=== PATIENT | female | born 1945 | race Caucasian/White ===

== ENCOUNTER → 2020-11-04 08:55 | Outpatient (BNVA) | payer MEDICARE, SELFPAY | PROVIDERS: PCP Internal Medicine; Visit Provider Hospitalist | DX: J98.4 Other disorders of lung (principal); J45.20 Mild intermittent asthma, uncomplicated; I38 Endocarditis, valve unspecified; R91.8 Other nonspecific abnormal finding of lung field | CPT/HCPCS: 99212 ==

== ENCOUNTER → 2021-05-11 12:53 | Outpatient (BNVA) | payer MEDICARE, SELFPAY | PROVIDERS: PCP Internal Medicine; Visit Provider Hospitalist | DX: J44.9 Chronic obstructive pulmonary disease, unspecified (principal) ==

== ENCOUNTER 2021-05-11 13:42 | Outpatient (REF) | payer MEDICARE, SELFPAY ==
[2021-05-11 14:01] LABS: MANUAL DIFF FLAG NO
[2021-05-11 14:06] LABS: Basophils Absolute Auto 0.1 X10*3/uL (0.0-0.2); Basophils Percent Auto 0.9 % (0-2); Eosinophils Absolute Auto 0.3 X10*3/uL (0.0-0.4); Eosinophils Percent Auto 4.2 % (0-4); Hematocrit 35.7 % (37.0-47.0); Imm Gran Abs Auto 0.05 X10*3/uL (0.00-0.03); Imm Gran Pct Auto 0.7 % (0.0-0.4); Lymphocytes Absolute Auto 1.5 X10*3/uL (1.2-4.9); Mean Corpuscular HGB Conc 30.8 g/dl (31.0-35.0); Mean Corpuscular Hemoglobin 26.1 pg (27.0-33.0); Mean Corpuscular Volume 84.6 fL (80.0-98.0); Monocytes Absolute Auto 0.3 X10*3/uL (0.1-1.2); Monocytes Percent Auto 4.3 % (2-11); Neutrophils Absolute Auto 5.3 x10*3/uL (2.0-8.3); Neutrophils Percent Auto 69.9 % (45-73); Platelet Count 241 X10*3/uL (160-400); Red Blood Count 4.22 X10*6/uL (4.20-5.50); Red Cell Distribution Width 14.4 % (11.0-16.0); White Blood Count 7.6 X10*3/uL (4.8-10.8)
[2021-05-11 14:15] LABS: D Dimer High Sensitivity 189 NG/ML
[2021-05-11 14:19] LABS: Anion Gap 11 (12-20); Blood Urea Nitrogen 14 mg/dL (9-16); Calcium 9.5 mg/dL (8.4-10.2); Carbon Dioxide 30 mmol/L (22-29); Chloride 103 mmol/L (96-108); Estimated Glomerular Filt Rate 56; Glucose Random 254 mg/dL (60-115); Potassium 3.7 mmol/L (3.3-5.1); Sodium 140 mmol/L (135-145)
--- NOTE | 2021-05-11 17:38 | PFT_ITS ---
Forced vital capacity and FEV1 are both moderately reduced. FEV1 over FVC ratio is normal. ELA01-59 is also moderately reduced. MVV normal. No response to bronchodilator therapy. Total lung capacity and residual volume are slightly decreased. Diffusion capacity is markedly decreased. CONCLUSION: Mild to moderate degree of restrictive pulmonary disorder. No significant obstructive airways disorder and no response to bronchodilator therapy. Markedly decreased in diffusion capacity may be due to multi factors such as pulmonary Emphysema, Pulmonary vascular disease.and Non Pulmonary factors . Sixto Velasquez MD MSB/MODL / [id number] MTDD
[2021-05-12 15:02] LABS: Scleroderma 70 Antibody <1.0 NEG AI (<1.0 NEG)
[2021-05-12 21:57] LABS: Anti Nuclear Antibody Pattern Nuclear, Homogeneous; Anti Nuclear Antibody Screen POSITIVE (NEGATIVE); Anti Nuclear Antibody Titer 1:40 titer
== END 2021-05-11 13:43 | disposition home or self-care (01) ==
LOC: HO.RESP 13:42
PROVIDERS: PCP Internal Medicine; Visit Provider Hospitalist
DX: I38 Endocarditis, valve unspecified (principal); I27.20 Pulmonary hypertension, unspecified
CPT/HCPCS: 36415; 80048; 85025; 85379; 86038; 86039; 86235; 94060; 94727; 94729; 99212

== ENCOUNTER → 2021-06-18 13:35 | Outpatient (BNVA) | payer MEDICARE, SELFPAY | PROVIDERS: PCP Internal Medicine; Visit Provider Hospitalist | DX: J98.4 Other disorders of lung (principal); J45.20 Mild intermittent asthma, uncomplicated; J40 Bronchitis, not specified as acute or chronic; R91.8 Other nonspecific abnormal finding of lung field; I27.20 Pulmonary hypertension, unspecified; I38 Endocarditis, valve unspecified | CPT/HCPCS: 99212 ==

== ENCOUNTER → 2022-03-08 15:04 | Outpatient (BNVA) | payer MEDICARE, SELFPAY | PROVIDERS: PCP Internal Medicine; Visit Provider Hospitalist | DX: J44.9 Chronic obstructive pulmonary disease, unspecified (principal); J98.4 Other disorders of lung; I27.20 Pulmonary hypertension, unspecified; R91.8 Other nonspecific abnormal finding of lung field; I38 Endocarditis, valve unspecified; J40 Bronchitis, not specified as acute or chronic | CPT/HCPCS: 94618; 99212 ==

== ENCOUNTER → 2022-05-31 13:10 | Outpatient (BNVA) | payer MEDICARE, SELFPAY | PROVIDERS: PCP Internal Medicine; Visit Provider Hospitalist | DX: J44.9 Chronic obstructive pulmonary disease, unspecified (principal); J98.4 Other disorders of lung; R91.8 Other nonspecific abnormal finding of lung field; I27.20 Pulmonary hypertension, unspecified; I38 Endocarditis, valve unspecified; Z99.81 Dependence on supplemental oxygen | CPT/HCPCS: 99212 ==

== ENCOUNTER 2024-07-15 12:56 | Outpatient (AMB) | payer MEDICARE, SELFPAY ==
--- NOTE | 2024-07-15 13:06 | MHC.OFFVIS ---
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 She has been having more shortness of breath lately. She was found to have a nodular finding on her mammogram. Under being a large tumor. She did have surgery November 16 1017 at [facility]. She underwent lumpectomy. Postoperatively she has significant shortness of breath. Chest x-ray demonstrated perihilar congestion and opacities in the diffuse right lung and also right left lung have weight. She was placed on oxygen. After 1 day the patient was discharged. Continued having significant shortness of breath she could not tolerate the symptoms and therefore she went back to the ED at [facility]. There she had a CT scan of the chest demonstrating no evidence of any pulmonary emboli. However, she has small pleural effusions and she has some areas of ground-glass opacities primarily in the mid to upper lung zones. Her brain not her Pap significantly elevated over 1000. She was aggressively diuresed. She was able to be off oxygen CT scan also demonstrated pulmonary nodules. She has had multiple scans in the past primarily abdominal CT scans that have demonstrated stable nodular densities. However, then look at the whole lung field. The patient now is home. Her respiratory status is still an issue. Moderate dyspnea on exertion. She had been on inhalers in the past. However she was having adverse effects with the rec leg cramp. She subsequently is stop the inhalers altogether. She is wondering if she should be on maintenance inhaler. She typically sees the best effect when she is sick. She has not had pulmonary function studies. The patient has been using her CPAP. The CPAP therapy continues to be affecting beneficial. However, she is no longer working appropriately. She does get her supplies through [employer]. It appears the machine has malfunction. And likely needs to be replaced. At this point I will give her placement prescription. She needs to continue using his CPAP due to her increased cardiovascular risk. She does have evidence of pulmonary hypertension. She of also had an echocardiogram demonstrating moderate to severe mitral stenosis. No history rheumatic fever. 07/18/2019 the patient is here for pulmonary follow-up visit. Overall she is feeling better. Monitoring closely her volume status. We did review again her findings from [facility] where she had the elevated brain atretic peptide suggesting heart failure but also had areas of nodular densities and ground-glass opacities on her CT scan. Therefore, repeat CT scan of the chest should be done in November which should be a year from her last 1. We did review her pulmonary function studies demonst rating no evidence of any obstruction although she does have a restrictive ventilatory defect consistent with restrictive lung disease. Partly due to her body habitus. 11/04/2020 the patient is here for pulmonary follow-up visit. Overall the patient has been doing okay from a respiratory status. She continues to have shortness of breath with activity. [id number] severity. Unfortunately, she was told that her mitral valve is getting worse. She was scheduled to see Cardiology for cardiac catheterization. She is thinking about going elsewhere such as [place] to be further evaluated. In the meantime we did review again her pulmonary function studies demonstrating no evidence of any obstruction although she does have a restrictive component. The patient does not have to use regular inhalers although she should have a rescue inhaler available as needed. She was supposed to have a CT scan of the chest. But, with everything going on with her heart she is open to put aside for now. I explained to her that this is important but we can postpone for 6 months. in the meantime she is using her CPAP. The CPAP therapy has been affecting beneficial. However, her CPAP is no longer working his broke she did call her [employer] company and they recommended that she get a new prescription for new CPAP at this time. Will submit 1 to her [employer] company at this time. The patient needs to continue using her CPAP specially with her cardiovascular risk factors in with worsening valvular disease. 05/11/2021 the patient is here for a pulmonary follow-up visit. The patient continues to have some dyspnea on exertion. In addition to that has been feeling more congested lately. Moderate severity. She is coughing up some mucus for the last several days. Denies any fevers or chills. She did follow up in [place]. She did have a cardiac catheterization although I do not have the results. They are concerned about the elevated pulmonary pressures noted on her echocardiogram although explained to her that we more important to look at the pressure readings from the cardiac catheterization. 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 Although, she also has a history of sleep apnea being treated with PAP therapy and also has a history of a pulmonary emboli in the past and no longer any anticoagulation. Therefore I talked to her about doing additional testing to make sure that we assess for the other etiologies of pulmonary hypertension although most likely her etiologies mainly cardiac. The patient will undergo pulmonary function studies today and hopefully we can get a 6 minute walk test if her DLCO was decreased. I also reviewed her cardiac CT scan that she had in [place] at which demonstrated a small subcentemeter pulmonary nodules. 06/18/2021 the patient is here for pulmonary follow-up visit. She continues to have dyspnea on exertion, moderate severity. The patient understands that she does have abnormal PFTs with a severe diffusion impairment. This is likely multifactorial related to her underlying pulmonary hypertension from her underlying vascular disease and also obstructive sleep apnea. The patient needs to use her CPAP regularly. We talked about the importance of doing so. In the meantime she did undergo a V/Q scan which demonstrated decreased perfusion in the central vessels. This could be explained by a dilated pulmonary arterial trunk. [place] CT [place] [facility] [place] Will request copies of the CT to personally visualized the pulmonary trunk. If no clear explanation for her abnormal perfusion scan the patient needs to repeat the CT scan of the chest. She also has pulmonary nodules. She understands the CT scan of the chest that she had in [place] does not incorporate the whole lung since is mainly a cardiac CT scan. The patient is waiting to hear back from [place]. She understands that she does need to undergo a surgical correction especially for that mitral stenosis. Subsequently after that she will probably have to undergoes further intervention for the aortic valve. 03/08/2022 the patient is here for pulmonary follow-up visit. Since we last spoke the patient underwent her open heart surgery for her the repair. She did have a porcine valve placed at the mitral valve, a ring around the tricuspid valve in her aortic valve was opened up. The surgery occurred back in August. Although she does not feel any better from a breathing standpoint. She actually sometimes feels that she is worse. She is very short of breath winded with activity. Moderate severity. She has been participating cardiac rehab. She does have a repeat echo pending soon to readdress her cardiac function and also the pulmonary hypertension. Patient is also struggling with her CPAP. She has a mild a CPAP is broken beyond repair. We did request a replacement machine her [employer] company. We did submit all the paper for the new Pap therapy. The patient does benefit from her CPAP she does use it more than 4 hours a night. Therefore will reach out to her DME company in order to facilitate the process in order to get her a new APAP. during the visit the patient did go for 6 minutes walk test. She did desaturate down to 80% she was dramatic with that occurred. She was then placed on 2 L pulse she did do about better and a also maintained Around 93%. Therefore, will go ahead and also start her on oxygen with activity. Requesting conserving device at 2 L pulse. 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 07/15/2024 the patient is here for a pulmonary follow-up visit. The patient overall is doing about the same. She still complains of dyspnea on exertion, but better. Mild in severity. No longer using oxygen supplementation. Her APAP is not working any longer. It is broken beyond repeair. She needs to get a replacment APAP LYLE. She has cardiovascular risk factors and she has daytime drowsiness with an EPWORTH 11/24. [facility] Medical History (Updated 05/11/21 @ 19:53 by Duane Ahumada MD) Valvular heart disease Pulmonary hypertension Pulmonary nodules Valvular heart disease Asthma Chronic restrictive lung disease COPD (chronic obstructive pulmonary disease) Social History Patient Tobacco Use Status: Never used Tobacco Review of Systems Const Reports daytime sleepiness, Reports difficulty sleeping, Reports fatigue and Denies night sweats ENT Denies change in voice, Denies lip swelling, Denies mouth pain, Reports nasal congestion, Reports nasal discharge and Denies tongue swelling Card Denies chest pain, Reports dyspnea and Reports dyspnea on exertion Resp Reports cough, Reports dyspnea and Reports dyspnea on exertion GI Denies abdominal pain Musc Denies no additional complaints Neuro Denies Neuro-related abnormal movements Psych Denies no additional complaints Endo Reports fatigue Stoney/Lymph Denies easy bleeding and Denies lymphadenopathy Aller/Immun Denies lip swelling and Denies tongue swelling Physical Exam Vital Signs: Last Vital Signs Pulse 71 07/15/24 13:07 BP 130/66 07/15/24 13:07 Pulse Ox 97 07/15/24 13:07 Oxygen Delivery Method Room Air 07/15/24 13:07 BMI result Body Mass Index 27.8 Const General: alert Neck Neck: Yes normal visual inspection, Yes full ROM and Yes no lymphadenopathy Chest Chest palpation & inspection: normal inspection of the chest Resp Effort & Inspection: normal respiratory effort Auscultation: diminished lung sounds Cardio Rate: regular rate Rhythm: regular rhythm Heart sounds: S1 normal heart sound present, S2 normal heart sound present and Murmur heart sound present GI Palpation (GI): Soft to palpation and nontender Auscultation: normal bowel sounds Skin General skin exam: rashes and/or lesions noted Assessment & Plan Assessment & Plan (1) COPD (chronic obstructive pulmonary disease): Code(s): J44.9 - Chronic obstructive pulmonary disease, unspecified Category: Medical (2) Chronic restrictive lung disease: Code(s): J98.4 - Other disorders of lung Category: Medical (3) Pulmonary nodules: Code(s): R91.8 - Other nonspecific abnormal finding of lung field Category: Medical (4) Pulmonary hypertension: Code(s): I27.20 - Pulmonary hypertension, unspecified Category: Medical (5) Valvular heart disease: Comment: mitral stenosis and aortic stenosis Code(s): I38 - Endocarditis, valve unspecified Category: Medical (6) Bronchitis: Code(s): J40 - Bronchitis, not specified as acute or chronic Category: Medical Plan APAP therapy. Needs a replacement APAP. Her APAP is broken beyond repair stopped oxygen SID as needed F/U 6 months Coding Level of Care Code Est Pt Level 4 (51486) Complex EM visit Add On G2211 Diagnoses COPD (chronic obstructive pulmonary disease) J44.9 Chronic restrictive lung disease J98.4 Pulmonary nodules R91.8 Pulmonary hypertension I27.20 Valvular heart disease I38 Bronchitis J40 Time Spent (min) 17
[2024-07-15 13:07] VITALS: BP 130/66; PULSE 71; O2SAT 97; BMI 27.8
--- OUTSIDE RECORDS SUMMARY | 2024-07-15 14:30 | XMS_ITS ---
Author Organization [facility] Address [address] [facility] [address] [facility] [place] [place] [address] Care Team Providers Care Interventional Physiatrist Name Role Phone Ynes Terence Primary Care Provider LUZ MARINA Murphy Unavailable [phone] Allergies Allergen (clinical drug ingredient) Drug/Non Drug Allergy documented on EMR Reaction Allergy Type Onset Date Status oxycodone Oxycodone headache Drug Allergy Active tramadol Tramadol headache Drug Allergy Active REASON FOR VISIT 3 month f/u Medications Medication SIG (Take, Route, Frequency, Duration) Notes Start Date End Date Status Diclofenac Sodium 1 % as directed Externally twice daily for pain for 90 days Active Lidocaine-Prilocaine 2.5-2.5 % as directed Externally twice daily for pain for 90 days Active Capsaicin-Menthol 0.025-10 % as directed Externally twice daily as needed for pain for 90 days 08/11/2023 Not-Taking Menthol (Topical Analgesic) 4 % as directed Externally two times daily for 90 days 11/22/2023 Not-Taking Diclofenac Sodium 1 % as directed Externally twice daily PRN pain for 90 days Not-Taking Digoxin 125 MCG 1 tablet Orally Active Aspirin 81 MG 1 tablet Orally Once a day Active Acetaminophen 325 MG 1 tablet as needed Orally every 4 hrs PRN Active Torsemide 20 MG as directed Orally 40MG in AM an d 20MG in the afternoon Active Escitalopram Oxalate 10 MG 1 tablet Orally Once a day Active Ferrous Sulfate 325 (65 Fe) MG 1 tablet Orally Once a day Active Pepcid 40 MG 1 tablet at bedtime Orally Once a day Active Colazal 750 MG 2 capsules Orally Twice a day Active Vitamin D 50 MCG (2000 UT) 1 capsule Orally Once a day Active Stool Softener 100 MG 1 capsule as needed Orally Once a day Active Levothyroxine Sodium 50 MCG 1 tablet in the morning on an empty stomach Orally Once a day Active Eliquis 5 MG 1 tablet Orally Twice a day Active Multi Adult Gummies - as directed Orally Active Potassium Chloride ER 10 MEQ 1 tablet with food Orally Twice a day Active Metoprolol Succinate ER 200 MG 1 tablet Orally Once a day Active Biotin 10 MG 1 tablet Orally Once a day Active Calcium Active Probiotic Active Lidocaine 5 % 1 patch remove after 12 hours Externally Once a day PRN Active Clobetasol Propionate 0.05 % 1 application Externally Twice a day Active Ozempic (1 MG/DOSE) 4 MG/3ML as directed Subcutaneous Active Gabapentin 400 MG 1 capsule Orally Once a day Active Estradiol 10 MCG 1 tablet Vaginal Two times a Week Active Glimepiride 4 MG 1 tablet with breakfast or the first main meal of the day Orally Twice a day Active Vital Signs Temperature 96.5 degrees Fahrenheit 05/24/19 25 Heart Rate 83 /min 05/24/2024 Respiratory Rate 16 /min 05/24/2024 Height 5ft 8in in 05/24/2024 Weight 186.8 lbs 05/24/2024 BMI 28.4 kg/m2 05/24/2024 Encounters Encounter Location Date Provider Diagnosis [facility] [address] [facility] [address] [place] [address] 05/24/2024 LUZ MARINA OROZCO Type 2 diabetes mellitus with diabetic polyneuropathy E11.42 ; Venous insufficiency I87.2 ; Arthritis of joint of toe M19.079 ; Dystrophic nail L60.3 ; Pain in right foot M79.671 and Pain in left foot M79.672 Assessments Encounter Date Diagnosis (ICD Code) Assessment Notes Treatment Notes Treatment Clinical Notes Section Notes 05/24/2024 Type 2 diabetes mellitus with diabetic polyneuropathy (ICD-10 - E11.42) I reviewed neuropathy and why it occurs in diabetics. I educated the patient on proper blood sugar control and the importance of an HgBA1c of less than 7.0%. I reviewed the signs and symptoms of neuropathy with the patient. I explained she does have some neuropathy in her feet. We discussed she is already taking Gabapentin for her fibromyalgia which is also used to treat neuropathy. We discussed supplementing with a topical therapy. Continue using EMLA cream to apply to both feet BID PRN pain. I explained there is no cure for neuropathy, only symptom management. 05/24/2024 Venous insufficiency (ICD-10 - I87.2) We discussed the discoloration around the ankle is her varicosities. Her ultrasound did come back normal. 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 05/24/2024 Arthritis of joint of toe (ICD-10 - M19.079) We discussed her x-ray findings. I explained she does have osteopenia in her feet, likely from the disuse when she was in rehab. We also discussed she does have arthritis in her toes. We discussed she cannot take oral NSAIDs due to her anticoagulation therapy. Her insruance will not cover the diclofenac gel. 05/24/2024 Dystrophic nail (ICD-10 - L60.3) Aseptic trimming of toenails x 10 with stencil cutter, pt tolerated well. Discussed with the patient that routine nail care services are only covered by insurance every 60 days. Pt understands that if they would like to return prior to this time frame, they may have to pay out of pocket. Pt to return for another evaluation in 3 months. 05/24/2024 Pain in right foot (ICD-10 - M79.671) We discussed the nail on the right big toe is lifting due to microtrauma. There is a new toenail growing out behind it. We discussed this typically takes about 12 months. I explained once the new nail is almost fully grown in, the nail on top will usually fall off on its own. 05/24/2024 Pain in left foot (ICD-10 - M79.672) Plan Of Treatment Medication Medication Name Sig Start Date Stop Date Notes Diclofenac Sodium 1 % as directed [employer] ally twice daily for pain for 90 days Lidocaine-Prilocaine 2.5-2.5 % as directed Externally twice daily for pain for 90 days Treatment Notes Assessment Notes Type 2 diabetes mellitus wit h diabetic polyneuropathy I reviewed neuropathy and why it occurs in diabetics. I educated the patient on proper blood sugar control and the importance of an HgBA1c of less than 7.0%. I reviewed the signs and symptoms of neuropathy with the patient. I explained she does have some neuropathy in her feet. We discussed she is already taking Gabapentin for her fibromyalgia which is also used to treat neuropathy. We discussed supplementing with a topical therapy. Continue using EMLA cream to apply to both feet BID PRN pain. I explained there is no cure for neuropathy, only symptom management. Venous insufficiency We discussed the di scoloration around the ankle is her varicosities. Her ultrasound did come back normal. 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 Arthritis of joint of toe We discussed h er x-ray findings. I explained she does have osteopenia in her feet, likely from the disuse when she was in rehab. We also discussed she does have arthritis in her toes. We discussed she cannot take oral NSAIDs due to her anticoagulation therapy. Her insruance will not cover the diclofenac gel. Dystrophic nail Aseptic trimming of toenails x 10 with stencil cutter, pt tolerated well. Discussed with the patient that routine nail care services are only covered by insurance every 60 days. Pt understands that if they would like to return prior to this time frame, they may have to pay out of pocket. Pt to return for another evaluation in 3 months. Pain in right foot We discussed the james l on the right big toe is lifting due to microtrauma. There is a new toenail growing out behind it. We discussed this typically takes about 12 months. I explained once the new nail is almost fully grown in, the nail on top will usually fall off on its own. Next Appt Details Follow Up: 3 Months, Reason: Provider Name:LUZ MARINA OROZCO, 08/28/2024 01:30:00 PM, [address], [address], Progress Notes * My CANODOB:[birth year] (79 yo F)Acc No.[id number]:05/24/2024 Progress Note Patient:?My CANO Provider:?Luz Marina Orozco DPM :1945???Age:79 Y???Sex:Female D ate:05/24/2024 Phone: Address: [address] [id number] Pcp:Terence Quick Subjective: * Chief Complaints: * ???3 month f/u * HPI: ???Constitutional:?This 79 y/o female returns to my office with a complaint of bilateral foot and toe pain, possible neuropathy, a diabetic foot evaluation, and painful long toenails. She states the Emla cream has been helping with the burning pain. Her insurance refused the topical NSAID cream. She states now her arches do get painful and sore. She has a history of inflammatory arthritis, fibromyalgia. She is a diabetic, her last hgba1c was 8.0. Her PCP changed her to Ozempic. Her last visit with her PCP care team was 04/25/2024.?She complains that her toenails are long, thick and difficult to cut. She states they cause pain in her shoes. The right big toenail is sore today. She also complains of increased ankle swelling with discoloration. She states this comes and goes, and does not happen every day. 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 She has no other foot complaints this visit. Allergies and medical history reviewed. * ROS:?GENERAL: Pt denies nausea, fever, vomiting, chills, or shortness of breath. Pt in NAD. ALLERGY: patient denies any new allergy HEME/ONC: patient denies any bleeding or clotting disorders, currently on anticoagulation CARDIOLOGY: pt denies chest pain, palpitations LUNGS: pt denies shortness of breath ABDOMEN: patient denies any bloating, abdominal pain, or swelling MUSCULOSKELETAL: See HPI, patient has hip pain and lower extremity pain, shoulder pain SKIN: see HPI, otherwise no lesions, rash or itching NEURO: No persistent headache, weakness or numbness PSYCH: patient denies any new anxiety or depression The remainder of the review of systems is noncontributory. * Medical History:? * Surgical History:?tubal liga tion left david-urethral excision, right upper labia biopsy, introitus biopsy 05/19/2014left knee arthroscopic surgery 06/12/2017facial lesion removed 10/2018phyllodes tumor removed- left breast 11/16/2018[facility]: repair of mitral, tricuspid and atrial valves 08/18/2021ight hip fracture repair 3personal history of (healed) traumatic fracture, pain in right hip 03/22/2023right hip replacement 03/2023 * Hospitalization/Major Diagno stic Procedure:?[facility]- difficulty breathing 11/18/2018-11/19/2018 vertebrobasilar TIA 09/22/2021-09/24/2021 [facility] 4 nights Afib Wing- fall at home- right hip fx 08/31/2022repair mitral, tricuspid and atrial valves 08/18/2021ight hip replacement 03/2023vaginal delivery (boy) 1971vaginal delivery (boy) 1973vaginal delivery (boy) 1975 * Family History:?Son(s): sherif mcdainel, 43y/o- GI issues, benign colon [id number]- unknown [id number]- benign colon polyps.?Father: , CHF, colon polyps, prostate cancer, heart disease.?Mother: , CHD, [place], hx of vulvar cancer, heart disease, depression, mental illness.?Siblings: brother - pulmonary embolism, diabetes was on insulin, myasthenia gravis, sleep apnea.?3 son(s) - healthy. .? * Social History:?Tobacco: never a smoker Alcohol: no. * Medications:?TakingOzempic ( 1 MG/DOSE) 4 MG/3ML Solution Pen-injector as directed Subcutaneous Glimepiride 4 MG Tablet 1 tablet with breakfast or the first main meal of the day Orally Twice a day Estradiol 10 MCG Tablet 1 tablet Vaginal Two times a Week Gabapentin 400 MG Capsule 1 capsule Orally Once a day Clobetasol Propionate 0.05 % Ointment 1 application Externally Twice a day Lidocaine 5 % Patch 1 patch remove after 12 hours Externally Once a day , Notes to Pharmacist: PRNProbiotic Calcium Biotin 10 MG Tablet 1 tablet Orally Once a day Multi Adult Gummies - Tablet Chewable as directed Orally Eliquis 5 MG Tablet 1 tablet Orally Twice a day Levothyroxine Sodium 50 MCG Tablet 1 tablet in the morning on an empty stomach Orally Once a day Metoprolol Succinate ER 200 MG Tablet Extended Release 24 Hour 1 tablet Orally Once a day Potassium Chloride ER 10 MEQ Tablet Extended Release 1 tablet with food Orally Twice a day Stool Softener 100 MG Capsule 1 capsule as needed Orally Once a day Vitamin D 50 MCG (1999 UT) Capsule 1 capsule Orally Once a day Colazal 750 MG Capsule 2 capsules Orally Twice a day Pepcid 40 MG Tablet 1 tablet at bedtime Orally Once a day Ferrous Sulfate 325 (65 Fe) MG Tablet 1 tablet Orally Once a day Torsemide 20 MG Tablet as directed Orally , Notes to Pharmacist: 40MG in AM and 20MG in the afternoonAcetaminophen 325 MG Tablet 1 tablet as needed Orally every 4 hrs , Notes to Pharmacist: PRNAspirin 81 MG Tablet Delayed Release 1 tablet Orally Once a day Digoxin 125 MCG Tablet 1 tablet Orally Escitalopram Oxalate 10 MG Tablet 1 tablet Orally Once a day Lidocaine-Prilocaine 2.5-2.5 % Cream as directed Externally twice daily for pain Diclofenac Sodium 1 % Gel as directed Externally twice daily for pain Taking Ozempic (1 MG/DOSE) 4 MG/3ML Solution Pen-injector as directed Subcutaneous Taking Glimepiride 4 MG Tablet 1 tablet with breakfast or the first main meal of the day Orally Twice a day Taking Estradiol 10 MCG Tablet 1 tablet Vaginal Two times a Week Taking Gabapentin 400 MG Capsule 1 capsule Orally Once a day Taking Clobetasol Propionate 0.05 % Ointment 1 application Externally Twice a day Taking Lidocaine 5 % Patch 1 patch remove after 12 hours Externally Once a day , Notes to Pharmacist: PRNTaking Probiotic Taking Calcium Taking Biotin 10 MG Tablet 1 tablet Orally Once a day Taking Multi Adult Gummies - Tablet Chewable as directed Orally Taking Eliquis 5 MG Tablet 1 tablet Orally Twice a day Taking Levothyroxine Sodium 50 MCG Tablet 1 tablet in the morning on an empty stomach Orally Once a day Taking Metoprolol Succinate ER 200 MG Tablet Extended Release 24 Hour 1 tablet Orally Once a day Taking Potassium Chloride ER 10 MEQ Tablet Extended Release 1 tablet with food Orally Twice a day Taking Stool Softener 100 MG Capsule 1 capsule as needed Orally Once a day Taking Vitamin D 50 MCG (2000 UT) Capsule 1 capsule Orally Once a day Taking Colazal 750 MG Capsule 2 capsules Orally Twice a day Taking Pepcid 40 MG Tablet 1 tablet at bedtime Orally Once a day Taking Ferrous Sulfate 325 (65 Fe) MG Tablet 1 tablet Orally Once a day Taking Torsemide 20 MG Tablet as directed Orally , Notes to Pharmacist: 40MG in AM and 20MG in the afternoonTaking Acetaminophen 325 MG Tablet 1 tablet as needed Orally every 4 hrs , Notes to Pharmacist: PRNTaking Aspirin 81 MG Tablet Delayed Release 1 tablet Orally Once a day Taking Digoxin 125 MCG Tablet 1 tablet Orally Taking Escitalopram Oxalate 10 MG Tablet 1 tablet Orally Once a day Taking Lidocaine-Prilocaine 2.5-2.5 % Cream as directed Externally twice daily for pain Taking Diclofenac Sodium 1 % Gel as directed Externally twice daily for pain Not-TakingDiclofenac Sodium 1 % Gel as directed Externally twice daily PRN pain Menthol (Topical Analgesic) 4 % Cream as directed Externally two times daily Capsaicin-Menthol 0.025-10 % Gel as directed Externally twice daily as needed for pain Medication List reviewed and reconciled with the patientNot-Taking Diclofenac Sodium 1 % Gel as directed Externally twice daily PRN pain Not-Taking Menthol (Topical Analgesic) 4 % Cream as directed Externally two times daily Not-Taking Capsaicin-Menthol 0.025-10 % Gel as directed Externally twice daily as needed for pain Medication List reviewed and reconciled with the patient * Allergies:?Oxycodone: headac heTramadol: headacheno[Allergies Verified] Objective: * Vitals:?Wt: 186.8 lbs, Ht: 5 ft 8in, BMI: 28.4 Index, HR: 83 /min, Temp: 96.5 F, RR: 16 /min, Ht-cm: 172.72, Wt-k.73 kg. * Examination: ???General Examination: ???GENERAL: Patient appears well nourished, with NAD. VASCULAR: Dorsalis pedis pulses are 2/4 bilaterally and Posterior tibial pulses are 1/4 bilaterally. Capillary filling time within normal limits the digits. No pallor on elevation or rubor on dependency. No hair growth. Extensive varicosities around the ankles with edema, no pain. Denies rest pain or claudication pain. Each foot temperature is within normal limits. NEUROLOGICAL: Sharp/dull sensation intact bilaterally, protective sensation intact 10/10 with 5.07 [place] bilaterally, vibratory sensation with tuning fork absent to the tibial tuberosity bilaterally, position sense intact bilaterally to the tibial tuberosity. ORTHOPEDIC: Good muscle strength 4+/5 of all flexors and extensors. Dorsi flexion of ankle ,0 degrees, plantar flexion WNL. No muscle atrophy. Flexible hammering of toes 2,3,4 of the right foot. Tenderness on palpation of the central plantar arch bilaterally. Tenderness on palaption submetatarsal 2,3,4 bilaterally with atrophied plantar fat pad. DERMATOLOGICAL: No masses, openings, or skin lesions noted. Onycholysis of the right hallux toenail with new nail growing proximally with mild tenderness on palpatiom. Thin, dry, atrophic skin. 4mm thickened elongated yellowed discolored toenails of all ten toes with subungual debris and tenderness on palpation. BIOMECHANICS: STJ ROM limited, MTJ ROM limited, 1st MPJ ROM limited. On weight bearing, flexible pes planus. SHOES: sneakers. Assessment: * Assessment: 1.?Type 2 diabetes mellitus with diabetic polyneuropathy - E11.42 (Primary)???2.?Venous insufficiency - I87.2???3.?Arthritis of joint of toe - M19.079???4.?Dystrophic nail - L60.3???5.?Pain in right foot - M79.671 ??6.?Pain in left foot - M79.672??? Plan: * Treatment: 2.?Venous insufficiency? Notes: We discussed the discoloration around the ankle is her varicosities. Her ultrasound did come back normal. 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 ?? 3.?Arthritis of joint of toe ? Start Diclofenac Sodium Gel, 1 %, as directed, Externally, twice daily for pain, 90 days, 60, Refills 2.?? Notes: We discussed her x-ray findings. I explained she does have osteopenia in her feet, likely from the disuse when she was in rehab. We also discussed she does have arthritis in her toes. We discussed she cannot take oral NSAIDs due to her anticoagulation therapy. Her insruance will not cover the diclofenac gel. ?? 4.?Dystrophic nail? Notes: Aseptic trimming of toenails x 10 with stencil cutter, pt tolerated well. Discussed with the patient that routine nail care services are only covered by insurance every 60 days. Pt understands that if they would like to return prior to this time frame, they may have to pay out of pocket. Pt to return for another evaluation in 3 months.?? 5.?Pain in right foot? Notes: We discussed the nail on the right big toe is lifting due to microtrauma. There is a new toenail growing out behind it. We discussed this typically takes about 12 months. I explained once the new nail is almost fully grown in, the nail on top will usually fall off on its own.?? * Procedure Codes:?G0127 LOU ING DYSTROPHIC NAILS ANY #, Modifiers: q9 * Follow Up:?3 Months * Billing Information: * Visit Code:? 46242 Office Visit, Est Pt., Level 3. Modifiers: 25 * Procedure Codes:? G0127 TRIMMING DYSTROPHIC NAILS ANY #. Modifiers: q9 * Sign off status: Completed true * Provider:Alberto Orozco DPTimothy Date:? 05/24/2024 Generated for Yousif antonio/Kong/Yvette on:?07/15/2024 02:29 PM EDT History and Physical Notes * HPI (History of Present Illness) Category Sub-Category Detail Notes Category Not es Constitutional This 79 y/o f taiwo returns to my office with a complaint of bilateral foot and toe pain, possible neuropathy, a diabetic foot evaluation, and painful long toenails. She states the Emla cream has been helping with the burning pain. Her insurance refused the topical NSAID cream. She states now her arches do get painful and sore. She has a history of inflammatory arthritis, fibromyalgia. She is a diabetic, her last hgba1c was 8.0. Her PCP changed her to Ozempic. Her last visit with her PCP care team was 04/25/2024. She complains that her toenails are long, thick and difficult to cut. She states they cause pain in her shoes. The right big toenail is sore today. She also complains of increased ankle swelling with discoloration. She states this comes and goes, and does not happen every day. 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 She has no other foot complaints this visit. Allergies and medical history reviewed. Examination Category Sub-Category Detail Notes Category Not es General Examination GENERAL: Patient appears well nourished, with NAD. VASCULAR: Dorsalis pedis pulses are 2/4 bilaterally and Posterior tibial pulses are 1/4 bilaterally. Capillary filling time within normal limits the digits. No pallor on elevation or rubor on dependency. No hair growth. Extensive varicosities around the ankles with edema, no pain. Denies rest pain or claudication pain. Each foot temperature is within normal limits. NEUROLOGICAL: Sharp/dull sensation intact bilaterally, protective sensation intact 10/10 with 5.07 [place] bilaterally, vibratory sensation with tuning fork absent to the tibial tuberosity bilaterally, position sense intact bilaterally to the tibial tuberosity. ORTHOPEDIC: Good muscle strength 4+/5 of all flexors and extensors. Dorsi flexion of ankle ,0 degrees, plantar flexion WNL. No muscle atrophy. Flexible hammering of toes 2,3,4 of the right foot. Tenderness on palpation of the central plantar arch bilaterally. Tenderness on palaption submetatarsal 2,3,4 bilaterally with atrophied plantar fat pad. DERMATOLOGICAL: No masses, openings, or skin lesions noted. Onycholysis of the right hallux toenail with new nail growing proximally with mild tenderness on palpatiom. Thin, dry, atrophic skin. 4mm thickened elongated yellowed discolored toenails of all ten toes with subungual debris and tenderness on palpation. BIOMECHANICS: STJ ROM limited, MTJ ROM limited, 1st MPJ ROM limited. On weight bearing, flexible pes planus. SHOES: sneakers
--- OUTSIDE RECORDS SUMMARY | 2024-07-15 14:30 | XMS_ITS ---
Author Organization [facility] Address [address] [facility] [address] [facility], [place] [address] Care Team Providers Care Licensed Massage Therapist Name Role Phone Ynes Terence Primary Care Provider LUZ MARINA Murphy Unavailable [phone] Allergies Allergen (clinical drug ingredient) Drug/Non Drug Allergy documented on EMR Reaction Allergy Type Onset Date Status oxycodone Oxycodone headache Drug Allergy Active tramadol Tramadol headache Drug Allergy Active REASON FOR VISIT 3 month f/u Medications Medication SIG (Take, Route, Frequency, Duration) Notes Start Date End Date Status Gabapentin 400 MG 1 capsule Orally Once a day Active Calcium Active Clobetasol Propionate 0.05 % 1 application Externally Twice a day Active Probiotic Active Lidocaine 5 % 1 patch remove after 12 hours Externally Once a day PRN Active Lidocaine-Prilocaine 2.5-2.5 % as directed Externally twice daily for pain for 90 days Active Glimepiride 4 MG 1 tablet with breakfast or the first main meal of the day Orally Twice a day Active Diclofenac Sodium 1 % as directed Externally twice daily for pain for 90 days Active Estradiol 10 MCG 1 tablet Vaginal Two times a Week Active Capsaicin-Menthol 0.025-10 % as directed Externally twice daily as needed for pain for 90 days 08/11/2023 Not-Taking Escitalopram Oxalate 10 MG 1 tablet Orally Once a day Active Digoxin 125 MCG 1 tablet Orally Active Aspirin 81 MG 1 tablet Orally Once a day Active Menthol (Topical Analgesic) 4 % as directed Externally two times daily for 90 days 11/22/2023 Not-Taking Diclofenac Sodium 1 % as directed Externally twice daily PRN pain for 90 days Not-Taking Torsemide 20 MG as directed Orally 40MG in AM an d 20MG in the afternoon Active Ferrous Sulfate 325 (65 Fe) MG 1 tablet Orally Once a day Active Acetaminophen 325 MG 1 tablet as needed Orally every 4 hrs PRN Active Pepcid 40 MG 1 tablet at bedtime Orally Once a day Active Colazal 750 MG 2 capsules Orally Twice a day Active Metoprolol Succinate ER 200 MG 1 tablet Orally Once a day Active Levothyroxine Sodium 50 MCG 1 tablet in the morning on an empty stomach Orally Once a day Active Potassium Chloride ER 10 MEQ 1 tablet with food Orally Twice a day Active Vitamin D 50 MCG (1999 UT) 1 capsule Orally Once a day Active Stool Softener 100 MG 1 capsule as needed Orally Once a day Active Biotin 10 MG 1 tablet Orally Once a day Active Eliquis 5 MG 1 tablet Orally Twice a day Active Multi Adult Gummies - as directed Orally Active Vital Signs Temperature 96.6 degrees Fahrenheit 02/21/20 Heart Rate 81 /min 02/21/2024 Respiratory Rate 12 /min 02/21/2024 Height 5ft 8in in 02/21/2024 Weight 185.2 lbs 02/21/2024 BMI 28.16 kg/m2 02/21/2024 Encounters Encounter Location Date Provider Diagnosis [facility] [address] [facility] [address] [place] [address] 02/21/2024 LUZ MARINA OROZCO Type 2 diabetes mellitus with diabetic polyneuropathy E11.42 ; Venous insufficiency I87.2 ; Arthritis of joint of toe M19.079 ; Dystrophic nail L60.3 ; Pain in right foot M79.671 and Pain in left foot M79.672 Assessments Encounter Date Diagnosis (ICD Code) Assessment Notes Treatment Notes Treatment Clinical Notes Section Notes 02/21/2024 Type 2 diabetes mellitus with diabetic polyneuropathy [...] no cure for neuropathy, only symptom management. 02/21/2024 Venous insufficiency (ICD-10 - I87.2) We discussed the discoloration around the ankle is her varicosities. Her ultrasound did come back normal. 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 02/21/2024 Arthritis of joint of toe (ICD-10 - M19.079) We discussed her x-ray findings. I explained she does have osteopenia in her feet, likely from the disuse when she was in rehab. We also discussed she does have arthritis in her toes. We discussed she cannot take oral NSAIDs due to her anticoagulation therapy. Her insruance will not cover the diclofenac gel. 02/21/2024 Dystrophic nail (ICD-10 - L60.3) Aseptic trimming of toenails x 10 with band nailer, pt tolerated well. Discussed with the patient that routine nail care services are only covered by insurance every 60 days. Pt understands that if they would like to return prior to this time frame, they may have to pay out of pocket. Pt to return for another evaluation in 3 months. 02/21/2024 Pain in right foot (ICD-10 - M79.671) We discussed the nail on the right big toe is lifting due to microtrauma. There is a new toenail growing out behind it. We discussed this typically takes about 12 months. I explained once the new nail is almost fully grown in, the nail on top will usually fall off on its own. 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 Discussed with the patient [...] MARINA OROZCO, 08/28/2024 01:30:00 PM, [address] [address], [place], [address], Progress Notes * My CANODOB:[birth year] (79 yo F)Acc No.[id number]:02/21/2024 Progress Note Patient:?My CANO Provider:?Luz Marina Orozco DPM :1945???Age:79 Y???Sex:Female D ate:02/21/2024 Phone: Address: [address] [id number] Pcp:Terence Quick Subjective: * Chief Complaints: * ???3 month f/u * HPI: ???Constitutional:? This 79 y/o female returns to my office [...] a diabetic, her last hgba1c was 8.0. She last saw her PCP care team for diabetes management one month ago. She complains that her toenails are long, [...] and atrial valves 08/18/2021ight hip fracture repair 08/25/2022ersonal history of (healed) traumatic fracture, pain in right hip 03/22/2023right hip replacement 03/2023 * Hospitalization/Major Diagno stic Procedure:?[facility]- difficulty breathing 11/18/2018-11/19/2018 vertebrobasilar TIA 09/22/2021-09/24/2021 [facility] 4 nights Afib [facility]- fall at home- right hip fx 08/31/2022repair mitral, tricuspid and atrial valves 08/18/2021ight hip replacement 03/2023vaginal delivery (boy) 1971vaginal delivery (boy) 1973vaginal delivery (boy) 1975 * Family History:?Son(s): sehrif mcdaniel, 43y/o- GI issues, benign colon ljdmxi13m/o- unknown lnnlbs73n/o- benign colon polyps.?Father: , CHF, colon polyps, prostate cancer, heart disease.?Mother: , CHD, [place], hx of vulvar cancer, heart disease, depression, mental illness.?Siblings: brother - pulmonary embolism, diabetes was on insulin, myasthenia gravis, sleep apnea.?3 son(s) - healthy. .? * Social History:?Tobacco: never a smoker Alcohol: no. * Medications:?TakingGlimepiri de 4 MG Tablet 1 tablet with breakfast [...] Once a day Vitamin D 50 MCG (2000 UT) Capsule [...] directed Externally twice daily for pain Taking Glimepiride 4 MG Tablet 1 tablet [...] headac heTramadol: headacheno[Allergies Verified] Objective: * Vitals:?Wt: 185.2 lbs, Ht: 5 ft 8in, BMI: 28.16 Index, HR: 81 /min, Temp: 96.6 F, RR: 12 /min, Ht-cm: 172.72, Wt-k.01 kg. * Examination: ???General Examination: ???GENERAL: Patient appears well nourished, with NAD. ?VASCULAR: Dorsalis pedis pulses are 2/4 bilaterally and Posterior tibial pulses are 1/4 bilaterally. Capillary filling time within normal limits the digits. No pallor on elevation or rubor on dependency. No hair growth. Extensive varicosities around the ankles with edema, no pain. Denies rest pain or claudication pain. Each foot temperature is within normal limits. ?NEUROLOGICAL: Sharp/dull sensation intact bilaterally, protective sensation intact 10/10 with 5.07 Augusta Solo bilaterally, vibratory sensation with tuning fork absent to the tibial tuberosity bilaterally, position sense intact bilaterally to the tibial tuberosity. ?ORTHOPEDIC: Good muscle strength 4+/5 of all flexors and extensors. Dorsi flexion of ankle ,0 degrees, plantar flexion WNL. No muscle atrophy. Flexible hammering of toes 2,3,4 of the right foot. Tenderness on palpation of the central plantar arch bilaterally. Tenderness on palaption submetatarsal 2,3,4 bilaterally with atrophied plantar fat pad. ?DERMATOLOGICAL: No masses, openings, or skin lesions noted. Onycholysis of the right hallux toenail with new nail growing proximally with mild tenderness on palpatiom. Thin, dry, atrophic skin. 4mm thickened elongated yellowed discolored toenails of all ten toes with subungual debris and tenderness on palpation. ?BIOMECHANICS: STJ ROM limited, MTJ ROM limited, 1st MPJ ROM limited. On weight bearing, flexible pes planus. ?SHOES: sneakers. Assessment: * Assessment: 1.?Type 2 diabetes mellitus with diabetic polyneuropathy - E11.42 (Primary)?2.?Venous insufficiency - I87.2?3.?Arthritis of joint of toe - M19.079?4.?Dystrophic nail - L60.3?5.?Pain in right foot - M79.671?6.?Pain in left foot - M79.672? Plan: * Treatment: 2.?Venous insufficiency? Notes: We [...] Aseptic trimming of toenails x 10 with band nailer, pt tolerated well. Discussed with the patient [...] Months * Billing Information: * Visit Code:? 05606 Office Visit, Est Pt., Level 3. Modifiers: 25 * Procedure Codes:? G0127 TRIMMING DYSTROPHIC NAILS ANY #. Modifiers: q9 * Sign off status: Completed true * Provider:?Luz Marina Orozco DPM Date:? 02/21/2024 Generated for Yousif antonio/Kong/Dolroesitting on:?07/15/2024 02:29 PM EDT History and Physical [...] a diabetic, her last hgba1c was 8.0. She last saw her PCP care team for diabetes management one month ago. She complains that her toenails are long, [...] bilaterally, protective sensation intact 10/10 with 5.07 Augusta Solo bilaterally, vibratory sensation with tuning fork [...]
--- OUTSIDE RECORDS SUMMARY | 2024-07-15 14:31 | XMS_ITS ---
Author Organization [facility] Address [address] [address] Care Team Providers Care Interlacer Name Role Phone Terence Quick Primary Care Provider FATOU Murphy Unavailable [phone] REASON FOR VISIT patient's last pcp visit Encounters Encounter Location Date Provider Diagnosis [facility] [address] [facility] [address] [place] [address] 05/16/2024 FATOU DICKSON Plan Of Treatment Next Appt Details Provider Name:FATOU DICKSON, 08/28/2024 01:30:00 PM, [address] [address], [place], [address], Progress Notes * RACHAELJohnpatyDOB:[birth year] (79 yo F)Acc No.[id number]:05/16/2024 Patient:?My CANO :1945???Age:79 Y???Sex:Female Phone: Address: [place] [address] * true * Date:? Generated for Yousif antonio/Kong/eTransmitting on:?07/15/2024 02:30 PM EDT
--- OUTSIDE RECORDS SUMMARY | 2024-07-15 14:31 | XMS_ITS | Patient Health Record ---
Author Organization [facility] Address [address] [facility] [address] [place] [address] Care Team Providers Care Grape Picker Name Role Phone Ynes Terence Primary Care Provider FATOU Murphy Unavailable [phone] Allergies Allergen (clinical drug ingredient) Drug/Non Drug Allergy documented on EMR Reaction Allergy Type Onset Date Status oxycodone Oxycodone headache Drug Allergy Active tramadol Tramadol headache Drug Allergy Active Results Component Value Reference Range Notes Ultrasound : Doppler : Veins Leg Juan Manuel. Reviewed date:08/24/2023 11:12:18 AM Interpretation: Performing Lab: Notes/Report: Reason For Referral No Information Medications Medication SIG (Take, Route, Frequency, Duration) Notes Start Date End Date Status Pepcid 40 MG 1 tablet at bedtime Orally Once a day Active Colazal 750 MG 2 capsules Orally Twice a day Active Vitamin D 50 MCG (1999 UT) 1 capsule Orally Once a day Active Stool Softener 100 MG 1 capsule as needed Orally Once a day Active Potassium Chloride ER 10 MEQ 1 tablet with food Orally Twice a day Active Metoprolol Succinate ER 200 MG 1 tablet Orally Once a day Active Levothyroxine Sodium 50 MCG 1 tablet in the morning on an empty stomach Orally Once a day Active Eliquis 5 MG 1 tablet Orally Twice a day Active Diclofenac Sodium 1 % as directed Externally twice daily for pain for 90 days Active Multi Adult Gummies - as directed Orally Active Lidocaine-Prilocaine 2.5-2.5 % as directed Externally twice daily for pain for 90 days Active Biotin 10 MG 1 tablet Orally Once a day Active Capsaicin-Menthol 0.025-10 % as directed Externally twice daily as needed for pain for 90 days 08/11/2023 Not-Taking Calcium Active Probiotic Active Lidocaine 5 % 1 patch remove after 12 hours Externally Once a day PRN Active Menthol (Topical Analgesic) 4 % as directed Externally two times daily for 90 days 11/22/2023 Not-Taking Clobetasol Propionate 0.05 % 1 application Externally Twice a day Active Diclofenac Sodium 1 % as directed Externally twice daily PRN pain for 90 days Not-Taking Gabapentin 400 MG 1 capsule Orally Once a day Active Estradiol 10 MCG 1 tablet Vaginal Two times a Week Active Glimepiride 4 MG 1 tablet with breakfast or the first main meal of the day Orally Twice a day Active Escitalopram Oxalate 10 MG 1 tablet Orally Once a day Active Ozempic (1 MG/DOSE) 4 MG/3ML as directed Subcutaneous Active Digoxin 125 MCG 1 tablet Orally Active Aspirin 81 MG 1 tablet Orally Once a day Active Acetaminophen 325 MG 1 tablet as needed Orally every 4 hrs PRN Active Torsemide 20 MG as directed Orally 40MG in AM an d 20MG in the afternoon Active Ferrous Sulfate 325 (65 Fe) MG 1 tablet Orally Once a day Active Problems Problem Type SNOMED Code ICD Code Onset Dates Problem Status W/U Status Risk Notes Problem 310592633 Type 2 diabetes mellitus with diabetic polyneuropathy (E11.42) Active confirmed Problem 576002726 alf (curre nt) use of insulin (Z79.4) Active confirmed Problem 655166278 Arthritis of leda nt of toe (M19.079) Active confirmed Problem 07466368 Venous insufficiency (I87.2) Active confirmed Vital Signs Heart Rate 83 /min 05/24/2024 Temperature 96.5 degrees Fahrenheit 05/24/2024 Respiratory Rate 16 /min 05/24/2024 Height 5ft 8in in 05/24/2024 Weight 186.8 lbs 05/24/2024 BMI 28.4 kg/m2 05/24/2024 Encounters Encounter Location Date Provider Diagnosis [facility] [address] [address] 08/08/2023 FATOU DICKSON Type 2 diabetes mellitus with diabetic polyneuropathy E11.42 ; Venous insufficiency I87.2 ; Arthritis of joint of toe M19.079 ; Dystrophic nail L60.3 ; Pain in right foot M79.671 and Pain in left foot M79.672 [facility] [address] [address] 11/15/2023 FATOU DICKSON Type 2 diabetes mellitus with diabetic polyneuropathy E11.42 ; Venous insufficiency I87.2 ; Arthritis of joint of toe M19.079 ; Dystrophic nail L60.3 ; Pain in right foot M79.671 and Pain in left foot M79.672 [facility] [address] [address] 02/21/2024 FATOU DICKSON Type 2 diabetes mellitus with diabetic polyneuropathy E11.42 ; Venous insufficiency I87.2 ; Arthritis of joint of toe M19.079 ; Dystrophic nail L60.3 ; Pain in right foot M79.671 and Pain in left foot M79.672 [facility] [address] [address] 05/24/2024 FATOU DICKSON Type 2 diabetes mellitus with diabetic polyneuropathy E11.42 ; Venous insufficiency I87.2 ; Arthritis of joint of toe M19.079 ; Dystrophic nail L60.3 ; Pain in right foot M79.671 and Pain in left foot M79.672 [facility] [address] [address] 08/10/2023 FATOU DICKSON [facility] [address] 08/23/2023 FATOU DICKSON [facility] [address] [address] 11/21/2023 FATOU DICKSON [facility] [address] [address] 05/16/2024 FATOU DICKSON Assessments Encounter Date Diagnosis (ICD Code) Assessment Notes Treatment Notes Treatment Clinical Notes Section Notes 08/08/2023 Type 2 diabetes mellitus with diabetic polyneuropathy (ICD-10 - E11.42) This is an outpatient visit for evaluation and management of a new patient, which required appropriate review of pertinent medical history, review of any previous imaging, review of all previous records, and examination and complex decision-making. Time was 90 minutes spent in review of all these facets including face to face discussion with the patient regarding my findings and in discussion of a current and future treatment plan. Discussed with patient regarding proper glucose control, exercise, and diet. Explained to patient proper shoe gear, and importance of daily foot checks. I reviewed neuropathy and why it occurs [...] We discussed supplementing with a topical therapy. RX EMLA cream to apply to both feet BID PRN pain. I explained there is no cure for neuropathy, only symptom management. 08/08/2023 Venous insufficiency (ICD-10 - I87.2) We discussed the discoloration around the ankle is her varicosities. She does have vasculitis. We discussed she has never had any sort of circulation testing in her legs. I recommended a venous ultrasound. She is in agreement with this plan. Order placed to [facility] per the patient's request. 11/15/2023 Type 2 diabetes mellitus with diabetic polyneuropathy [...] cure for neuropathy, only symptom management. 02/21/2024 Type 2 diabetes mellitus with diabetic [...] cure for neuropathy, only symptom management. 05/24/2024 Type 2 diabetes mellitus with diabetic [...] due to her varicose veins and vasculitis. 11/15/2023 Venous insufficiency (ICD-10 - I87.2) We discussed the discoloration around the ankle is her varicosities. Her ultrasound did come back normal. 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 02/21/2024 Venous insufficiency (ICD-10 - I87.2) We discussed the discoloration around the ankle is her varicosities. Her ultrasound did come back normal. 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 08/08/2023 Arthritis of joint of toe (ICD-10 - M19.079) We discussed her x-ray findings. I explained she does have osteopenia in her feet, likely from the disuse when she was in rehab. We also discussed she does have arthritis in her toes. We discussed she cannot take oral NSAIDs due to her anticoagulation therapy. RX diclofenac gel to apply to the toes BID PRN pain. She is in agreement with this plan. 08/08/2023 Dystrophic nail (ICD-10 - L60.3) Aseptic trimming of toenails x 10 with roll sheeting cutter, pt tolerated well. Discussed with the patient that routine nail care services are only covered by insurance every 60 days. Pt understands that if they would like to return prior to this time frame, they may have to pay out of pocket. Pt to return for another evaluation in 3 months. 02/21/2024 Arthritis of joint of toe (ICD-10 - M19.079) We discussed her x-ray findings. I explained she does have osteopenia in her feet, likely from the disuse when she was in rehab. We also discussed she does have arthritis in her toes. We discussed she cannot take oral NSAIDs due to her anticoagulation therapy. Her insruance will not cover the diclofenac gel. 11/15/2023 Arthritis of joint of toe (ICD-10 - M19.079) We discussed her x-ray findings. I explained she does have osteopenia in her feet, likely from the disuse when she was in rehab. We also discussed she does have arthritis in her toes. We discussed she cannot take oral NSAIDs due to her anticoagulation therapy. RX diclofenac gel to apply to the toes BID PRN pain. She is in agreement with this plan. 05/24/2024 Arthritis of joint of toe (ICD-10 [...] Aseptic trimming of toenails x 10 with roll sheeting cutter, pt tolerated well. Discussed with the patient that routine nail care services are only covered by insurance every 60 days. Pt understands that if they would like to return prior to this time frame, they may have to pay out of pocket. Pt to return for another evaluation in 3 months. 11/15/2023 Dystrophic nail (ICD-10 - L60.3) Aseptic trimming of toenails x 10 with roll sheeting cutter, pt tolerated well. Discussed with the patient that routine nail care services are only covered by insurance every 60 days. Pt understands that if they would like to return prior to this time frame, they may have to pay out of pocket. Pt to return for another evaluation in 3 months. 02/21/2024 Dystrophic nail (ICD-10 - L60.3) Aseptic trimming of toenails x 10 with roll sheeting cutter, pt tolerated well. Discussed with the patient that routine nail care services are only covered by insurance every 60 days. Pt understands that if they would like to return prior to this time frame, they may have to pay out of pocket. Pt to return for another evaluation in 3 months. 08/08/2023 Pain in right foot (ICD-10 - M79.671) 08/08/2023 Pain in left foot (ICD-10 - M79.672) 11/15/2023 Pain in right foot (ICD-10 - M79.671) 02/21/2024 Pain in right foot (ICD-10 - [...] off on its own. 05/24/2024 Pain in right foot (ICD-10 - [...] Pain in left foot (ICD-10 - M79.672) 02/21/2024 Pain in left foot (ICD-10 - M79.672) 11/15/2023 Pain in left foot (ICD-10 - M79.672) Plan Of Treatment Pending Test Test Name Order Date X ray : Foot, left 3v 08/08/2023 X ray : Foot, right 3v 08/08/2023 Next Appt Details Provider Name:FATOU DICKSON, 08/28/2024 01:30:00 PM, [address] [facility] [address], [place], [address], Insurance Providers Payer Name Payer Address Payer Phone Subscriber Number Group Number Insured Name Patient Relationship to Insured Coverage Start Date Coverage End Date [employer] of [place] [address] [place] [phone] [id number] My [place] i Self - [facility] [address] [place] [phone] [id number] My [place] i Self - patient is the insured Medical (General) History Medical History History ICD Code inflammatory arthritis fibromyalgia vasculitis, leukocytoclastic degenerative disease lumbosacral spine SUE + >1:1600 H 2000 allergies IBS esophageal reflux hypertension type II diabetes osteopenia does BMD with Dr. Robles (GIS PHYSICAL SCIENTIST ) obstructive sleep apnea on CPAP asthma gastroesophageal reflux disease (GERD) Hypothyroidism arthritis aortic sclerosis w/out stenosis, LVH on echo fatty liver lichen sclerosis CURTIS 3 meniscus tear left knee- Dr. Stewart gastritis left breast phyllodes tumor CHF severe mitral stenosis by prior echocard iogram deep vein thrombosis left femur fx right hip replacement + COVID 04/2022 COVID vaccinated X 2 (Moderna) Surgical History Surgery Date(Month/Year) tubal ligation left david-urethral excision, right upper labia biopsy, introitus biopsy 05/19/2014 left knee arthroscopic surgery 8 facial lesion removed 10/2018 phyllodes tumor removed- left breast 04/2019 [facility]: repair of mitral, tricuspid and atr ial valves 08/18/2021 right hip fracture repair 08/25/2022 personal history of (healed) traumatic f racture, pain in right hip 03/22/2023 right hip replacement 03/2023 Hospitalization History Reason Date(Month/Year) vaginal delivery (boy) 1975 vaginal delivery (boy) 1973 vaginal delivery (boy) 1971 right hip replacement 03/2023 repair mitral, tricuspid and atrial valv es 08/18/2021 [facility]- fall at home- right hip fx [facility] 4 nights Afib 06/2022 vertebrobasilar TIA 09/22/2021- [facility]- difficulty breathing 11/18/2018-11/19/2018
--- OUTSIDE RECORDS SUMMARY | 2024-07-15 14:31 | XMS_ITS | Data Portability ---
Author Organization [facility] Address [address] [place] [address] Care Team Providers Care Technical Sme Name Role Phone ARIAN TORRES OTHER SHARON GRAHAM OTHER NOAM CARVAJAL OTHER WARD WYMAN OTHER WARD WYMAN Multi Spindle Operator Unavailable [facility] Comb Machine Operator [phone] [facility] Primary Care Provider Assessment Encounter Date Assessment Date Assessment LastModified by Organization Details LastModified Time 12/29/2021 12/29/2021 PCP is Zoë Vogt (who will be leaving). 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 Told of stage II-III in 2018 10/26: pt. says she was told of some cirrhosis. CARDS: STACIA 12/27: s/p mitral valve (pig), ring in tricuspid and cleaned up aortic. B&W. 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 Told of AFib- intermittent but has persisted and planning on cardioversion. T2DM- On glimepiride only. Intolerant to multiple med: Trulicity (nausea). Prandin- (had trouble taking regularly). Metformin (GI), DPP-IV (h/a on Januvia). SGLT2i () Options given RAMEY would be TZD or incretin. Actos not really viable option (hx CHF) and she reported nausea on Trulicity. Although recent improvement in EF may raise option of actos. 10/26: Only on glimepiride- goal was to put her on insulin but some problem and pt. never started (she reports [employer] contacted us but no cases in EMR). 10/26: a1c at goal on just glimepiride. 12/27: On glimepiride only. A1c at goal but she is post valve repair/replaceme nts. Told of AFib but HR is regular and tachy. Says she gets HR over 120 at home too. RAMEY with fibrosis (per Damaris)- 2018. Meds that might RAMEY would be either incretins or TZD (pioglitazone). Couldn't use pioglitazone since she had hx of CHF but seems like she now has better EF. HEART FAILURE: post-op (11/23) but EF reportedly better 2021. 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 Had check-up and told things were OK. 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 Surgery 11/23 - Complex situation due to severe sensitivities to multiple medications and other sx of flares which have no clear etiology. Often says she can't take medication or gets no effect when has only stayed on meds very briefly or not gotten to sufficient doses. Presumptive fibromyalgia difficult to approach in setting of patient who is unwilling to take most medications (or stops them shortly after trying) because of side effects. FOOT PAIN- all the time. Sheets bother her but not gout. feels floor but feels different to her. On gabapentin- 3 pills BID (PCP). Enhanced Provider time spent performing enhanced activities which may include, but are not limited to: reviewing tests, obtaining and/or reviewing patient history; ordering medications, test or procedures; EMR documentation; communication with patient, family, caregiver(s), VNA; pre-visit prep time communication with specialists, ER staff. Time spent: 47 (minutes) [email or web address] Not available 12/29/2021 19:17:21 08/15/2022 08/15/2022 PCP is Edison Hassan); thinks Ynes is supervising MD. GI: Damaris for RAMEY with fibrosis as well as gastritis/coliti s. Told of stage II-III in 2018 10/26: pt. says she was told of some cirrhosis. CARDS: STACIA 12/27: s/p mitral valve (pig), ring in tricuspid and cleaned up aortic. B&W. 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 Told of AFib- intermittent but has persisted and planning on cardioversion. 08/28: Deterioration in care- on chronic O2 with chronic AFib. T2DM- On glimepiride only. Intolerant to multiple med: Trulicity (nausea). Prandin- (had trouble taking regularly). Metformin (GI), DPP-IV (h/a on Januvia). SGLT2i (). Options given RAMEY would be TZD or incretin. Actos not really viable option (hx CHF) and she reported nausea on Trulicity. Although recent improvement in EF may raise option of actos. 10/26: Only on glimepiride- goal was to put her on insulin but some problem and pt. never started (she reports [employer] contacted us but no cases in EMR). 10/26: a1c at goal on just glimepiride. 12/27: On glimepiride only. A1c at goal but she is post valve repair/replaceme nts. Told of AFib but HR is regular and tachy. Says she gets HR over 120 at home too. 08/28: High a1c. Thinks Trulicity nausea improved but never tried higher dose. RAMEY with fibrosis (per Damaris)- 2018. Meds that might RAMEY would be either incretins or TZD (pioglitazone). Couldn't use pioglitazone given new issue of CHF. HEART FAILURE: post-op (11/23) but EF reportedly better 2021. 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 Had check-up and told things were OK. 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 Surgery 11/23 - Complex situation due to severe sensitivities to multiple medications and other sx of flares which have no clear etiology. Often says she can't take medication or gets no effect when has only stayed on meds very briefly or not gotten to sufficient doses. Presumptive fibromyalgia difficult to approach in setting of patient who is unwilling to take most medications (or stops them shortly after trying) because of side effects. FOOT PAIN- all the time. Sheets bother her but not gout. feels floor but feels different to her. On gabapentin- 3 pills BID (PCP). Enhanced Provider time spent performing enhanced activities which may include, but are not limited to: reviewing tests, obtaining and/or reviewing patient history; ordering medications, test or procedures; EMR documentation; communication with patient, family, caregiver(s), VNA; pre-visit prep time communication with specialists, ER staff. Time spent: 55 (minutes) 08/28: - Increase T4 25 to 50 (very tired, heart failure) - Try back on trulicity- try higher dose in one month if tolerates. - Will write for test strips BID since on GROVER. [email or web address] Not available 08/15/2022 15:03:26 07/04/2023 07/04/2023 PCP is Edison Hassan); thinks Ynes is supervising MD. GI: Damaris for RAMEY with fibrosis as well as gastritis/coliti s. Told of stage II-III in 10/26: pt. says she was told of some cirrhosis. CARDS: STACIA 12/27: s/p mitral valve (pig), ring in tricuspid and cleaned up aortic. B&W. 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 Told of AFib- intermittent but has persisted and planning on cardioversion. 08/28: Deterioration in care- on chronic O2 with chronic AFib. 07/01: Hip fx with pin but complications arose and had to have replacement. Cardiac status seems more stable. Not on O2 at visit. 1) T2DM- On glimepiride only. Intolerant to multiple med: Trulicity (nausea). Prandin- (had trouble taking regularly). Metformin (GI), DPP-IV (h/a on Januvia). SGLT2i (). Preferred options given RAMEY would be TZD or incretin. Actos not viable option (hx CHF) and she reported nausea on Trulicity. But she recognizes had other things going on. 10/26: Only on glimepiride- goal was to put her on insulin but some problem and pt. never started (she reports [employer] contacted us but no cases in EMR). 10/26: a1c at goal on just glimepiride. 12/27: On glimepiride only. A1c at goal but she is post valve repair/replaceme nts. Told of AFib but HR is regular and tachy. Says she gets HR over 120 at home too. 08/28: High a1c. Thinks Trulicity nausea improved but never tried higher dose. - Willing to retry Trulicity (low dose) 07/01. 2) RAMEY with fibrosis (per Damaris)- 2017. Meds that might RAMEY would be either incretins or TZD (pioglitazone). Couldn't use pioglitazone given hx of CHF. 3) HEART FAILURE: post-op (11/23) but EF reportedly better 2021. Can't tolerate SGLT2i. 4) HYPOTHYROID: On small dose replacement (25) 08/28: TSH up- can try increasing dose to 50 07/01: update labs on 50mcg. 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 Had check-up and told things were OK. 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 Surgery 11/23 - Complex situation due to severe sensitivities to multiple medications and other sx of flares which have no clear etiology. Often says she can't take medication or gets no effect when has only stayed on meds very briefly or not gotten to sufficient doses. Presumptive fibromyalgia difficult to approach in setting of patient who is unwilling to take most medications (or stops them shortly after trying) because of side effects. FOOT PAIN- all the time. Sheets bother her but not gout. feels floor but feels different to her. On gabapentin- 3 pills BID (PCP). Enhanced Provider time spent performing enhanced activities which may include, but are not limited to: reviewing tests, obtaining and/or reviewing patient history; ordering medications, test or procedures; EMR documentation; communication with patient, family, caregiver(s), VNA; pre-visit prep time communication with specialists, ER staff. Time spent: 39 (minutes) 07/01 08/28: - Increase T4 25 to 50 (very tired, heart failure) - Try back on trulicity- try higher dose in one month if tolerates. - Will write for test strips BID since on GROVER. 07/01: re-try trulicity (believes she still has some at home). not many other choices. if values remain up, may need insulin. can't tolerate statins but panel is at goal (non-HDL too). [email or web address] Not available 07/04/2023 18:24:43 01/29/2024 01/29/2024 PCP is Edison Hassan); thinks Ynes is supervising MD. GI: Damaris for RAMEY with fibrosis as well as gastritis/coliti s. Told of stage II-III in 10/26: pt. says she was told of some cirrhosis. CARDS: STACIA 12/27: s/p mitral valve (pig), ring in tricuspid and cleaned up aortic. B&W. 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 Told of AFib- intermittent but has persisted and planning on cardioversion. 08/28: Deterioration in care- on chronic O2 with chronic AFib. 07/01: Hip fx with pin but complications arose and had to have replacement. Cardiac status seems more stable. Not on O2 at visit. 1) T2DM- On glimepiride (ozempic added in 2023). Intolerant to multiple med: Trulicity (nausea). Prandin- (had trouble taking regularly). Metformin (GI), DPP-IV (h/a on Januvia). SGLT2i (). Preferred options given RAMEY would be TZD or incretin. Actos not viable option (hx CHF) and she reported nausea on Trulicity. But she recognizes had other things going on. 10/26: Only on glimepiride- goal was to put her on insulin but some problem and pt. never started (she reports [employer] contacted us but no cases in EMR). 10/26: a1c at goal on just glimepiride. 12/27: On glimepiride only. A1c at goal but she is post valve repair/replaceme nts. Told of AFib but HR is regular and tachy. Says she gets HR over 120 at home too. 08/28: High a1c. Thinks Trulicity nausea improved but never tried higher dose. - Willing to retry Trulicity (low dose) 07/01. 01/29: tolerating low dose ozempic. Increase dose. f/u ENDO RN. 2) RAMEY with fibrosis (per Damaris)- 2017. Meds that might RAMEY would be either incretins or TZD (pioglitazone). Couldn't use pioglitazone given hx of CHF. 01/29: Continue with Ozempic- try and increase dose. 3) HEART FAILURE: post-op (11/23) but EF reportedly better 2021. Can't tolerate SGLT2i. 4) HYPOTHYROID: On small dose replacement (25) 08/28: TSH up- can try increasing dose to 50 07/01: update labs on 50mcg. 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 Had check-up and told things were OK. 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 Surgery 11/23 - Complex situation due to severe sensitivities to multiple medications and other sx of flares which have no clear etiology. Often says she can't take medication or gets no effect when has only stayed on meds very briefly or not gotten to sufficient doses. Presumptive fibromyalgia difficult to approach in setting of patient who is unwilling to take most medications (or stops them shortly after trying) because of side effects. FOOT PAIN- all the time. Sheets bother her but not gout. feels floor but feels different to her. On gabapentin- 3 pills BID (PCP). Pt reports combination of arthritis + Fibromyalgia + small amount of neuropathy Enhanced Provider time spent performing enhanced activities which may include, but are not limited to: reviewing tests, obtaining and/or reviewing patient history; ordering medications, test or procedures; EMR documentation; communication with patient, family, caregiver(s), VNA; pre-visit prep time communication with specialists, ER staff. Time spent: 42 (minutes) 07/01 08/28: - Increase T4 25 to 50 (very tired, heart failure) - Try back on trulicity- try higher dose in one month if tolerates. - Will write for test strips BID since on GROVER. 07/01: re-try trulicity (believes she still has some at home). not many other choices. if values remain up, may need insulin. can't tolerate statins but panel is at goal (non-HDL too). 01/29: increase ozempic. update labs. [email or web address] Not available 01/29/2024 18:40:13 Plan of Treatment Reminders Order Date Submit Date Provider Last Modified By Organization Details Last Modified Time Details Appointments Follow Up, 40 2024 11:20A M Ward Wyman MD Not available Not available Not available Lab HbA1c (hemog lobin A1c), blood 2023 024 [facility] - Phlebotomy, [address] [facility] [place], [address], 02/09/2024 21:27:01 CMP, serum or plasma 2023 024 [facility] - Phlebotomy, [address] [place], [address], 02/09/2024 21:26:59 microa lbumin /creat inine, ratio panel, urine 2023 024 [email or web address] - Phlebotomy, [address] [place], [address], 01/30/2024 09:04:26 CMP, serum or plasma 2023 025 [facility] - Phlebotomy, [address] [facility] [place], [address], 02/09/2024 21:26:58 HbA1c (hemog lobin A1c), blood 2023 024 [facility] - Phlebotomy, [address] [facility] [place], [address], 07/05/2024 06:07:42 HbA1c (hemog lobin A1c), blood 2024 025 [facility] - Phlebotomy, [address] [facility] [place], [address], 07/05/2024 06:07:42 lipid panel, serum 2023 024 [facility] - Phlebotomy, [address] [facility], [place], [address], 02/09/2024 21:26:59 lipid panel, serum 2023 025 [facility] - Phlebotomy, [address] [place], [address], 02/09/2024 21:26:59 TSH, serum or plasma 2023 024 [facility] - Phlebotomy, [address] [place], [address], 01/30/2024 09:04:25 T4, free, serum 2023 024 [facility] - Phlebotomy, [address] [place], [address], 01/30/2024 09:04:25 HbA1c (hemog lobin A1c), blood 2023 024 [facility] - Phlebotomy, [address] [place], [address], 08/02/2023 14:07:03 CMP, serum or plasma 2023 024 [facility] - Phlebotomy, [address] [place], [address], 08/02/2023 14:06:54 HbA1c (hemog lobin A1c), blood 2023 024 [facility] - Phlebotomy, [address] [place], [address], 08/02/2023 14:07:03 lipid panel, serum 2023 024 [facility] - Phlebotomy, [address] [place], [address], 08/02/2023 14:06:59 lipid panel, serum 2023 024 [facility] - Phlebotomy, [address] [place], [address], 08/02/2023 14:06:59 T4, free, serum 2023 024 [facility] - Phlebotomy, [address], [place], [address], 08/02/2023 14:07:05 HbA1c (hemog lobin A1c), blood 2021 022 [facility], [address], [place], [address], 07/22/2022 16:01:19 microa lbumin , urine 2021 022 [facility], [address], [place], [address], 07/22/2022 15:51:51 lipid panel, serum 2021 022 [facility], [address], [place], [address], 07/22/2022 14:53:50 CMP, serum or plasma 2021 022 [facility], [address], [place], [address], 07/22/2022 14:53:48 lipid panel, serum 2022 023 [facility], [address], [place], [address], 05/03/2023 21:35:24 lipid panel, serum 2022 023 [facility], [address], [place], [address], 05/10/2023 15:13:31 TSH, serum or plasma 2021 022 [facility], [address], [place], [address], 07/22/2022 14:56:50 T4, free, serum 2021 022 [facility], [address], [place], [address], 07/22/2022 14:56:48 Referral None record ed. Procedures None record ed. Surgeries None record ed. Imaging bone densit y - Please update and compar e. Please provid e t-scor es for all sites includ rabia bradyYesy 2022 023 [facility] [address], [place], [address], 12/23/2022 08:04:14 Medication Orders Ozempi c 1 mg/dos e (4 mg/3 mL) subcut aneous pen inject or 2023 024 [email or web address] n [facility] [place], [address], 03/26/2024 13:34:15 Ozempi c 0.25 mg or 0.5 mg (2 mg/1.5 mL) subcut aneous pen inject or 2023 024 [facility] [place], [address], 02/14/2024 15:02:07 OneTou [facility] Verio test strips 2023 024 [id number], [address] [place] [address], [id number], 07/04/2023 15:29:22 levoth yroxin e 50 mcg tablet 2023 024 [facility] [place], [address], 07/04/2023 15:29:18 Trulic ity 0.75 mg/0.5 mL subcut aneous pen inject or 2022 023 [facility] [place], [address], 10/09/2023 09:46:13 Trulic ity 1.5 mg/0.5 mL subcut aneous pen inject or 2022 023 [facility], [facility], [place], [address], 01/29/2024 15:12:11 OneTou ch Verio test strips 2022 023 [facility], [place], [address], 08/16/2022 11:05:41 levoth yroxin e 50 mcg tablet 2022 023 [facility], [facility] [place], [address], 08/15/2022 15:07:07 OneTou ch Verio test strips 2021 022 [facility], [address] [place] [address], [place], [address], 12/29/2021 19:18:30 Patient TargetsNo targets recorded. Patient Instructions Encounter Date Encounter Id Patient Instructions Last Modified By Organization Details Last Modified Time 12/29/2021 [id number] - Get labs done as ordered every 3 months. - Continue to monitor your blood sugars as directed- try to check before breakfast and before dinner. - Follow a healthy diet. Consider looking at anti-inflammator y diet. - Try and be as physically active as you can. Walking around your yard is a really good option. - Stay on 25 mcg generic thyroid hormone - Continue taking thyroid hormone every day away from other food and especially from other minerals like calcium (dairy), iron, magnesium, etc. - Contact office if any symptoms of low thyroid (excess fatigue, unexplained weight gain, feeling much more cold than usual, constipation, very dry skin) or excess thyroid (heart racing, unexplained weight loss, feeling jittery/nervous/ anxious, change in frequency of moving bowels, tremors, or insomnia) [email or web address] Not available 12/29/2021 19:16:53 6+ months/60 minutes Not available 12/28/2021 10:24:07 08/15/2022 [id number] - Get labs done as ordered every 3 months. - Continue to monitor your blood sugars as directed- try to check before breakfast and before dinner. - Follow a healthy diet. Consider looking at anti-inflammator y diet. - Try and be as physically active as you can. Walking around your yard is a really good option. - Increase thyroid dose to 50mcg daily. - Continue taking thyroid hormone every day away from other food and especially from other minerals like calcium (dairy), iron, magnesium, etc. - Contact office if any symptoms of low thyroid (excess fatigue, unexplained weight gain, feeling much more cold than usual, constipation, very dry skin) or excess thyroid (heart racing, unexplained weight loss, feeling jittery/nervous/ anxious, change in frequency of moving bowels, tremors, or insomnia) TRULICITY: - Start by using the 0.75mg dose pen weekly for four weeks. This is often just a starting dose to get used to the medication, and most patients will need to increase the dose to lower blood sugars to goal. - Try to take the medication on the same day each week, but you can change the day of the dose as long as it has been at least three days since your last dose. - If you miss a dose, take the missed dose as soon as possible within 4 days of the due date. If it has been more than four days, skip the missed dose and take your next dose on schedule in three days. Do not take two doses of Trulicity within three days of each other. - If not at goal in four weeks, your provider will increase the dose to 1.5mg weekly. This will be a new prescription in a separate pen. Injection: - Store the pens you are not using in the refrigerator. On the day of your injection, take one pen out to allow the medication to come to room temperature. EACH PEN HAS ONE DOSE. - You can inject the medication in either the abdominal fat, upper arm or the outer thigh. Wipe the area you choose with an alcohol wipe before injection. Rotate the injection site each week. - Remove the cap from the pen. The needle is already in the pen. You can put the cap in your regular trash. - Twist the top of the pen to the green unlock setting. - Angle the pen to 90 degrees from the injection site, hold tightly against the skin and press the medication release button. You will hear a loud click, and then a second softer click in another 5-10 seconds. Hold pressure this entire time. - Place the entire pen into a certified sharps container. You can receive sharps containers from your insurance company or most [facility] have them available for free. Side effects/Contrain dications: - Common initial side effects are abdominal upset with nausea, diarrhea, or constipation, and indigestion. These often improve with each injection as your body adjusts to the medication. Eat small meals, stick to bland foods, and avoid greasy or sweet foods while the symptoms last. If the symptoms are severe or not improving, contact your provider. [email or web address] Not available 08/15/2022 14:56:00 6+ months/60 minutes Not available 08/15/2022 08:37:49 07/04/2023 [id number] - Get labs done as ordered every 3 months - Re-try Trulicity at low dose. Try and continue weekly x 4 weeks. If not having side effects, let me know so we can try increasing the dose slowly - Continue to monitor your blood sugars as directed - Follow a healthy diet - Try and be as physically active as you can - Continue taking thyroid hormone every day away from other food and especially from other minerals like calcium (dairy), iron, magnesium, etc. - Contact office if any symptoms of low thyroid (excess fatigue, unexplained weight gain, feeling much more cold than usual, constipation, very dry skin) or excess thyroid (heart racing, unexplained weight loss, feeling jittery/nervous/ anxious, change in frequency of moving bowels, tremors, or insomnia) [email or web address] Not available 07/04/2023 18:28:25 6 months/ 40 min SAMANTA RN in 3 months. [email or web address] Not available 07/04/2023 18:28:35 01/29/2024 [id number] - Get labs done as ordered every 3 months - Increase Ozempic to 0.5 weekly. Try and continue weekly x 4 weeks. Come back and see nurse in 6-8 weeks. - Continue to monitor your blood sugars as directed - Follow a healthy diet - Try and be as physically active as you can - Continue taking thyroid hormone every day away from other food and especially from other minerals like calcium (dairy), iron, magnesium, etc. - Contact office if any symptoms of low thyroid (excess fatigue, unexplained weight gain, feeling much more cold than usual, constipation, very dry skin) or excess thyroid (heart racing, unexplained weight loss, feeling jittery/nervous/ anxious, change in frequency of moving bowels, tremors, or insomnia) [email or web address] Not available 01/29/2024 18:42:35 6 months/ 40 min ENDO RN in 6-8 weeks. [email or web address] Not available 01/29/2024 16:07:08 Reason for Referral None Reported. Results Created Date Observation Date Name Description Value Unit Range Abnormal Flag Note LastModifiedBy Organization Detail LastModifiedTime 07/23/1907/22/2022 COMPR EHENS KSENIA METAB OLIC PANL glucose 209 mg/dL (70-99 ) high Fasti ng Not Available [facility] (Centralized Electronic Ordering - All Locations) Patient Can Go To The Location Of Their Choice, 07/22/2022 14:53:48 07/23/1907/22/2022 COMPR EHENS KSENIA METAB OLIC PANL BUN 11 mg/dL (8-23) Not Available [facility] (Centralized Electronic Ordering - All Locations) Patient Can Go To The Location Of Their Choice, 07/22/2022 14:53:48 07/23/1907/22/2022 COMPR EHENS KSENIA METAB OLIC PANL creatinine 1.1 mg/dL (0.5-1 .0) high Not Available [facility] (Centralized Electronic Ordering - All Locations) Patient Can Go To The Location Of Their Choice, 07/22/2022 14:53:48 07/23/1907/22/2022 COMPR EHENS KSENIA METAB OLIC PANL sodium 137 mmol/ L (133-1 45) Not Available [facility] (Centralized Electronic Ordering - All Locations) Patient Can Go To The Location Of Their Choice, 07/22/2022 14:53:48 07/23/1907/22/2022 COMPR EHENS KSENIA METAB OLIC PANL potassium 4.1 mmol/ L (3.6-5 .2) Not Available [facility] (Centralized Electronic Ordering - All Locations) Patient Can Go To The Location Of Their Choice, 07/22/2022 14:53:48 07/23/1907/22/2022 COMPR EHENS KSENIA METAB OLIC PANL chloride 97 mmol/ L (98-10 7) low Not Available [facility] (Centralized Electronic Ordering - All Locations) Patient Can Go To The Location Of Their Choice, 07/22/2022 14:53:48 07/23/1907/22/2022 COMPR EHENS KSENIA METAB OLIC PANL bicarbonate 33 mmol/ L (22-29 ) high Not Available [facility] (Centralized Electronic Ordering - All Locations) Patient Can Go To The Location Of Their Choice, 07/22/2022 14:53:48 07/23/1907/22/2022 COMPR EHENS KSENIA METAB OLIC PANL anion gap 7 (4-17) Not Available [facility] (Centralized Electronic Ordering - All Locations) Patient Can Go To The Location Of Their Choice, 07/22/2022 14:53:48 07/23/1907/22/2022 COMPR EHENS KSENIA METAB OLIC PANL albumin 4.0 gm/dL (3.4-4 .8) Not Available [facility] (Centralized Electronic Ordering - All Locations) Patient Can Go To The Location Of Their Choice, 07/22/2022 14:53:48 07/23/1907/22/2022 COMPR EHENS KSENIA METAB OLIC PANL calcium 9.2 mg/dL (8.6-1 0.5) Not Available [facility] (Centralized Electronic Ordering - All Locations) Patient Can Go To The Location Of Their Choice, 07/22/2022 14:53:48 07/23/1907/22/2022 COMPR EHENS KSENIA METAB OLIC PANL bilirubin,to julienne 0.5 mg/dL (0-1.2 ) Not Available [facility] (Centralized Electronic Ordering - All Locations) Patient Can Go To The Location Of Their Choice, 07/22/2022 14:53:48 07/23/1907/22/2022 COMPR EHENS KSENIA METAB OLIC PANL total protein 6.6 gm/dL (6.2-8 .2) Not Available [facility] (Centralized Electronic Ordering - All Locations) Patient Can Go To The Location Of Their Choice, 07/22/2022 14:53:48 07/23/1907/22/2022 COMPR EHENS KSENIA METAB OLIC PANL Ag ratio 1.5 Not Available [facility] (Centralized Electronic Ordering - All Locations) Patient Can Go To The Location Of Their Choice, 07/22/2022 14:53:48 07/23/1907/22/2022 COMPR EHENS KSENIA METAB OLIC PANL AST 28 U/L (0-32) Not Available [facility] (Centralized Electronic Ordering - All Locations) Patient Can Go To The Location Of Their Choice, 07/22/2022 14:53:48 07/23/1907/22/2022 COMPR EHENS KSENIA METAB OLIC PANL alk phos 88 U/L (35-10 4) Not Available [facility] (Centralized Electronic Ordering - All Locations) Patient Can Go To The Location Of Their Choice, 07/22/2022 14:53:48 07/23/1907/22/2022 COMPR EHENS KSENIA METAB OLIC PANL ALT 20 U/L (0-33) Not Available [facility] (Centralized Electronic Ordering - All Locations) Patient Can Go To The Location Of Their Choice, 07/22/2022 14:53:48 07/23/1907/22/2022 COMPR EHENS KSENIA METAB OLIC PANL estimated GFR creatinine 54 mL/mi n/1.7 3_M2 Creat inine based estim ated glome rular filtr ation (eGFR ) in adult s is calcu lated using the Natio nal Kidne y Found ation recom americo d 2020 CKD-E PI equat ion. Estim ates GFR from serum creat inine , age and sex. Not Available [facility] (Centralized Electronic Ordering - All Locations) Patient Can Go To The Location Of Their Choice, 07/22/2022 14:53:48 07/23/1907/22/2022 LIPID PANEL cholesterol, total 143 mg/dL (<200) Not Available [facility] ([facility] Ordering - All Locations) Patient Can Go To The Location Of Their Choice, 07/22/2022 14:53:50 07/23/1907/22/2022 LIPID PANEL triglyceride 93 mg/dL (<150) Fasti ng Not Available [facility] (Centralized Electronic Ordering - All Locations) Patient Can Go To The Location Of Their Choice, 07/22/2022 14:53:50 07/23/1907/22/2022 LIPID PANEL HDL chol 46 mg/dL (>39) Not Available [facility] (Centralized Electronic Ordering - All Locations) Patient Can Go To The Location Of Their Choice, 07/22/2022 14:53:50 07/23/1907/22/2022 LIPID PANEL LDL cholesterol, calculated 78 mg/dL (0-130 ) Not Available [facility] (Centralized Electronic Ordering - All Locations) Patient Can Go To The Location Of Their Choice, 07/22/2022 14:53:50 07/23/1907/22/2022 LIPID PANEL non HDL cholesterol (calc) 97 mg/dL (<160) Not Available [facility] ([facility] Ordering - All Locations) Patient Can Go To The Location Of Their Choice, 07/22/2022 14:53:50 07/23/1907/22/2022 FREE T4 free T4 1.38 NG/dL (0.70- 1.80) Not Available [facility] (Centralized Electronic Ordering - All Locations) Patient Can Go To The Location Of Their Choice, 07/22/2022 14:56:48 07/23/1907/22/2022 TSH TSH 8.33 uIU/m L (0.4-4 .2) high Not Available [facility] (Centralized Electronic Ordering - All Locations) Patient Can Go To The Location Of Their Choice, 07/22/2022 14:56:50 07/23/1907/22/2022 URINA RY MICRO ALBUM IN micro-albumi n 108.4 mg/L (<20) high The urine micro album in test is desig loy to monit or renal funct ion. When scree anselmo for Bence Bob prote inuri a, urine elect ropho resis is recom americo d. Not Available [facility] (Centralized Electronic Ordering - All Locations) Patient Can Go To The Location Of Their Choice, 07/22/2022 15:51:51 07/23/1907/22/2022 URINA RY MICRO ALBUM IN malb/creat ratio 78.7 mg/gm (0-20) high Not Available [facility] ([facility] Ordering - All Locations) Patient Can Go To The Location Of Their Choice, 07/22/2022 15:51:51 07/23/1907/22/2022 URINA RY MICRO ALBUM IN urine creat for micro albumin 137.7 mg/dL Not Available [facility] ([facility] Ordering - All Locations) Patient Can Go To The Location Of Their Choice, 07/22/2022 15:51:51 07/23/1907/22/2022 HEMOG LOBIN A1C hemoglobin A1C 8.5 % (4.0-5 .6) high MONIT ORING : In known diabe tic patie nts, hemog lobin A1c targe ts shoul d be discu ssed with healt h care provi padma. DIAGN OSTIC USE: The Ameri can Diabe azar Assoc iatio n (ADA) and the World Healt h Organ izati on (WHO) recom mend the use of HbA1c to diagn ose diabe azar using a thres hold of 6.5%. Patie nts who have an HbA1c betwe en 5.7% and 6.4% are consi dered at incre ased risk for devel oping diabe azar in the futur eYesy CAUTI ON: False ly low HbA1c resul ts may be obser birdie in patie nts with hemol ytic anemi a, homoz ygous forms of abnor mal hemog lobin (e.g. SS, CC, SC), pregn dhaval, recen t blood loss or hemog lobin F great er than 7%. Fruct osami ne may be used as an alter kendell test in these cases . REFER ENCE: ADA: Stand ards of Medic al Care in Diabe azar 2019, The Journ al of Clini sandeep and Appli ed Resea rch and Educa tion Volum e 43, Suppl ement 1 Not Available [facility] (Centralized Electronic Ordering - All Locations) Patient Can Go To The Location Of Their Choice, 07/22/2023 16:01:19 05/03/20 23 05/03/2023 BASIC METAB OLIC PANEL glucose 173 mg/dL (70-99 ) high Not Available [facility] (Centralized Electronic Ordering - All Locations) Patient Can Go To The Location Of Their Choice, [id number] 05/03/2023 21:35:22 05/03/20 23 05/03/2023 BASIC METAB OLIC PANEL BUN 7 mg/dL (8-23) low Not Available [facility] (Centralized Electronic Ordering - All Locations) Patient Can Go To The Location Of Their Choice, [id number] 05/03/2023 21:35:22 05/03/20 23 05/03/2023 BASIC METAB OLIC PANEL creatinine 0.8 mg/dL (0.5-1 .0) Not Available [facility] (Centralized Electronic Ordering - All Locations) Patient Can Go To The Location Of Their Choice, [id number] 05/03/2023 21:35:22 05/03/2005/03/2023 BASIC METAB OLIC PANEL sodium 142 mmol/ L (133-1 45) Not Available [facility] (Centralized Electronic Ordering - All Locations) Patient Can Go To The Location Of Their Choice, [id number] 05/03/2023 21:35:22 05/03/20 23 05/03/2023 BASIC METAB OLIC PANEL potassium 3.1 mmol/ L (3.6-5 .2) low Not Available [facility] ([facility]ized Electronic Ordering - All Locations) Patient Can Go To The Location Of Their Choice, [id number] 05/03/2023 21:35:22 05/03/20 23 05/03/2023 BASIC METAB OLIC PANEL chloride 97 mmol/ L (98-10 7) low Not Available [facility] ([facility]ized Electronic Ordering - All Locations) Patient Can Go To The Location Of Their Choice, 05/03/2023 21:35:22 05/03/20 23 05/03/2023 BASIC METAB OLIC PANEL bicarbonate 35 mmol/ L (22-29 ) high Not Available [facility] ([facility] Electronic Ordering - All Locations) Patient Can Go To The Location Of Their Choice, [id number] 05/03/2023 21:35:22 05/03/20 23 05/03/2023 BASIC METAB OLIC PANEL anion gap 10 (4-17) Not Available [facility] (Centralized Electronic Ordering - All Locations) Patient Can Go To The Location Of Their Choice, 05/03/2023 21:35:22 05/03/2005/03/2023 BASIC METAB OLIC PANEL calcium 9.7 mg/dL (8.6-1 0.5) Not Available [facility] ([facility]ized Electronic Ordering - All Locations) Patient Can Go To The Location Of Their Choice, 05/03/2023 21:35:22 05/03/2005/03/2023 BASIC METAB OLIC PANEL estimated GFR creatinine 74 mL/mi n/1.7 3_M2 Creat inine based estim ated glome rular filtr ation (eGFR ) in adult s is calcu lated using the Natio nal Kidne y Found ation recom americo d 2020 CKD-E PI equat ion. Estim ates GFR from serum creat inine , age and sex. Not Available [facility] (Centralized Electronic Ordering - All Locations) Patient Can Go To The Location Of Their Choice, 05/03/2023 21:35:22 05/03/2005/03/2023 IRON & TIBC iron 33 mcg/d L (30-16 0) Not Available [facility] ([facility]ized Electronic Ordering - All Locations) Patient Can Go To The Location Of Their Choice, 05/03/2023 21:35:23 05/03/20 23 05/03/2023 IRON & TIBC unsaturated iron binding capac 313 mcg/d L (110-3 70) Not Available [facility] ([facility]ized Electronic Ordering - All Locations) Patient Can Go To The Location Of Their Choice, 05/03/2023 21:35:23 05/03/2005/03/2023 IRON & TIBC est T. iron bind capacity 346 mcg/d L (140-5 30) Not Available [facility] ([facility] Electronic Ordering - All Locations) Patient Can Go To The Location Of Their Choice, 05/03/2023 21:35:23 05/03/20 23 05/03/2023 IRON & TIBC % iron saturation 10 % (20-55 ) low Not Available [facility] ([facility] Electronic Ordering - All Locations) Patient Can Go To The Location Of Their Choice, 05/03/2023 21:35:23 05/03/20 23 05/03/2023 LIPID PANEL cholesterol, total 144 mg/dL (<200) Not Available [facility] ([facility] Order[facility] - All Locations) Patient Can Go To The Location Of Their Choice, [id number] 05/03/2023 21:35:24 05/03/20 23 05/03/2023 LIPID PANEL triglyceride 113 mg/dL (<150) Not Available [facility] ([facility] Order[facility] - All Locations) Patient Can Go To The Location Of Their Choice, 05/03/2023 21:35:24 05/03/20 23 05/03/2023 LIPID PANEL HDL chol 44 mg/dL (>39) Not Available [facility] ([facility] Ordering - All Locations) Patient Can Go To The Location Of Their Choice, [id number] 05/03/2023 21:35:24 05/03/20 23 05/03/2023 LIPID PANEL LDL cholesterol, calculated 77 mg/dL (0-130 ) Not Available [facility] ([facility] Ordering - All Locations) Patient Can Go To The Location Of Their Choice, [id number] 05/03/2023 21:35:24 05/03/20 23 05/03/2023 LIPID PANEL non HDL cholesterol (calc) 100 mg/dL (<160) Not Available [facility] ([facility] Ordering - All Locations) Patient Can Go To The Location Of Their Choice, [id number] 05/03/2023 21:35:24 05/03/20 23 05/03/2023 MAGNE SIUM magnesium 2.1 mg/dL (1.6-2 .3) Not Available [facility] ([facility] Ordering - All Locations) Patient Can Go To The Location Of Their Choice, [id number] 05/03/2023 21:35:25 08/01/19 24 08/02/2023 COMP. METAB OLIC PANEL (14) glucose 245 mg/dL 70-99 above high normal Not Available [facility] ([facility]) [address] [facility], [place], [address], 08/02/2023 14:06:54 08/01/19 24 08/02/2023 COMP. METAB OLIC PANEL (14) BUN 11 mg/dL 8-27 normal Not Available [facility] ([facility]) [address] [facility], [place], [address], 08/02/2023 14:06:54 08/01/19 24 08/02/2023 COMP. METAB OLIC PANEL (14) creatinine 0.94 mg/dL 0.57-1 .00 normal Not Available [facility] ([facility]) [address] [place], [address], 08/02/2023 14:06:54 08/01/19 24 08/02/2023 COMP. METAB OLIC PANEL (14) eGFR 63 mL/mi n/1.7 3 >59 Not Available [facility] ([facility]) [address] [place], [address], 08/02/2023 14:06:54 08/01/19 24 08/02/2023 COMP. METAB OLIC PANEL (14) BUN/creatini ne ratio 12 12-28 normal Not Available [facility] ([facility]) [address] [facility], [place], [address], 08/02/2023 14:06:54 08/01/19 24 08/02/2023 COMP. METAB OLIC PANEL (14) sodium 139 mmol/ L 134-14 4 normal Not Available [facility] ([facility]) [address] [place], [address], 08/02/2023 14:06:54 08/01/19 24 08/02/2023 COMP. METAB OLIC PANEL (14) potassium 4.3 mmol/ L 3.5-5. 2 normal Not Available [facility] ([facility]) [address] [place], [address], 08/02/2023 14:06:54 08/01/19 24 08/02/2023 COMP. METAB OLIC PANEL (14) chloride 98 mmol/ L 96-106 normal Not Available [facility] ([facility]) [address] [place], [address], 08/02/2023 14:06:54 08/01/19 24 08/02/2023 COMP. METAB OLIC PANEL (14) carbon dioxide, total 25 mmol/ L 20-29 normal Not Available [facility] ([facility]) [address] [place], [address], 08/02/2023 14:06:54 08/01/19 24 08/02/2023 COMP. METAB OLIC PANEL (14) calcium 9.3 mg/dL 8.7-10 .3 normal Not Available [facility] ([facility]) [address] [place], [address], 08/02/2023 14:06:54 08/01/19 24 08/02/2023 COMP. METAB OLIC PANEL (14) protein, total 6.7 g/dL 6.0-8. 5 normal Not Available [facility] ([facility]) [address] [place], [address], 08/02/2023 14:06:54 08/01/19 24 08/02/2023 COMP. METAB OLIC PANEL (14) albumin 3.8 g/dL 3.8-4. 8 normal Not Available [facility] ([facility]) [address] [place], [address], 08/02/2023 14:06:54 08/01/19 24 08/02/2023 COMP. METAB OLIC PANEL (14) globulin, total 2.9 g/dL 1.5-4. 5 Not Available [facility] ([facility]) [address] [place], [address], 08/02/2023 14:06:54 08/01/19 24 08/02/2023 COMP. METAB OLIC PANEL (14) A/G ratio 1.3 1.2-2. 2 Not Available [facility] ([facility]) [address] [place], [address], 08/02/2023 14:06:54 08/01/19 24 08/02/2023 COMP. METAB OLIC PANEL (14) bilirubin, total 0.3 mg/dL 0.0-1. 2 normal Not Available [facility] ([facility]) [address] [place], [address], 08/02/2023 14:06:54 08/01/19 24 08/02/2023 COMP. METAB OLIC PANEL (14) alkaline phosphatase 93 IU/L 44-121 normal Not Available [facility] ([facility]) [address] [place], [address], 08/02/2023 14:06:54 08/01/19 24 08/02/2023 COMP. METAB OLIC PANEL (14) AST (SGOT) 59 IU/L 0-40 above high normal Not Available [facility] ([facility]) [address] [place], [address], 08/02/2023 14:06:54 08/01/19 24 08/02/2023 COMP. METAB OLIC PANEL (14) ALT (SGPT) 41 IU/L 0-32 above high normal Not Available [facility] ([facility]) [address] [place], [address], 08/02/2023 14:06:54 08/01/19 24 08/02/2023 LIPID PANEL cholesterol, total 167 mg/dL 100-19 9 normal Not Available [facility] ([facility]) [address] [place], [address], 08/02/2023 14:06:59 08/01/19 24 08/02/2023 LIPID PANEL triglyceride s 82 mg/dL 0-149 normal Not Available [facility] ([facility]) [address] [place], [address], 08/02/2023 14:06:59 08/01/19 24 08/02/2023 LIPID PANEL HDL cholesterol 51 mg/dL >39 normal Not Available [facility] ([facility]) [address] [place], [address], 08/02/2023 14:06:59 08/01/19 24 08/02/2023 LIPID PANEL VLDL cholesterol sandeep 15 mg/dL 5-40 Not Available [facility] ([facility]) [address] [place], [address], 08/02/2023 14:06:59 08/01/19 24 08/02/2023 LIPID PANEL LDL chol calc ([facility]) 101 mg/dL 0-99 above high normal Not Available [facility] ([facility]) [address] [place], [address], 08/02/2023 14:06:59 08/01/19 24 08/02/2023 LIPID PANEL comment: DEVOPS CONSULTANT Not Available [facility] ([facility]) [address] [place], [address], 08/02/2023 14:06:59 08/01/19 24 08/02/2023 ALBUM IN/CR EATIN INE RATIO ,URIN E creatinine, urine 138.3 mg/dL not estab. normal Not Available [facility] ([facility]) [address] [place], [address], 08/02/2023 14:07:01 08/01/19 24 08/02/2023 ALBUM IN/CR EATIN INE RATIO ,URIN E albumin, urine 10.6 ug/mL not estab. Not Available [facility] ([facility]) [address] [place], [address], 08/02/2023 14:07:01 08/01/19 24 08/02/2023 ALBUM IN/CR EATIN INE RATIO ,URIN E alb/creat ratio 8 mg/g_ creat 0-29 Tami l: 0 - 29 Moder ately incre ased: 30 - 300 Sever vj incre ased: >300 Not Available [facility] ([facility]) [address] [place], [address], 08/02/2023 14:07:01 08/01/19 24 08/02/2023 HEMOG LOBIN A1C hemoglobin A1C 8.8 % 4.8-5. 6 above high normal Predi abete s: 5.7 - 6.4 Diabe azar: >6.4 Glyce halina contr ol for adult s with diabe azar: <7.0 Not Available [facility] ([facility]) [address] [place], [address], 08/02/2023 14:07:03 08/01/19 24 08/02/2023 THYRO XINE (T4) FREE, DIREC T T4,free(dire ct) 1.35 NG/dL 0.82-1 .77 normal Not Available [facility] ([facility]) [address] [place], [address], 08/02/2023 14:07:05 08/01/19 24 08/02/2023 TSH TSH 3.250 uIU/m L 0.450- 4.500 normal Not Available [facility] ([facility]) [address] [place], [address], 08/02/2023 14:07:07 01/30/20 24 01/31/2024 COMP. METAB OLIC PANEL (14) glucose 284 mg/dL 70-99 above high normal Not Available [facility] ([facility]) [address] [place], [address], 02/09/2024 21:26:58 01/30/20 24 01/31/2024 COMP. METAB OLIC PANEL (14) BUN 8 mg/dL 8-27 normal Not Available [facility] ([facility]) [address] [place], [address], 02/09/2024 21:26:58 01/30/20 24 01/31/2024 COMP. METAB OLIC PANEL (14) creatinine 0.93 mg/dL 0.57-1 .00 normal Not Available [facility] ([facility]) [address] [place], [address], 02/09/2024 21:26:58 01/30/20 24 01/31/2024 COMP. METAB OLIC PANEL (14) eGFR 64 mL/mi n/1.7 3 >59 normal Not Available [facility] ([facility]) [address] [place], [address], 02/09/2024 21:26:58 01/30/20 24 01/31/2024 COMP. METAB OLIC PANEL (14) BUN/creatini ne ratio 9 12-28 below low normal Not Available [facility] ([facility]) [address] [place], [address], 02/09/2024 21:26:58 01/30/20 24 01/31/2024 COMP. METAB OLIC PANEL (14) sodium 139 mmol/ L 134-14 4 normal Not Available [facility] ([facility]) [address] [place], [address], 02/09/2024 21:26:58 01/30/20 24 01/31/2024 COMP. METAB OLIC PANEL (14) potassium 3.3 mmol/ L 3.5-5. 2 below low normal Not Available [facility] ([facility]) [address] [place], [address], 02/09/2024 21:26:58 01/30/20 24 01/31/2024 COMP. METAB OLIC PANEL (14) chloride 94 mmol/ L 96-106 below low normal Not Available [facility] ([facility]) [address] [place], [address], 02/09/2024 21:26:58 01/30/20 24 01/31/2024 COMP. METAB OLIC PANEL (14) carbon dioxide, total 28 mmol/ L 20-29 normal Not Available [facility] ([facility]) [address] [place], [address], 02/09/2024 21:26:58 01/30/20 24 01/31/2024 COMP. METAB OLIC PANEL (14) calcium 10.0 mg/dL 8.7-10 .3 normal Not Available [facility] ([facility]) [address] [place], [address], 02/09/2024 21:26:58 01/30/20 24 01/31/2024 COMP. METAB OLIC PANEL (14) protein, total 7.0 g/dL 6.0-8. 5 normal Not Available [facility] ([facility]) [address] [place], [address], 02/09/2024 21:26:58 01/30/20 24 01/31/2024 COMP. METAB OLIC PANEL (14) albumin 3.9 g/dL 3.8-4. 8 normal Not Available [facility] ([facility]) [address] [place], [address], 02/09/2024 21:26:58 01/30/20 24 01/31/2024 COMP. METAB OLIC PANEL (14) globulin, total 3.1 g/dL 1.5-4. 5 Not Available [facility] ([facility]) [address] [place], [address], 02/09/2024 21:26:58 01/30/20 24 01/31/2024 COMP. METAB OLIC PANEL (14) bilirubin, total 0.3 mg/dL 0.0-1. 2 normal Not Available [facility] ([facility]) [address] [place], [address], 02/09/2024 21:26:58 01/30/20 24 01/31/2024 COMP. METAB OLIC PANEL (14) alkaline phosphatase 73 IU/L 44-121 normal Not Available [facility] ([facility]) [address] [place], [address], 02/09/2024 21:26:58 01/30/20 24 01/31/2024 COMP. METAB OLIC PANEL (14) AST (SGOT) 64 IU/L 0-40 above high normal Not Available [facility] ([facility]) [address] [place], [address], 02/09/2024 21:26:58 01/30/20 24 01/31/2024 COMP. METAB OLIC PANEL (14) ALT (SGPT) 37 IU/L 0-32 above high normal Not Available [facility] ([facility]) [address] [place], [address], 02/09/2024 21:26:58 01/30/20 24 01/31/2024 LIPID PANEL cholesterol, total 164 mg/dL 100-19 9 normal Not Available [facility] ([facility]) [address] [place], [address], 02/09/2024 21:26:59 01/30/20 24 01/31/2024 LIPID PANEL triglyceride s 105 mg/dL 0-149 normal Not Available [facility] ([facility]) [address] [place], [address], 02/09/2024 21:26:59 01/30/20 24 01/31/2024 LIPID PANEL HDL cholesterol 49 mg/dL >39 normal Not Available [facility] ([facility]) [address] [place], [address], 02/09/2024 21:26:59 01/30/20 24 01/31/2024 LIPID PANEL VLDL cholesterol sandeep 19 mg/dL 5-40 Not Available [facility] ([facility]) [address] [place], [address], 02/09/2024 21:26:59 01/30/20 24 01/31/2024 LIPID PANEL LDL chol calc ([facility]) 96 mg/dL 0-99 Not Available [facility] ([facility]) [address] [facility], [place], [address], 02/09/2024 21:26:59 01/30/20 24 01/31/2024 LIPID PANEL LDL calc comment: DEVOPS CONSULTANT Not Available [facility] ([facility]) [address] [facility], [place], [address], 02/09/2024 21:26:59 01/30/20 24 01/31/2024 ALBUM IN/CR EATIN INE RATIO ,URIN E creatinine, urine 24.1 mg/dL not estab. normal Not Available [facility] ([facility]) [address] [facility], [place], [address], 02/09/2024 21:27:00 01/30/20 24 01/31/2024 ALBUM IN/CR EATIN INE RATIO ,URIN E albumin, urine 10.7 ug/mL not estab. Not Available [facility] ([facility]) [address] [facility], [place], [address], 02/09/2024 21:27:00 01/30/20 24 01/31/2024 ALBUM IN/CR EATIN INE RATIO ,URIN E alb/creat ratio 44 mg/g_ creat 0-29 above high normal Tami l: 0 - 29 Moder ately incre ased: 30 - 300 Sever vj incre ased: >300 Not Available [facility] ([facility]) [address] [facility], [place], [address], 02/09/2024 21:27:00 01/30/20 24 2024 TSH+F REE T4 TSH-icma 3.3 uu/mL Refer ence Range : Non-P regna nt Adult 0.450 -4.50 0 Pregn dhaval First Trime ster 0.100 -4.00 0 Secon d Trime ster 0.200 -4.00 0 Third Trime ster 0.300 -4.50 0 Not Available [facility] [address] [facility], [place], [address], 02/09/2024 21:27:00 01/30/20 24 02/09/2024 TSH+F REE T4 free T4 by dialysis/mas s spec 1.7 NG/dL This test was devel oped and its perfo rmanc e martha cteri stics deter mined by [facility]. It has not been clear ed or appro birdie by the Food and Drug Admin istra tion. Refer ence Range : Puber julienne Child kallie and Adult s: 0.8 - 1.7 Not Available [facility] [address] [facility], [place], [address], 02/09/2024 21:27:00 01/30/20 24 01/31/2024 HEMOG LOBIN A1C hemoglobin A1C 8.1 % 4.8-5. 6 above high normal Predi abete s: 5.7 - 6.4 Diabe azar: >6.4 Glyce halina contr ol for adult s with diabe azar: <7.0 Not Available [facility] ([facility]) [address] [facility], [place], [address], 02/09/2024 21:27:01 12/24/19 23 12/22/2022 bone densi ty No observ ation record ed. [address], [address], 2023 10:34:06 Result Notes None recorded. Problems Name Problem SNOMED Code Status Onset Date Resolution Date Notes Provider Name and Address Organization Details Recorded Time Headache 31490980 Active Not Available [facility] 3 03:15:34 On examinatio n - a rash Completed 03/27/2013 Not Available [facility] 3 02:00:50 Diarrhea 78497309 Completed 03/27/2013 Not Available [facility] 3 02:02:16 Type 2 diabetes mellitus without complicati on 161052413 Active Ward Wyman MD [address] [place] [address], [phone] , [facility] 6 18:08:43 Aortic valve disorder 7426398 Active Not Available [facility] 3 03:15:34 Uncontroll ed type 2 diabetes mellitus 582618676 [facility] 17:29:59 Hypoglycem ia 780841749 Active Not Available [facility] 3 03:15:34 Hypothyroi dism 63555924 Active Ward Wyman MD [address] [place] [address], [phone] , [facility] 6 18:08:43 Pure hyperchole sterolemia 633834373 Active Ward Wyman MD [address] [place] [address], [phone] , [facility] 3 12:02:41 Hyperlipid emia 79274742 Active Carolina Hoffmann LPN [facility], [facility] 5 16:59:54 Aching pain 83564358 Active Ward Wyman MD [address] [place] [address], [phone] , [facility] 4 18:15:56 Problem Notes None recorded. Procedures Surgical History Date Name Laterality Status Provider Name and Address Organization Details Recorded Time 0 Medicare Visit Tracking DM completed Shahnaz Chacko RN, BSN, [address], [address], [facility] 10/22/2019 12:00:37 8 Knee arthroscopy/krystin maia completed Carolina Hoffmann LPN [facility] 08/30/2017 10:26:05 5 Medicare Visit Tracking DM completed BRENTON Childers, RN, CPT, CDE [address] [place] [address], [address] [place] [address], [facility] 01/07/2015 13:58:01 lumpectomy of left breast completed Karen Hines [facility] 03/27/2019 11:08:04 Imaging Results Imaging Date Name Status LastModified by [facility] Details LastModified Time 12/22/2022 bone density completed [facility] [address] [place], [address], 2023 10:34:06 Procedure Notes None recorded. Medical Equipment None Reported. Allergies Allergen ID Allergen Name Allergen Category Reaction Reaction Severity Criticality Documentation Date Start Date Code Code System Note Provider Name and Address Organization Details Recorded Time 38302 Substance with sulfonami de structure and antibacte rial mechanism of action (substanc e) medicatio n Not available Not available Not available 05/18/2011 [id number] SNOMED rash Shahnaz Cosme RN [place], [place] - [facility] 3 11:01:18 Medications Name Sig Start Date Stop Date Status Note LastModified by Organization Details LastModified Time Prescript ion - Prior Authoriza tion Request active Not Available Not Available Not Available desoximet asone 0.25 % topical cream active Not Available Not Available Not Available Prandin 0.5 mg tablet Take 1 tablet twice a day by oral route before meals for 90 days. 02/22 completed 04/09- only taking 2x/day with Breakfas t and dinner. Having lows before lunch. 0.5 mg in the a.m. only Not Available Not Available Not Available lisinopri l 20 mg-hydroc hlorothia zide 12.5 mg tablet Take 1 tablet every day by oral route. 10/16 completed Not Available Not Available Not Available clobetaso l 0.05 % topical cream APPLY A THIN LAYER TO THE AFFECTED AREA(S) BY TOPICAL ROUTE 2 TIMES PER DAY active Prescibe d by Surgeon; Dr. Andino s Not Available Not Available Not Available warfarin 2.5 mg tablet active Not Available Not Available Not Available aspirin 81 mg tablet,de layed release Take 1 tablet every day by oral route. active Not Available Not Available No t Available tramadol 50 mg tablet active PRN Not Available Not Available Not Available levothyro xine 25 mcg tablet TAKE 1 TABLET DAILY DIRECTED . NEED LABS PRIOR TO NEXT REFILL. 01/28 completed Not Available Not Available Not Available pravastat in 10 mg tablet Take 1 tablet every day by oral route for 30 days. 03/27 completed Not Available Not Available Not Available glipizide ER 2.5 mg tablet, extended release 24 hr Take 1 tablet every day by oral route for 90 days. 05/27 completed Not Available Not Available Not Available cephalexi n 500 mg capsule active Not Available Not Available Not Available glimepiri de 4 mg tablet TAKE 1 TABLET TWICE A DAY 2021 active Not Available Not Available Not Avai lable Synthroid 50 mcg tablet TAKE 1 TABLET DAILY 2024 active Not Available Not Available Not Avai lable balsalazi de 750 mg capsule Take 3 capsules 3 times a day by oral route. active cuts back when not flair up, Not Available Not Available Not Available omeprazol e 20 mg capsule,d elayed release TAKE 1-2 CAPSULE (20 MG) BY ORAL ROUTE ONCE DAILY 10/14 completed Not Available Not Available Not Available lisinopri l 20 mg-hydroc hlorothia zide 25 mg tablet Take 1.5 tablet(s ) every day by oral route. 12/29 completed Prescrib ed by PCP Not Available Not Available Not Available mupirocin 2 % topical ointment active Not Available Not Available Not Available digoxin 125 mcg (0.125 mg) tablet Take 1 tablet every day by oral route. active Not Available Not Available No t Available dicyclomi ne 10 mg capsule Take 2 capsules every 4 hours by oral route. active PRN-for dentist visits Not Available Not Available Not Available glipizide 5 mg tablet Take 1 tablet every day by oral route at bedtime for 90 days. 2012 active having low sugars when taking 1/2 tab, hasn't been taking it. Not Available Not Available Not Available Prandin 1 mg tablet Take 1 tablet twice a day by oral route before meals for 90 days. 10/14 completed Not Available Not Available Not Available diazepam 5 mg tablet active Not Available Not Available Not Available acarbose 25 mg tablet Take 1 tablet 3 times a day by oral route. 2011 active Not Available Not Available Not Avai lable enoxapari n 100 mg/mL subcutane ous syringe active Not Available Not Available Not Available escitalop bozena 10 mg tablet Take 1 tablet every day by oral route. active Not Available Not Available No t Available Premarin 0.625 mg/gram vaginal cream active Not Available Not Available Not Available Byetta 5 mcg/dose (250 mcg/mL)1. 2 mL subcutane ous pen injector Inject 0.02 mL twice a day by subcutan eous route for 90 days. 12/08 completed pt did not start medicati on due to life style changes Not Available Not Available Not Available Lasix 40 mg 1 tab po twice daily 12/29 completed Not Available Not Available Not Available torsemide 40 mg twice daily active PT taking 1 tab daily but often varies depandin g on wgt 01/29/24 Not Available Not Available Not Available Prandin 1 mg - po with meals (TID) 02/22 completed Not Available Not Available Not Available metoprolo l succinate 50 mg take 1 and 1/2 tab twice daily (total dose 75mg. )daily active PT taking 200mg 1 tab daily 01/29/24 Not Available Not Available Not Available Vagifem 10 mg tablet taking twice weekly active Not Available Not Available No t Available MoviPrep 100 gram-7.5 gram-2.69 1 gram oral powder packet active Not Available Not Available Not Available Januvia 100 mg tablet Take 1 tab PO daily 02/17 completed Not Available Not Available Not Available Symbicort 80 mcg-4.5 mcg/actua tion HFA aerosol inhaler Inhale 2 puffs twice a day by inhalati on route as needed. active Not Available Not Available No t Available Vitamin D3 50 mcg (2,000 unit) tablet 1 tab PO daily active Not Available Not Available No t Available levothyro xine 25 mcg capsule Take 1 capsule every day by oral route. active Not Available Not Available No t Available OneTouch Verio test strips USE TO TEST BLOOD SUGAR UP TO TWO TIMES A DAY AND NEEDED FOR LOW BLOOD SUGARS 2023 active Not Available Not Available Not Avai lable Eliquis 5 mg tablet Take 1 tablet twice a day by oral route. active Not Available Not Available No t Available Invokana 100 mg tablet TAKE 1 TABLET DAILY 08/15 completed Not Available Not Available Not Available Accu-Chek Compact Plus Test Strips test blood sugar up to 5x/day (90 day supply) 08/18 completed Not Available Not Available Not Available Jardiance 10 mg tablet Take 1 tablet every day by oral route. 08/15 completed Not Available Not Available Not Available Trulicity 1.5 mg/0.5 mL subcutane ous pen injector Inject 1.5 mg every week by subcutan eous route for 90 days. 01/28 completed Not Available Not Available Not Available Trulicity 0.75 mg/0.5 mL subcutane ous pen injector Inject 0.75 mg every week by subcutan eous route for 90 days. 10/08 completed stopped and increase d to 1.5 weekly 10/09/23 Not Available Not Available Not Available Tresiba FlexTouch U-100 insulin 100 unit/mL (3 mL) subcutane ous pen Inject 10 units by subcutan eous route. 10/22 completed Not Available Not Available Not Available Ozempic 0.25 mg or 0.5 mg (2 mg/1.5 mL) subcutane ous pen injector Inject 0.5 mg every week by subcutan eous route for 30 days. 2023 active taking 0.25 mg weekly now 01/29/24 Not Available Not Available Not Available Ozempic 1 mg/dose (4 mg/3 mL) subcutane ous pen injector Inject 1 mg by subcutan eous route every week 2024 active Not Available Not Available Not Avai lable Ozempic 0.25 mg or 0.5 mg (2 mg/3 mL) subcutane ous pen injector INJECT 0.5MG SUBCUTAN EOUSLY EVERY WEEK. 2023 active Not Available Not Available Not Avai lable Vitals Date Recorded Body height Body mass index (BMI) Body weight Heart rate Systolic blood pressure Diastolic blood pressure Provider Name and Address Organization Details Last Updated DateTime 2 172.72 cm 31.9 kg/m2 23085.4 g 100 /min 116 mm[Hg] 77 mm[Hg] Litzy Almanza LPN [facility] 2 15:53:22 Date Recorded Body height Body mass index (BMI) Body weight Heart rate Systolic blood pressure Diastolic blood pressure Provider Name and Address Organization Details Last Updated DateTime 3 172.47 cm 33.3 kg/m2 73939.2 9 g 94 /min 108 mm[Hg] 60 mm[Hg] Litzy Almanza LPN [facility] 3 14:04:31 Date Recorded Body height Body mass index (BMI) Body weight Heart rate Systolic blood pressure Diastolic blood pressure Provider Name and Address Organization Details Last Updated DateTime 4 172.47 cm 28.8 kg/m2 58372.9 6 g 70 /min 128 mm[Hg] 62 mm[Hg] Taty Briggs LPN [facility] 4 14:33:39 Date Recorded Body height Body mass index (BMI) Body weight Heart rate Systolic blood pressure Diastolic blood pressure Provider Name and Address Organization Details Last Updated DateTime 4 172.21 cm 28.1 kg/m2 22154.8 4 g 69 /min 112 mm[Hg] 57.99 mm[Hg] Litzy Almanza LPN [facility] 4 15:16:20 Date Recorded Body height Body mass index (BMI) Body weight Heart rate Systolic blood pressure Diastolic blood pressure Provider Name and Address Organization Details Last Updated DateTime 4 172.21 cm 29.4 kg/m2 28982.7 4 g 61 /min 132 mm[Hg] 57 mm[Hg] Noel Lange RN [facility] 4 11:59:17 Social History Question Answer Notes LastModified by Organizat ion Details LastModified Time Tobacco Smoking Status Never Smoker ELENA Romero [facility] 05/18/2011 11:03:16 What Is Your Level Of Alcohol Consumption? None [email or web address] Information not available 10/14/2020 Which Illicit Or Recreational Drugs Have You Used? 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 With Others Information not available 02/08/2013 DM Disease Process Post-grasps [place] Information not available 11/18/2014 Nutrition Post-grasps [place] Information not available 11/18/2014 Physical Activity Post-needs Review Information not available 11/18/2014 Medications Post-needs Review Information not available 11/18/2014 Monitoring Post-needs Review Information not available 11/18/2014 Acute Complications Post-needs Review Information not available 11/18/2014 Chronic Complications Not Assessed Information not available 11/18/2014 Coping Post-needs Review Information not available 11/18/2014 Behavior Change Post-needs Review Information not available 11/18/2014 DSME Plan Goal Healthy Eating: Will Stay Within 30-45g Of Carb At Meals And 15g Of Carb At Snacks Information not available 11/18/2014 DSME Plan Goal Success Initiated Information not available 11/18/2014 DSME Plan Goal Evaluation: 11/18/2014 Information not available 11/18/2014 DSME Plan Initiated: 11/18/2014 DSMT 1:1 X 5-6 Information not available 11/20/2014 DSME Plan Status In Progress - Dates Seen: 11/18 Information not available 11/20/2014 CCM Consent Discussion 08/30/2017 [email or web address] Information not available 06/12/2020 Marital Status [email or web address] Informati on not available 02/08/2013 What Was The Date Of Your Most Recent Tobacco Screening? 02/14/2018 Information not available 11/28/2018 How Many Children Do You Have? 3 Information not available 02/08/2013 Do You Use Any Illicit Or Recreational Drugs? No Information not available 04/16/2021 Do You Or Have You Ever Used Any Other Forms Of Tobacco Or Nicotine? No Information not available 04/16/2021 Sex: Unknown Functional Status None recorded. Mental Status None recorded. Family History Relationship Description Onset Age of this Age Resolved Age Notes LastModified by Organization Details LastModified Time Father Heart disease [email or web address] n Not available 10/07/2015 17:24:40 Brother Type 2 diabetes mellitus [email or web address] n Not available 10/07/2015 17:24:40 Brother Myasthenia gravis [email or web address] n Not available 10/07/2015 17:24:40 Notes:Dad about 82- com plications after hip surgery. Aspirated. certificate listed heart attack. Dad had Crohns. Mom from heart disease. 80's Brother from blood clot- about 66. (+) DM. Hx of autoimmune disease (thymus removed as adult). 3 sons- alive and well. one has colitis. 7 grandchildren- all healthy. 10/17- brother had myasthenia also. sons OK- (oldest has GI sx- colitis). grandkids OK 04/18- brother 6 years ago. he had blood clot too. sons about the same. grandkids OK. 10/18- sons OK. grandkids OK. nephew recently - age 55. Hx of poor circulation and had lost toes. Found him at home. 07/19- no changes. family recovering from loss of nephew who . 10/20- mother had vulvar cancer at time of . Sons and grandkids healthy. 02/19- no changes. Sons/grands are all OK 10/21- family OK. on metformin. 03/26- no changes. Sons and grands OK. 10/25: Kids/grands are OK. 06/28: Son and grand got COVID. 10/26: Youngest and middle son's families got COVID- came through OK. 04/27: Thinks family got vaccinated. 08/28: Kids concerned about her health. (geovany randall, subha) Medical History Condition Response Thyroid Disease Y Diabetes Type II Y Sleep Apnea Y Gynecological HistoryNo gynecological history recorded. Obstetrics History GPAL:G 0 P 0 0 0 0 Immunizations Vaccine Type Date Status Note Provider Nam e and Address Organization Details Recorded Time Influenza, high-dose, trivalent, PF 0 completed ELENA Dodge, [facility] 06/15/2020 13:13:18 COVID-19, mRNA, LNP-S, PF, 100 mcg/0.5mL dose or 50 mcg/0.25mL dose 1 completed ELENA Lira, [facility] 10/14/2020 12:07:23 COVID-19, mRNA, LNP-S, PF, 100 mcg/0.5mL dose or 50 mcg/0.25mL dose 1 completed Beverly Kolb LPN null, [facility] 10/14/2020 12:07:43 COVID-19, mRNA, LNP-S, PF, 100 mcg/0.5mL dose or 50 mcg/0.25mL dose 1 completed Michelle Bolton RN null, [facility] 04/16/2021 09:26:47 Influenza, split virus, quadrivalent, preservative 1 completed Michelle Bolton RN null, [facility] 04/16/2021 09:27:11 Past Encounters Encounter ID Performer Location Encounter Start Date Encounter Closed Date Diagnosis/Indication Diagnosis SNOMED-CT Code Diagnosis ICD10 Code Diagnosis Note [id number] [facility], [address] [address] 05/18/2011 10:44:00 05/18/2011 13:19:41 [id number] Sowmya Romano [facility], [address] [address] 08/05/2011 13:32:45 09/01/2011 15:39:19 [id number] Shahnaz Loya [facility], [address] [address] 10/28/2011 09:59:34 10/28/2011 11:49:27 [id number] Ward Wyman MD [facility], [address] [address] 04/18/2012 09:57:28 04/18/2012 11:33:14 [id number] Shahnaz Cosme RN [facility], [address] [address] 10/12/2012 10:46:32 10/12/2012 12:26:39 [id number] Ward Wyman MD [facility], [address] [address] 02/08/2013 11:01:19 02/08/2013 12:29:17 Uncontrolled type 2 diabetes mellitus [id number] Pt declined flu shot. Wants to have it done at her place of employment . Pt decided against Invokana after discussion with PCP, Cardiologi st and reading informatio n. Pt indicated that in past has not done well with metformin (but has not been on ER), jennifer garnica. Denies having been on any sulfonyure a. Question if was because a1c in past was 6.8. Since A1c elevated and remaining elevated at 7.5 could try glipizide ER 2.5 mg once daily in AM. Given complex medical history and pt sensitivit y, want to have more time to review her chart before giving her this. Told her would review chart over the weekend and call her next week. She was agreeable with this. Exercise- limited by fibro. Can swim if heated pool, if not heated then goes into spasms. Suggested may wish to reinvestig ate pools she can manage in. LFT- mildly elevated today. ADDENDUM: 02/26/13 looking through chart, I do not see where she has tried slufonyrue a in the past. Looking through the drug informatio n, use of sulfonyure a in pt with allergy is not contraindi cated in product labelling. Close monitoring is recommende d and starting with low dose. Pt chart indicates rash in past with sulfa. Discussed trial of low dose glipizide ER 2.5 mg in am once daily to ensure no rash, no changes to LFT and no GI sensitivit y. Other than this, insulin is next step due to pt multiple sensitivit ies to all other drugs tried. Asked pt to watch for GI distubance , low blood sugars, abdominal pain, n/v/jaundi ce and to send in glucose readings in 2 weeks. If pt has reaction to medication she is to stop and call the office. Will send in rx to local pharmacy [facility] [address]. Send pt lab slip to monitor LFT in a month and to get labs in preparatio n for Apr visit with Dr. Wyman. Hypothyroidism 77062950 TFT to goal cont on 25 mcg generic. [id number] Bettina Power, RN, BSN, [facility], [address] [address] 04/19/2013 10:52:55 04/19/2013 12:06:25 Uncontrolled type 2 diabetes mellitus 824396379 a1c a bit better with limited trial of glipiide- now 7.4 and was up to 7.6% Has had reactions to all meds tried or she has felt that meds didn't work. log book shows BG better during time on glipizide. Other providers suggested not trying any new medication and insurance didn't want to pay for it. So didn't try SGLT2 inhibitor to try (pancho newman). If works, can file for prior auth with insurance since other meds not working. Will try glipizide but avoid ER to see if that works. STart off with glipizide taking 1/2 of 5 mg pill and see if can tolerate. Hypothyroidism 77782966 On 25 mcg generic. Last TSH at goal. Follow labs and adjust if TSH goes up over 4.5. Pure hypercholesterolemia 456106087 LDL now at 105 but has been down at 90 (previousl y up to 115). Not on statins out of concern for worsening sx (mostly related to fibromyalg ia). Hasn't ever been on statins. Previously discussed possible use of pravastati n (with coQ10) to avoid some of the myalgia problems. Cardiologi (Charissa ) told her lipids weren't that bad so she didn't try it. Concerned about risk given results of studies such as Heart Protection . She has not wanted to try statins unless absolutely necessary. REviewed importance of CV prevention and considerat ion of trying small dose of statin. Tried to find about welchol (above) but told insurance wouldn't cover. [id number] [facility], [address] [address] 07/17/2013 10:28:16 07/17/2013 11:49:29 Type 2 diabetes mellitus without complication 552750753 Better a1c now at 6.8. C/O lows during night with values in low 70's. Suggest cut glipizide in half so take 2.5 at HS and 2.5 in AM (OK to take after bkfst if under 100). Hypothyroidism 24033367 Doing well on 25 mcg generic. TSH at goal- doing well. Hyperlipidemia 50977672 LDL not at goal but intolerant of all meds. Watch for now. May try and see if she could take Welchol. [id number] Bettina Power RN, BSN, [facility], [address] [address] 11/22/2013 13:45:23 11/22/2013 15:21:52 Hypothyroidism 21908898 Doing well on 25 mcg generic. TSH at goal- doing well. Hyperlipidemia 44725392 LDL not at goal but intolerant of all meds. Watch for now. May try and see if she could take Welchol. But want to try and get diabetes under control first. Uncontroll ed type 2 diabetes mellitus 263296494 a1c up to 7.7%. Now off glipizide (had tried to get her to take 1/2 pill at night but stopped taking because had sweats and thought they were lows but never documented low sugar). Has not been able to take most meds (often c/o side effects). Will try prandin in order to give some insulin release around meals but minimize risk for lows (talks frequently about having lows when she's out doing errands). Aching pain 66985667 Mos tly in back. worse lying on left side. Feels it is different from fibromyalg ia. Seems to have been precipitan t for recent worsening control of sugars. [id number] Bettina Power RN, BSN, [facility] Endocr[facility], [address] [address] 01/15/2014 11:25:29 01/15/2014 12:28:11 Uncontrolled type 2 diabetes mellitus [id number] Started on Prandin 1 mg and taking at bkfst and dinner but having some s/e about 1 hour afterwards . Sugars not typically low then (had one value of 65 almost 4 hours later) but has sweats and flashes which may be from the prandin. Also she is tending to eat more at meals to prevent having lows. Will decrease prandin to 0.5 mg and encourage her to decrease CHO content of meal in order to prevent vicious cycle (eating more to prevent low on current dose) which will likely result in weight gain. Hope to see improvemen t in A1c next time (most recent was 7.7%). Now off glipizide (had tried to get her to take 1/2 pill at night but stopped taking because had sweats and thought they were lows but never documented low sugar). And has not been able to take most meds (often c/o side effects). Hypothyroidism [id number] Doing well on 25 mcg generic. TSH at goal- doing well. [id number] Neena Spencerl [facility], [address] [address] 04/10/2014 09:32:30 04/10/2014 10:49:37 Type 2 diabetes mellitus without complication [id number] Better a1c now at 6.9%. C/o lows during night with values less than 80. Given a1c, continue on Prandin. Suggest that she eat regular meal the night before surgery and take prandin. If sugar is under 80 by 10PM, OK to have a small snack (without med). Don't take meds day of surgery. Hypothyroidism [id number] Doing well clinically on 25 mcg generic. TSH is slightly up at 3.26. Patient willing to try higher dose. [id number] Neena Joaquin Endocr[facility], [address] [address] 10/16/2014 09:53:55 10/16/2014 11:15:27 Type 2 diabetes mellitus without complication [id number] Poor control with a1c of 8.5%. Had been much better with range of high 6s to mid 7s. Reviewed options: 1) intensive lifestyle changes but she probably can't do that given SOB (and question of LVH or other cardiac issues) 2) SGLT2- but might have problems with increased risk of UTI/yeast infections 3) Incretin- which would help with weight loss but has GI s/e. 4) insulin which has best chance of lowering her a1c to goal but would not help weight loss and would increase risk for lows. She wants to check coverage with insurance. Until then suggest increase in Prandin to 2 pills with all meals. Hypothyroidism [id number] Doing well clinically on 25 mcg generic. TSH is slightly up at 3.26. Not sure if increase dose will have any clinical impact. For now, monitor labs. Emphasis on getting a1c back towards goal. [id number] [facility] , [address] [address] 11/18/2014 10:00:21 11/18/2014 11:14:12 Uncontrolled type 2 diabetes mellitus [id number] [facility] , [address] [address] 01/07/2015 13:16:41 01/07/2015 15:37:35 Uncontrolled type 2 diabetes mellitus [id number] Endocr[facility], [address] [address] 02/05/2015 10:26:34 02/05/2015 11:42:16 Type 2 diabetes mellitus without complication [id number] E11.9 Much better control in 01/2015 with a1c down to 6.6 from 8.5%. Much better about diet. Started on Invokana but developed yeast infection after 2 doses. Still persisting after 4 weeks (per patient). Patient hopes to have sugars get better after yeast infection resolved. If not, will need to consider other options. Reviewed options: 1) Continued effort on intensive lifestyle changes but she may have troubles staying on this detention. (also can't exercise much given SOB and question of LVH or other cardiac issues) 2) Incretin- which would help with weight loss but has GI s/e. 3) Re-try GROVER at HS to see if can bring down AM sugars 4) insulin which has best chance of lowering her a1c to goal but would not help weight loss and would increase risk for lows. Until then suggest increase in Prandin to 2 pills with all meals. Hypothyroidism [id number] E03.9 Doing well clinically on 25 mcg generic. TSH is slightly up just over 3. Not sure if increase dose will have any clinical impact and she doesn't want to take more. For now, monitor labs. [id number] Shital Bernabe [facility], [address] [address] 10/07/2015 16:50:23 10/09/2015 12:34:57 Hypothyroidism [id number] E03.9 Doing well clinically on 25 mcg generic. TSH is slightly up just over 3. Not sure if increase dose will have any clinical impact and she doesn't want to take more. For now, monitor labs. Type 2 diamante betes mellitus without complication [id number] E11.9 Much worse control now (8.0%) vs. before (6.6 in 02/2015). Has fallen off wagon with regards to diet and exercise. At this point, she has basically excluded herself from metformin (s/e at even low doses), DPP-IV (h/a on Januvia), incretins (hasn't tried these but worried about s/e), SGL2 (tried Invokana but developed yeast infection after 2 doses) . Actos not really viable option. She is on Prandin only at 1 mg but not taking more than BID. Suggested insulin but she doesn't want to do that either. If not, will need to consider other options. 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 (also can't exercise much given SOB and question of LVH or other cardiac issues) 2) Incretin- which would help with weight loss but has GI s/e. Willing to try Edna (doesn't need prior approval) 3) Re-try GROVER at HS to see if can bring down AM sugars but no real point in doing that while on Prandin 4) insulin which has best chance of lowering her a1c to goal but would not help weight loss and would increase risk for lows. 5) Only other option would be bromocript ine or Welchol but these won't get a1c down and both have other s/e. Patient agrees to trial of GROVER (will try glimepirid e) with low-dose (5 mcg) Edna. [id number] Ward Wyman MD Endocrino [facility], [address] [address] 02/18/2016 14:26:52 02/18/2016 16:23:11 Type 2 diabetes mellitus without complication [id number] E11.9 Much better control now (6.9% vs previous of 8.0%) - had 6.6 in 02/2015. Has been able to match some improved dietary changes (veggies and less CHO) with her Prandin dosing (1-0-2-0 pills). In past, she has excluded herself from metformin (s/e at even low doses), DPP-IV (h/a on Januvia), incretins (hasn't tried these but worried about s/e), SGL2 (tried Invokana but developed yeast infection after 2 doses). Actos not really viable option. Previously , discussed insulin but she doesn't want to do that either. If not, will need to consider other options. Reviewed options:1) Continued effort on intensive lifestyle changes but she may have troubles staying on this detention. (also can't exercise much given SOB and question of LVH or other cardiac issues)2) Incretin- which would help with weight loss but has GI s/e. She has Byetta (Rx from last time) but hasn't used.3) Re-try GROVER at HS to see if can bring down AM sugars but no real point in doing that while on Prandin4) insulin which has best chance of lowering her a1c to goal but would not help weight loss and would increase risk for lows.5) Only other option would be bromocript ine or Welchol but these won't get a1c down more than 0.5 and both have other s/e. Patient had agreed to trial of GROVER (will try glimepirid e) with low-dose (5 mcg) Byetta. But a1c has come down so will keep this strategy in reserve if/when sugars go up. Hypothyroidism [id number] E03.9 Doing well clinically on 25 mcg generic. TSH is at target.Mon ito labs. [id number] Ward Wyman MD Endocrino [facility], [address] [address] 08/18/2016 11:23:13 08/18/2016 12:43:21 Type 2 diabetes mellitus without complication [id number] E11.9 Control at 7.1% (06/24)- was 6.9% and had been 8.0% - had 6.6 in 02/2015. OK to continue on just prandin but if a1c goes up further, then will need to consider options.- Might be able to take more prandin at dinner but need to know glucose values before and after dinner to see if consistent ly high. Other option would be to get informatio n from CGM. 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 (also can't exercise much given SOB and question of LVH or other cardiac issues)2) Incretin- which would help with weight loss but has GI s/e. She has Byetta (Rx from last time) but hasn't used.3) Re-try GROVER at HS to see if can bring down AM sugars but no real point in doing that while on Prandin4) insulin which has best chance of lowering her a1c to goal but would not help weight loss and would increase risk for lows.5) Only other option would be bromocript ine or Welchol but these won't get a1c down more than 0.5 and both have other s/e. Patient had agreed to trial of GROVER (will try glimepirid e) with low-dose (5 mcg) Hernanetta. But a1c has come down so will keep this strategy in reserve if/when sugars go up. Hypothyroidism [id number] E03.9 Doing well clinically on 25 mcg generic. TSH is at target (3.01 on labs from [facility] in 07/22)Monit or labs. Anemia [id number] D64.9 Can affect accuracy of A1c.H/H= 10.7/34.5; Getting GI w/u (small bowel camera pending). Encourage her to f/u with PCP for next steps. [id number] Ward Wyman MD Endocrino logy, [address] [address] 02/22/2017 15:05:19 02/22/2017 16:38:05 Type 2 diabetes mellitus without complication [id number] E11.9 Control at 7.9% (02/21)- not really taking prandin. Too much trouble rememberin g.Had been 7.1% (06/24)- was 6.9% and had been 8.0% - had 6.6 in 02/2015. Has Glimepirid e but hasn't tried.Didn 't try Byetta (was concerned it had frozen)- told that Keli covered with prior auth. Suggest she start glimepirid e at 4 mg per day. And also send Rx for Keli (generate prior auth) to use that at low dose. Hope to get better control of glucoses through 2-fold therapy. Other options might be:- insulin which has best chance of lowering her a1c to goal but would not help weight loss and would increase risk for lows.- Only other option would be bromocript ine or Welchol but these won't get a1c down more than 0.5 and both have other s/e. Hypothyroidism 12785322 E03.9 Doing well clinically on 25 mcg generic. TSH is slightly up at 3.46 (10/22); Monitor labs. If further increase, can go up to 50 mcg. [id number] Ward Wyman MD Endocrino [facility], [address] [address] 08/30/2017 09:59:20 08/30/2017 12:03:07 Type 2 diabetes mellitus without complication [id number] E11.9 Control at 7.8% (07/23- was 7.9% in 02/21)- on glimepirid e 4mg and Trulicity (0.75mg) . Generally increasing /worsening - had been 7.1% (06/24)- was 6.9% and had been 8.0% - had 6.6 in 02/2015. Other options might be:- insulin which has best chance of lowering her a1c to goal but would not help weight loss and would increase risk for lows.- Only other option would be bromocript ine or Welchol but these won't get a1c down more than 0.5 and both have other s/e. Suggested that she start on long-actin g insulin as best option. Hypothyroidism 41672307 E03.9 Doing well clinically on 25 mcg generic. TSH is 2.98 (07/23); was slightly up at 3.46 (10/22); Monitor labs. If further increase, can go up to 50 mcg. [id number] Ward Wyman MD Endocrino [facility], [address] [address] 02/14/2018 10:41:31 02/14/2018 12:17:33 Hypothyroidism 72755611 E03.9 Doing well clinically on 25 mcg generic. TSH is 3.53 ((02/22); was 2.98 (07/23); was slightly up at 3.46 (10/22); Monitor labs. If further increase, can go up to 50 mcg. Type 2 diamante betes mellitus without complication [id number] E11.9 Not controlled .A1c 7.9% in 02/22 - was 7.8% (07/23); was 7.9% in 02/21)-Thi s visit says she is on Prandin and not on glimepirid e (but before had reported reverse)On Trulicity (0.75mg). A1c stable but generally up since last year- had been 7.1% (06/24)- was 6.9% and had been 8.0% - had 6.6 in 02/2015. Other options:- insulin which has best chance of lowering her a1c to goal but would not help weight loss and would increase risk for lows.- Bromocript ine or Welchol but these won't get a1c down more than 0.5 and both have other s/e. Discussed mechanism of action for prandin- needs to take with meals.Sugg est take prandin pre-bkfst and pre-dinner . Ideally, should be taking before each meal. Hyperlipidemia 87292059 E78.5 TG and HDL OK but LDL at 111. She has not wanted to take statin because of concern for s/e but hasn't actually tried it. Discussed that studies have shown benefit with statin even when LDL is around 116.Recomm end she try low dose of statin. She is willing to try. Suggest pravastati n 10 mg. Nonalcohol ic steatohepatitis [id number] K75.81 Dx in 2018. Sees Shraddha. Improving a1c might help. Old study with pioglitazo ne had shown some potential for improvemen t. Newer studies with GLP-1 agonists may indicate benefit but short term and small sample sizes. [id number] Ward Wyman MD Endocrino logy, [address] [address] 08/22/2018 10:38:14 08/22/2018 11:45:33 Hypothyroidism 33645599 E03.9 Doing well clinically on 25 mcg generic. TSH is 3.53 ((02/22); was 2.98 (07/23); was slightly up at 3.46 (10/22); Monitor labs. If further increase, can go up to 50 mcg. Uncontroll ed type 2 diabetes mellitus 825025431 E11.65 Better control in 2019 A1c- 7.1% (07/24); was 7.9% in 02/22 - was 7.8% (07/23); was 7.9% in 02/21)- This visit brings in meds and is on glimepirid e (8mg per day)- NOT on Prandin (had reported that in past) Stopped Trulicity (0.75mg) for nausea. A1c had been 7.1% (06/24)- was 6.9% and had been 8.0% - had 6.6 in 02/2015. Question raised of use of pioglitazo ne for benefit of glucoses and also potentiall y to help fatty liver.Prev ious studies concerned about bladder CA had typically shown more risk at higher doses. Could try 15 mg dose to see if any benefit on LFTs. However, need to also be aware of potential for weight gain as well as impact for risk of heart failure. Previous echo had some abnormalit ies.2017: moderately dilated left atrium with mild concentric LVH. EF= 65%. - Suggest she check with cardiology before starting on pioglitazo ne (15 mg). Other options: - insulin which has best chance of lowering her a1c to goal but would not help weight loss and would increase risk for lows. - Bromocript ine or Welchol but these won't get a1c down more than 0.5 and both have other s/e. Hyperlipidemia 09520764 E78.5 TG and HDL OK - LDL down to 101 (07/24); had been 111 .Tried pravastati n even with coQ10 but had s/e (m/s) Might consider ezetimibe as an option (not absorbed so minimal risk for systemic s/e) Nonalcohol ic steatohepatitis [id number] K75.81 Dx in 2018. told of stage II-III (based on bx). Sees Shraddha.Imp roving a1c would help. LFTs about the same over past few times. Old study with pioglitazo ne had shown some potential for improvemen t. Newer studies with GLP-1 agonists may indicate benefit but short term and small sample sizes. Unfortunat vj, she didn't tolerate Trulicity and not sure she will tolerate other incretins. [id number] Ward Wyman MD Endocrino [facility], [address] [address] 03/27/2019 10:35:17 03/27/2019 12:21:07 Uncontrolled type 2 diabetes mellitus [id number] E11.65 Worse control in fall 2018 with a1c up to 8.4 (02/23).Noemi papito stefi on from admission and heart failure. Will wait to see if improves over next 3 months.Enc ourage her to bring meter in (didn't have today) to download so we can see how she's been doing.If a1c still up in may/jun, will need to talk insulin. A1c- 8.4 (02/23); was 7.1% (07/24); was 7.9% in 02/22 - was 7.8% (07/23); was 7.9% in 02/21)- This visit brings in meds and is on glimepirid e (8mg per day)- NOT on Prandin (had reported that in past) Stopped Trulicity (0.75mg) for nausea. A1c had been 7.1% (06/24)- was 6.9% and had been 8.0% - had 6.6 in 02/2015. Have considered pioglitazo ne for benefit of glucoses and also potentiall y to help fatty liver but no longer appropriat e given episode of heart failure. Previous echo had some abnormalit ies.2017: moderately dilated left atrium with mild concentric LVH. EF= 65%.More recent echo in 2018 still shows intact EF with evidence of aortic sclerosis and some mitral valve issues. Other options: - insulin which has best chance of lowering her a1c to goal but would not help weight loss and would increase risk for lows. - Bromocript ine or Welchol but these won't get a1c down more than 0.5 and both have other s/e. However, welchol has benefit of lowering a1c and LDL (which she needs). Standing orders placed 03/26 Hypothyroidism 88351965 E03.9 TFT to goal - continue on 25 mcg generic. tsh= 3.90 (02/23); was 3.53; Hyperlipidemia 73687805 E78.5 TG and HDL OK -LDL down to 101 (07/24); had been 111 .Given new heart failure, would like it to be lower but she has been unable to tolerate.T ried pravastapatrick n even with coQ10 but had s/e (m/s) Might consider ezetimibe as an option (not absorbed so minimal risk for systemic s/e)Anothe r option is Welchol. Nonalcohol ic steatohepatitis [id number] K75.81 Dx in 2018. told of stage II-III (based on bx). Sees Shraddha. Improving a1c would help. LFTs about the same over past few times. Newer studies with GLP-1 agonists may indicate benefit but short term and small sample sizes. Unfortunat vj, she didn't tolerate Trulicity and not sure she will tolerate other incretins. [id number] Ward Wyman MD Endocrino logy, [address] [address] 10/15/2019 13:24:17 10/17/2019 10:03:11 Uncontrolled type 2 diabetes mellitus 117279314 E11.65 Worse control in spring 2019 (a1c up to 9.3 (09/24) vs 8.4 (02/23)) On glimepirid e 4mg bidCouldn' t tolerate other meds: metformin (h/a), prandin (trouble rememberin g), Trulicity, Byetta (nausea). Also problems with arbose, invokana and damioniaBaldemar e considered pioglitazo ne for benefit of glucoses and also potentiall y to help fatty liver but no longer appropriat e given episode of heart failure. Previous echo had some abnormalit ies. A1c- 9.3 (09/24); was 8.4 (02/23); was 7.1% (07/24); was 7.9% in 02/22 - was 7.8% (07/23); was 7.9% in 02/21). Had been 7.1% (06/24)- was 6.9% and had been 8.0% - had 6.6 in 02/2015. Start insulin at HS. Ask her to check about coverage.W ant to start at 10 units.Will as PAPA Chacko to help with f/u.[facility] Discussed need to work hard on lifestyle choices if she wants to be on insulin only short-term . 2017: moderately dilated left atrium with mild concentric LVH. EF= 65%. More recent echo in 2019 still shows intact EF with evidence of aortic sclerosis and some mitral valve issues. Other options: - Bromocript ine or Welchol but these won't get a1c down more than 0.5 and both have other s/e. However, welchol has benefit of lowering a1c and LDL (which she needs). Standing orders placed 10/25- to be done in december- emphasized need to get every 3 months. Hypothyroidism 06189705 E03.9 TSH= 3.90 (02/23); was 3.53;Lindy nue on 25 mcg generic. Monitor labs and adjust dose prn. Hyperlipidemia 65082913 E78.5 Not on meds- can't tolerateLa st profile was 07/24.TG and HDL OK -LDL down to 101 (07/24); had been 111 . Given new heart failure, would like it to be lower but she has been unable to tolerate.T amador gupta n even with coQ10 but had s/e (m/s) Might be worth trying Welchol- especially if helps her GI sx. Alternativ vj, try ezetimibe (not absorbed so minimal risk for systemic s/e) Nonalcohol ic steatohepatitis [id number] K75.81 Dx in 2018. told of stage II-III (based on bx). Sees Damaris. Improving a1c would help. LFTs about the same over past few times. Newer studies with GLP-1 agonists may indicate benefit. Unfortunat vj, she didn't tolerate Trulicity and not sure she will tolerate other incretins. [id number] Shahnaz Chacko RN, BSN, [facility] , [address] [address] 10/22/2019 10:30:55 10/24/2019 08:48:58 Uncontrolled type 2 diabetes mellitus [id number] E11.65 Spoke with My arzola for diabetes education, kindly referred by Dr. Wyman- A1c 9.3% in September- Blood sugars: She has increased her testing, is working up to before meals and at HS. Fastin - 138 mg/dl, one outlier at 170 mg/dl (8 readings) Pre-lunch: 77 - 155 (4 readings) Pre-dinner : 88 - 158 (3 readings) HS: 97 - 182 mg/dl (4 readings)- Medication s: glimepirid e 4mg BID, sometimes forgets doses. Was recently prescribed Tresiba, but has not started taking it yet. - Hypoglycem ia: none, states that she feels symptoms when she gets into the 80's. Reviewed ID and treatment. - Diet: is on a fluid restrictio n due to CHF, but admits to not following it. and dtr in law do the grocery shopping. States her blood sugars are much better when she has fresh vegetables in her house.- Exercise: Having hip and back pain which is limiting her mobility. Will try chair exercises. - She expressed concern about starting Tresiba, mainly due to the risk for low blood sugars. She felt that 10 units was too high of a dose. Pt case sent to Dr. Wyman, states that she could start at 6 units if pt felt that 10 units was too high.- Reviewed this with pt, along with the increased risks associated with a high A1c, pt is still considerin g the Tresiba. She is also considerin g getting a Revuze Eryn CGM, will call if she wants a prescripti on sent. Reviewed the following: - Appropriat e times to test blood sugar, target blood sugars, evaluation of blood glucose results- Hypoglycem ia identifica tion and management (Rule of 15)- The importance of physical activity, effect of physical activity on blood sugars, goal of 150 minutes of physical activity per week- Tresiba recommenda tions, care, storage, injection. [id number] Ward Wyman MD Endocrino logy, [address] [address] 06/15/2020 12:58:38 08/10/2020 06:47:05 Type 2 diabetes mellitus without complication [id number] E11.9 Much better control with a1c of 7.1 (2); was 6.9 (12/25) but had been 9.3 (09/24) Didn't start insulin and only on glimepirid e. Can't tolerate other meds. A1c 7.9% in 02/22 - was 7.8% (3); was 7.9% in 02/21)- A1c stable but generally up since last year- had been 7.1% (06/24)- was 6.9% and had been 8.0% - had 6.6 in 02/2015. Other options: - Bromocript ine or Welchol but these won't get a1c down more than 0.5 and both have other s/e. Hypothyroidism 87594858 E03.9 TSH= 2.81 (06/28); was 3.90 (02/23); was 3.53; Continue on 25 mcg generic. Monitor labs and adjust dose prn. Uncontroll ed type 2 diabetes mellitus [id number] E11.65 Better control in early 2020 (7.1 in 06/28; was 6.9 in 12/25); Much worse in spring 2019 (a1c up to 9.3 (09/24) vs 8.4 (02/23)) Still on glimepirid e 4mg bid Never went on insulin. Couldn't tolerate other meds: metformin (h/a), prandin (trouble rememberin g), Trulicity, Byetta (nausea). Also problems with arbose, invokana and januvia Have considered pioglitazo ne for benefit of glucoses and also potentiall y to help fatty liver but no longer appropriat e given episode of heart failure. Previous echo had some abnormalit ies. A1c- 9.3 (09/24); was 8.4 (02/23); was 7.1% (07/24); was 7.9% in 02/22 - was 7.8% (07/23); was 7.9% in 02/21). Had been 7.1% (06/24)- was 6.9% and had been 8.0% - had 6.6 in 02/2015. Seeing tobacco educator pharmacist Belén Zambrano. 2020: Told by [facility] that should see surgeon. 2017: Moderately dilated left atrium with mild concentric LVH. EF= 65%. More recent echo in 2018 still shows intact EF with evidence of aortic sclerosis and some mitral valve issues. Other options: - Bromocript ine or Welchol but these won't get a1c down more than 0.5 and both have other s/e. However, welchol has benefit of lowering a1c and LDL (which she needs). Standing orders placed 06/28- to be done in december- emphasized need to get every 3 months. Hyperlipidemia 77225674 E78.5 Not on meds- can't tolerate Last profile was 06/28: 155/84/54/ 80 TG and HDL OK - LDL good at 80; was 101 (07/24); had been 111 . Given new heart failure, would like it to be lower but she has been unable to tolerate. Tried pravastati n even with coQ10 but had s/e (m/s) Might be worth trying Welchol- especially if helps her GI sx. Alternatiramón zabala, try ezetimibe (not absorbed so minimal risk for systemic s/e) Nonalcohol ic steatohepatitis [id number] K75.81 Dx in 2018. told of stage II-III (based on bx). Sees Damaris. Improving a1c would help. LFTs about the same over past few times. Newer studies with GLP-1 agonists may indicate benefit. Unfortunat vj, she didn't tolerate Trulicity and not sure she will tolerate other incretins. [id number] Ward Wyman MD Endocrino logy, [address] [address] 10/14/2020 11:55:53 10/15/2020 19:43:47 Type 2 diabetes mellitus without complication 211935700 E11.9 Much better control with a1c of 6.5% (09/25); was 7.1 (06/28); was 6.9 (12/25) but had been 9.3 (09/24) In past, was 7.9% in 02/22 - was 7.8% (07/23); was 7.9% in 02/21)- A1c stable but generally up since last year- had been 7.1% (06/24)- was 6.9% and had been 8.0% - had 6.6 in 02/2015. Didn't start insulin (as discussed before) and only on glimepirid e. Can't tolerate other meds. Yeast infection on Invokana (would have been excellent option given heart failure) Nausea on Trulicity (would have been good option given RAMEY). - Would like to consider incretin- option of small dose of daily victoza? Talk to Shraddha. Other options: - Bromocript ine or Welchol but these won't get a1c down more than 0.5 and both have other s/e. Hypothyroidism [id number] E03.9 TSH= 3.4 (09/25); was 2.81 (06/28); was 3.90 (02/23); was 3.53; Continue on 25 mcg generic. Monitor labs and adjust dose prn. Uncontroll ed type 2 diabetes mellitus [id number] E11.65 Better control in early 2020 a1c= 6.5 (09/25); was 7.1 (06/28); was 6.9 in 12/25); A1c- 9.3 (09/24); was 8.4 (02/23); was 7.1% (07/24); was 7.9% in 02/22 - was 7.8% (07/23); was 7.9% in 02/21). Had been 7.1% (06/24)- was 6.9% and had been 8.0% - had 6.6 in 02/2015. Still on glimepirid e 4mg bid Never went on insulin. Couldn't tolerate other meds: metformin (h/a), prandin (trouble rememberin g), Trulicity, Byetta (nausea). Also problems with acarbose, invokana (yeast) and januvia Have considered pioglitazo ne (for BG and also potentiall y to help fatty live) but no longer appropriat e given episode of heart failure. Previous echo had some abnormalit ies. Invokana would be hepful given hx of heart failure but she got yeast on it. Seeing tobacco educator pharmacist Belén Y. 2020: Told by CARDS that should see surgeon. She wants 2nd opinion ([place]) 2017: Moderately dilated left atrium with mild concentric LVH. EF= 65%. More recent echo in 2019 still shows intact EF with evidence of aortic sclerosis and some mitral valve issues. Other options: - Bromocript ine or Welchol but these won't get a1c down more than 0.5 and both have other s/e. However, welchol has benefit of lowering a1c and LDL (which she needs). Standing orders placed 06/28- to be done in december- emphasized need to get every 3 months. Hyperlipidemia 25230520 E78.5 Not on meds- can't tolerate Last profile was 09/25: 159-79-57- 86 06/28: 155/84/54/ 80 TG and HDL OK - LDL under 100; was 101 (07/24); had been 111. Given new heart failure, would like it to be lower but she has been unable to tolerate. Tried pravastati n even with coQ10 but had s/e (m/s) Have suggested ezetimibe (not absorbed so minimal risk for systemic s/e) 10/26: Suggested again. She has not wanted to do this. Might be worth trying Welchol- especially if helps her GI sx. Nonalcohol ic steatohepatitis [id number] K75.81 Dx in 2018. told of stage II-III (based on bx). Sees Damaris. Improving a1c would help. LFTs about the same over past few times. Newer studies with GLP-1 agonists may indicate benefit. Unfortunat vj, she didn't tolerate Trulicity and not sure she will tolerate other incretins. [id number] Ward Wyman MD Endocrino logy, [address] [address] 04/16/2021 09:16:16 04/19/2021 14:57:40 Type 2 diabetes mellitus without complication [id number] E11.9 a1c= 7.6 (03/28); was 6.5% (09/25); was 7.1 (06/28); was 6.9 (12/25) but had been 9.3 (09/24) In past, was 7.9% in 02/22 - was 7.8% (07/23); was 7.9% in 02/21)- had been 7.1% (06/24)- was 6.9% and had been 8.0% - had 6.6 in 02/2015.: A1c up. She's willing to re-try INvokana. Had yeast infection on Invokana (would have been excellent option given heart failure).- If gets yeast infection, OK to get Rx for tx. Didn't start insulin (as discussed before) and only on glimepirid e. Can't tolerate other meds. Other options would be incretin. She had nausea on Trulicity (would have been good option given RAMEY).04/08 1: Prefers to try med that will help med (SGLT2i) instead of liver (incretin) Other options: - Bromocript ine or Welchol but these won't get a1c down more than 0.5 and both have other s/e. Hyperlipidemia [id number] E78.5 Not on meds- can't tolerate. Last profile was 09/25: 159-79-57- 86 06/28: 155/84/54/ 80 TG and HDL OK. LDL under 100; was 101 (07/24); had been 111. Given new heart failure, would like it to be lower but she has been unable to tolerate. Tried pravastati n even with coQ10 but had s/e (m/s) Have suggested ezetimibe (not absorbed so minimal risk for systemic s/e) 04/27: Suggested again. Avoiding in part for her GI dx (). Might be worth trying Welchol- especially if helps her GI sx. Hypothyroidism [id number] E03.9 TSH= 2.83 (03/28); 3.4 (09/25); was 2.81 (06/28); was 3.90 (02/23); was 3.53; Continue on 25 mcg generic. Monitor labs and adjust dose prn. Uncontroll ed type 2 diabetes mellitus [id number] E11.65 Worse control in early 2020. a1c= 7.6 (03/28); was 6.5 (09/25); was 7.1 (06/28); was 6.9 in 12/25); A1c- 9.3 (09/24); was 8.4 (02/23); was 7.1% (07/24); was 7.9% in 02/22 - was 7.8% (07/23); was 7.9% in 02/21). Had been 7.1% (06/24)- was 6.9% and had been 8.0% - had 6.6 in 02/2015. Still on glimepirid e 4mg bid Discussed insulin in past. Couldn't tolerate other meds: metformin (h/a), prandin (trouble rememberin g), Trulicity, Byetta (nausea). Also problems with acarbose, invokana (yeast) and januviaWil ling to re-try invokana since might help heart. Seeing tobacco educator pharmacist Belén Zambrano. Seeing cardiology /surgery in [place] but hoping to feel better about options. 2017: Moderately dilated left atrium with mild concentric LVH. EF= 65%. More recent echo in 2019 still shows intact EF with evidence of aortic sclerosis and some mitral valve issues. Other options: - Bromocript ine or Welchol but these won't get a1c down more than 0.5 and both have other s/e. However, welchol has benefit of lowering a1c and LDL (which she needs). Standing orders placed 06/28- to be done in december- emphasized need to get every 3 months. cardiologi doug amaya ([facility]) Nonalcohol ic steatohepatitis [id number] K75.81 Dx in 2018. told of stage II-III (based on bx). Sees Damaris.Kevan e fibrosis noted in past. Improving a1c would help. LFTs about the same over past few times. Newer studies with GLP-1 agonists may indicate benefit. Unfortunat vj, she didn't tolerate Trulicity and not sure she will tolerate other incretins. [id number] Ward Wyman MD Endocrino logy, [address] [address] 12/29/2021 15:34:57 12/31/2021 09:08:42 Type 2 diabetes mellitus without complication [id number] E11.9 a1c= 5.6 (12/27); was 7.8 (06/29); was 7.6 (03/28); was 6.5% (09/25); was 7.1 (06/28); was 6.9 (12/25) but had been 9.3 (09/24) In past, was 7.9% in 02/22 - was 7.8% (3); was 7.9% in 02/21)- had been 7.1% (06/24)- was 6.9% and had been 8.0% - had 6.6 in 02/2015. 12/27: On glimepirid e only.Can't tolerate other meds. Other options (if A1c increases) - Actos (clear with cardilogy) to also help with RAMEY, - Bromocript ine or Welchol but these won't get a1c down more than 0.5 and both have other s/e. Hyperlipidemia 33524965 E78.5 Not on meds- can't tolerate. Last profile was12/27: 116/64/42/ 615/: 159-79-57- 86 06/28: 155/84/54/ 80 TG and HDL OK. LDL under 100; was 101 (07/24); had been 111. Have suggested ezetimibe (not absorbed so minimal risk for systemic s/e) 04/27: Suggested again. Avoiding in part for her GI dx (UC). Might be worth trying Welchol- especially if helps her GI sx.12/27: Given LDL of 61, will monitor for now. Hypothyroidism 53140093 E03.9 TSH= 2.83 (03/28); 3.4 (09/25); was 2.81 (06/28); was 3.90 (02/23); was 3.53; Continue on 25 mcg generic. Monitor labs and adjust dose prn. Nonalcohol ic steatohepatitis [id number] K75.81 Dx in 2017. told of stage II-III (based on bx). Sees Damaris.Kevan e fibrosis noted in past. Improving a1c would help. LFTs about the same over past few times. Newer studies with GLP-1 agonists may indicate benefit. Unfortunat vj, she didn't tolerate Trulicity and not sure she will tolerate other incretins. If EF is as good as reported by patient, might be able to use pioglitazo ne (actos) [id number] Ward Wyman MD Endocrino logy, [address] [address] 08/15/2022 13:34:49 08/18/2022 11:32:11 Type 2 diabetes mellitus without complication 510420528 E11.9 UNCONTROLL ED a1c= 8.5 (07/28) was 5.6 (12/27); was 7.8 (06/29); was 7.6 (03/28); was 6.5% (09/25); was 7.1 (06/28); was 6.9 (12/25) but had been 9.3 (09/24) In past, was 7.9% in 02/22 - was 7.8% (3); was 7.9% in 02/21)- had been 7.1% (06/24)- was 6.9% and had been 8.0% - had 6.6 in 02/2015. 08/28: On glimepirid e only.- Re-try trulicity. If tolerates after a month, try increasing dose (didn't get past 0.75) Other options:- Bromocript ine or Welchol but these won't get a1c down more than 0.5 and both have other s/e. Hyperlipidemia 54645070 E78.5 Not on meds- can't tolerate. Last profile was07/28: 143/93/46/ 7812/27: 116/64/42/ 6109/25: 159-79-57- 86 06/28: 155/84/54/ 80 TG and HDL OK. LDL under 100; was 101 (07/24); had been 111. Have suggested ezetimibe (not absorbed so minimal risk for systemic s/e) 04/27: Suggested again. Avoiding in part for her GI dx (). Might be worth trying Welchol- especially if helps her GI sx.12/27: Given LDL of 61, will monitor for now.08/28: OK LDL at 78. monitor for now. Hypothyroidism 91141436 E03.9 TSH= 8.33 (07/28) was 2.83 (03/28); 3.4 (09/25); was 2.81 (06/28); was 3.90 (02/23); was 3.53; Increase to 50 from 25 mcg generic. Monitor labs and adjust dose prn. Nonalcohol ic steatohepatitis [id number] K75.81 Dx in 2018. told of stage II-III (based on bx). Sees Damaris.Kevan e fibrosis noted in past. Improving a1c would help. LFTs about the same over past few times. Newer studies with GLP-1 agonists may indicate benefit. Unfortunat vj, she didn't tolerate Trulicity and not sure she will tolerate other incretins. 08/28: Willing to try Trulicity again. she thinks nausea improved over time and stopped because low dose didn't affect BG. Uncontroll ed type 2 diabetes mellitus 224708134 E11.65 a1c over 8% (2022) Screening for osteoporosis 769881392 Z13.820 thinks had BMD done in past at [facility]. Try and update. [id number] Ward Wyman MD Endocrino logy, [address] [address] 07/04/2023 14:24:25 07/05/2023 09:06:42 Type 2 diabetes mellitus without complication 853372797 E11.9 UNCONTROLL EDhas evidence of neuropathy a1c= 8.1 (04/29) was 8.5 (07/28) was 5.6 (12/27); was 7.8 (06/29); was 7.6 (03/28); was 6.5% (09/25); was 7.1 (06/28); was 6.9 (12/25) but had been 9.3 (09/24) In past, was 7.9% in 02/22 - was 7.8% (07/23); was 7.9% in 02/21)- had been 7.1% (06/24)- was 6.9% and had been 8.0% - had 6.6 in 02/2015. 07/01: On glimepirid e only.- Re-try trulicity. Other options:- Bromocript ine or Welchol but these won't get a1c down more than 0.5 and both have other s/e. Hyperlipidemia 71783648 E78.5 Not on meds- can't tolerate. Last profile was07/28: 143/93/46/ 7812/27: 116/64/42/ 6109/25: 159-79-57- 86 06/28: 155/84/54/ 80 TG and HDL OK. LDL under 100; was 101 (07/24); had been 111. Have suggested ezetimibe (not absorbed so minimal risk for systemic s/e) 04/27: Suggested again. Avoiding in part for her GI dx (UC). Might be worth trying Welchol- especially if helps her GI sx.12/27: Given LDL of 61, will monitor for now.08/28: OK LDL at 78. monitor for now. Hypothyroidism 99299916 E03.9 TSH= 8.33 (3/23) was 2.83 (03/28); 3.4 (09/25); was 2.81 (06/28); was 3.90 (02/23); was 3.53; Increase to 50 from 25 mcg generic last visit.- update labs. Monitor labs and adjust dose prn. Nonalcohol ic steatohepatitis [id number] K75.81 Dx in 2017. told of stage II-III (based on bx). Sees Damaris.Kevan e fibrosis noted in past. Improving a1c would help. LFTs about the same over past few times. Newer studies with GLP-1 agonists may indicate benefit. Unfortunat vj, she didn't tolerate Trulicity and not sure she will tolerate other incretins. 07/01: Willing to try Trulicity again. she thinks nausea improved over time and stopped because low dose didn't affect BG. Uncontroll ed type 2 diabetes mellitus 326332232 E11.65 has evidence of neuropathy a1c over 8% (2022)a1c= 8.1 (04/29) was 8.5 (07/28) was 5.6 (12/27); was 7.8 (06/29); was 7.6 (03/28); was 6.5% (09/25); was 7.1 (06/28); was 6.9 (12/25) but had been 9.3 (09/24) In past, was 7.9% in 02/22 - was 7.8% (07/23); was 7.9% in 02/21)- had been 7.1% (06/24)- was 6.9% and had been 8.0% - had 6.6 in 02/2015. 07/01: On glimepirid e only.- Re-try trulicity. [id number] Ward Wyman MD Endocrino logy, [address] [address] 01/29/2024 14:51:32 01/30/2024 10:43:31 Uncontrolled type 2 diabetes mellitus [id number] E11.65 [facility] evidence of neuropathy (not controlled ) a1c over 10% (01/29);a1c = 10.8 (10/29); was 8.8 (07/29) was 8.1 (04/29) was 8.5 (07/28) was 5.6 (12/27); was 7.8 (06/29); was 7.6 (03/28); was 6.5% (09/25); was 7.1 (06/28); was 6.9 (12/25) but had been 9.3 (09/24) In past, was 7.9% in 02/22 - was 7.8% (07/23); was 7.9% in 02/21)- had been 7.1% (2)- was 6.9% and had been 8.0% - had 6.6 in 02/2015. 07/01: On glimepirid e only.01/29: tolerating low dose ozempic. Try increase in dose. Hyperlipidemia 23512092 E78.5 Not on meds- can't tolerate.N ot controlled Last profile was07/29: 167/82/51/ 101;07/28: 143/93/46/ 7812/27: 116/64/42/ 6109/25: 159-79-57- 86 06/28: 155/84/54/ 80 TG and HDL OK. LDL under 100; was 101 (07/24); had been 111. Have suggested ezetimibe (not absorbed so minimal risk for systemic s/e) 04/27: Suggested again. Avoiding in part for her GI dx (UC). Might be worth trying Welchol- especially if helps her GI sx.12/27: Given LDL of 61, will monitor for now.08/28: OK LDL at 78. monitor for now.01/29: LDL high. Increases risk for CVD. Hasn't been able to tolerate statins.- Discussed option of PCSK9i. Hypothyroidism 41094310 E03.9 TSH= 3.25 (07/29); was 8.33 (07/28) was 2.83 (03/28); 3.4 (09/25); was 2.81 (06/28); was 3.90 (02/23); was 3.53; Increased to 50 from 25 mcg generic last visit.- Update labs (especiall y given severe fatigue). Monitor labs and adjust dose prn.01/29: extremely fatigued. Update labs and monitor. Adjust dose prn Nonalcohol ic steatohepatitis 703113500 K75.81 Dx in 2018. told of stage II-III (based on bx). Seeselvin Carvajal.Kevan e fibrosis noted in past. Improving a1c would help. LFTs about the same over past few times. Newer studies with GLP-1 agonists may indicate benefit. Unfortunat vj, she didn't tolerate Trulicity and not sure she will tolerate other incretins. ast/alt= 59/41 (07/29); was 28/20 (07/28) 07/01: Willing to try Trulicity again. she thinks nausea improved over time and stopped because low dose didn't affect BG.01/29: Tolerating ozempic 0.25. try increase. [id number] Noel Lange RN Endocrino logy, [address] [address] 03/26/2024 10:34:29 03/28/2024 09:51:30 Uncontrolled type 2 diabetes mellitus [id number] E11.65 Health Concerns Section Related Observation LastModified by Organization Detai ls LastModified Time None Recorded Concern Status LastModified by Organization Details LastModified Time None Recorded Advance Directives Directive None Recorded Payers Encounter Date Sequence Insurance Name Policy Number Policy [place] Covered Member ID [place] Member ID Guarantor Name 12/29/2021 1 [place] [employer] My Timothy Guillermoli [id number] 07 [id number] My Vedovelli 12/29/2021 2 [place] [id number] My Timothy Guillerminavelli [id number] My Vedovelli 08/15/2022 1 [place] [employer] My Timothy Guillerminavelli [id number] 07 [id number] My Vedovelli 08/15/2022 2 [place] [id number] My Timothy Daryadovelli [id number] My Vedovelli 07/04/2023 1 [place] [employer] My Pappas [id number] 07 [id number] P07 My Vedovelli 07/04/2023 2 [facility] [id number] My Lili [id number] My Vedovelli 01/29/2024 1 MED[place]ARE B-[place]: [facility] My Lili [id number] 07 [id number] P07 My Vedovelli 01/29/2024 2 [facility] [id number] My Lili [id number] My Vedovelli 03/26/2024 1 [place] [facility] My Lili [id number] 07 [id number] P07 My Vedovelli 03/26/2024 2 [facility] [id number] My Lili [id number] My Vedovelli Notes Date Note Type Note Provider Name and Address Organization Details Recorded Time 022 text/ht ml DiabetesReported bypatient.Labs:last Hemoglobin A1C: 7-8 (5.6 (12/27); was 7.6 (03/28); was 6.5 (09/25); was 7.1 (06/28); was 6.9 (12/25); was 9.3 (09/24); ); microalbumin/creatinine ratio: 2020 normal (under 12.); serum creatinine: 2021 (creat= 1.2; K= 3.2); LDL 02/23 increasing (61 (12/27); was 87 (03/28); was 86 (09/25); was 80 (06/28); ); Triglycerides at goal; HDL at goal Diabetes Medications:glimepiride (4 mg bid; was 8 mg.); repaglinide (OFF- Not good about remembering.) Renal/HTN Medications:lisinopril (OFF (2021);); metoprolol (varying dose (2021).); Torsemide. Lipid Medications:Not on any lipid meds. Other Medications:ASA (On ASA.); Eliquis since AFib. On torsemide (off lasix). On Colazar (balsalazide) for colitis. No recent prednisone. In past, has been on short courses of steroids (2018). Not recently on prednisone for SOB. In past for bronchitis- not in 2020. GI: Damaris. Review blood sugar:monitoring glucose daily; See below. Associated Symptoms:no increased urinary frequency; no polyuria (On torsemide); no nocturia; no burning or discomfort with urination; no foul odor or discharge; no polydypsia; no blurred vision ([facility] ([facility])- due. Told of cataracts OU.); no weight gain; no weight loss; Weight up/down with fluid. At home, weighs 207 (12/27 but was 203 yesterday); was 213- 215; Cardiac / Eye / Podiatric / Renal / Vascular Symptomscoronary artery disease(Episode of heart failure post- breast surgery 11/23). Told of EF of 60-65%. Had valve surgery (MV replaced, TR repaired and AV repair (2021) with post-op AFib.); no retinopathy (per [facility] (2019);); no numbness of feet (but some other sx. ); no kidney disease; no neuropathy; Pain in past- unclear if vascular or arch pain from plantar fasciitis- also has spurs. Lot of foot pain- toes are aching as primary site. describes metatarsal area too. Likes [employer] brand- doesn't want to go to store. Tried on-line but didn't work out. Hypoglycemia Symptomsfrequency of hypoglycemic episodesinfrequently (Recalls having 60-70s but not in last few weeks.); Severity of hypoglycemic episodes moderate; Dizziness when hypoglycemic (Also lightheaded, dizzy, and fluorescent lights bother her.); Headache when hypoglycemic; Shakey when hypoglycemic (Starts to get jittery as first sx.); Sx: dizzy, h/a and shaky.Notes:MEDICATION INTOLERANCE:INTOLERANT TO: Metformin, sitagliptin, trulicity, jardiance, invokana, acarboseAlso statins. Not clear if tried Zetia. Feels she can't take meds for pain because of reactions. Meter download:B= 120-160 (12/27); was 110-150 (04/27); 12/27: one value in 60s overnight. Feb valuesAM= 83-116;HS= 103-173 HYPERLIPIDEMIA:12/27: 116/: 869-73-68-8710/26: 691-88-49-8606/28: 155/: 170/63/58/99 NAFLD:Told of RAMEY with fibrosis (sees Damaris). 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 LFTs:AST/ALT= 28/ (03/28); was 26/21 (10/26); was 29/25 (06/28); was 34//28 (12/25); was 59/50 (09/24); was 52/46 (02/23); was 89/88 (07/24); was 95/93 (07/23); was 45/38 (ULN = 32/33). OLDER LABS:A1C= was 8.4 (02/23); was 7.1 (07/24); was 7.9 (02/22); was 7.8 (07/23); was 7.9 (12/22)- was 7.1 (06/24)_ was 6.9 (01/21)_ was 8.0% (09/20)_ was 6.6 (01/20)_ LDL= was 99 (02/23); 101 (07/24); was 111 (02/22); was at goal (2016)- PCP is Delmy Vogt (will be leaving).GI is Damaris.BREAST: Vik was surgeon.CARDS: STACIA. Follow-Up: Type 2 diabetes mellitus without complicationFollow-Up: type II diabetes mellitus uncontrolledFollow-Up: hyperlipidemiaFollow-Up: hypothyroidismDiabetes Type IIHypothyroidismLV on 04/16/22Last labs on 09/24/21 A1C - 5.6 (added from [facility]), PT stated thought had done at [facility] on Monday but no values listed.Labs cued for DM & TSH, [id number] blood sugars daily right now.Open heart surgery three valves done 08/19/21, Mini stroke after that 09/24/21PT now has A-Fib DX PMHx: (reverse chronology- most recent -> backwards)12/27: s/p mitral valve (pig), ring in tricuspid and cleaned up aortic. [facility].Post- surgery, had small CVA with no permanent damage. Told of AFib- intermittent but has persisted and planning on cardioversion.04/27: Evaluated by cardiology/surgery at [facility]. Told was borderline for surgery.Cardiology has doubled daily lasix dose. Waiting to hear about day-stay for updating cath. 10/26: GI sx (since summer 2019). rectal pain/bleeding (). No clear foods- likley veggies.Walks- while in stores (maybe 3x/day). Works from home still- hard time breathing in shop. vertigo lately. Uses can sometimes. Fell summer 2019- hurt ribs. yard not flat- fell and rolled. hearing aids soon.10/26: Was recommended for surgery for mitral valve > aortic valve. Increasing SOB.Echo done 07/22- moderately dilated left atrium with mild concentric LVH. EF= 65%.10/26: Told of hearing loss.10/25: Home since 07/18/19. Pulmonary told her to stay home. Hx CHF, HTN,Most recent is GI issues.Over a week- pain with BM Hx of diarrhea and colitis . Saw PCP. on stool softener/fiber (pre-biotic supplement) for fissure. 06/28: has been having vertigo, stomach issues, constipation, tear or fissure in rectum ,stomach cramping MEDICAL CONDITIONS:- T2DM without significant complications on glimepiride. Intolerant to meds- Fatty Liver. 2020: Told of cirrhosis (Damaris).- Intolerance to multiple medications (no statins, etc.)- Fibromyalgia- Benign Hypertension- Hypothyroidism on replacement dose- Sleep apnea on CPAP ([facility] at [facility]). Also sleeps poorly because of pain- back/fibromyalgia/abdominal (left side worse)/night sweats.- AFib (post-cardiac surgery in 2021) 03/28Had seen pharmacist Lance ([facility]) as tobacco educator (monthly). [facility] [address] HYPOTHYROID:Hx of hypothyroid- on generic 25mcgTSH= 2.83 (03/28); was 3.4 (09/25); was 2.81 (06/28); was 3.9 (02/23); was 3.53 (02/22); was 2.98 (07/23); was 3.46 (10/22); was 3.01 (07/22)- was 3.56 (06/24). Had been up to 3.39 (before was 3.26). Takes T4 (25mcg) in AM with water. Has coffee 20-30 minutes later. Has bkst 2 hours later.Weight fluctuates with heart failure and AFib and diuretic tx.No temperature intolerance. More sensitive to both hot and cold.In past, has said she feels hotter this summer even in a/c. But also chilled in a/c.Has Afib.Insomnia- sleeping OK. On CPAP.Energy low.Tremors- none unless low BG. GASTROINTESTINAL:Hx of U/C with chronic bowel issues. Told of fistula but can't address until heart issues addressed.Some bleeding from fistula- none in few weeks.BOWELS: Combination of UC and IBS and fissure. On pepcid.Balsalazide with bouts of colitis. Told in past of anemia (10.7/34.5); Long hx of pain and fibromyalgia. Generally energy mirrors fibromyalgia.Neck/back/hip. Lots of pain - may be GI but may be fibro.Lots of joint pain. Worse when has flares . Has had flare in winter - affects stomach and lungs too.Still on gabapentin (increased dose 4 pills TID).Tried Lyrica- recalls feeling stoned on 75 mg. - also comments on cost of $90.Tried Cymbalta- less stressed but no change in pain. Only on 4 days.Can sometimes take mind off it by going out. Harder during pandemic. Had said she had compression fx (thoracic) with lower arthritis.Had BMD couple of years ago- Thinks done at [facility] and believes it said no change. Recalls osteopenia in past.Never got BMD- Hession is leaving to [place]. Not sure who will take over. Ongoing problems with activity due to other symptoms (asthma, GI, fibromyalgia problems).Also m/s sx: Knees and general aches/pains. Neuro - Has fibromyalgia- Had seen [facility] [employer] (but saw PA once and then saw Aurelio). 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 Other ROS:SOB with making bed.Balance is off too. Tends to fall more left than right. Unsteady on feet. Uses cane.Less sx of Room spinning. Had MRI (after vertigo started)- told of spurs and narrowing. Ward Wyman MD [address] [place] [address], [phone] , [facility] [place]29/[place] 19:18:34 023 text/ht ml DiabetesReported bypatient.Labs:last Hemoglobin A1C: 7-8 (8.5 (07/28). was 5.6 (12/27); was 7.8 (06/29) was 7.6 (03/28); was 6.5 (09/25); was 7.1 (06/28); was 6.9 (12/25); was 9.3 (09/24); ); microalbumin/creatinine ratio: (78.7 (07/28); was BLD (03/28)); serum creatinine: (1.1 (07/28); was 0.9 (03/28); LDL (78 (07/28); was 61 (12/27); was 87 (03/28); was 86 (09/25); was 80 (06/28); ); Triglycerides at goal; HDL at goal Diabetes Medications:glimepiride (4 mg bid; was 8 mg.); repaglinide (OFF- Not good about remembering.) Renal/HTN Medications:lisinopril (OFF (2021);); metoprolol (200mg/day.); Torsemide. Lipid Medications:Not on any lipid meds. Other Medications:ASA (On ASA.); Eliquis since AFib. On torsemide (off lasix). On Colazar (balsalazide) for colitis. No recent prednisone. In past, has been on short courses of steroids (2018). Not recently on prednisone for SOB. In past for bronchitis- not in 2020. GI: Damaris. Review blood sugar:monitoring glucose daily; See below. Associated Symptoms:no increased urinary frequency; no polyuria (On torsemide); no nocturia; no burning or discomfort with urination; no foul odor or discharge; no polydypsia (dry mouth (water pill or CPAP).); no blurred vision ([facility] ([place])- due. Told of cataracts OU.); no weight gain; no weight loss; Weight up/down with fluid. At home, weighs 214 (08/28); was 207 (12/27 but was 203 yesterday); was 213- 215; Cardiac / Eye / Podiatric / Renal / Vascular Symptomscoronary artery disease(Episode of heart failure post- breast surgery 11/23). Told of EF of 60-65%. Had valve surgery (MV replaced, TR repaired and AV repair (2021) with post-op AFib. Clinically hasn't gotten back to baseline. On O2.); no retinopathy (per [facility] (2019);); no numbness of feet (but some other sx. ); no kidney disease; no neuropathy; Lot of foot pain- toes are aching as primary site. describes metatarsal area too. Thinks might be arthritis. Pain in past- not clear if vascular or arch pain from plantar fasciitis- also has spurs. Hypoglycemia Symptomsfrequency of hypoglycemic episodesinfrequently; Dizziness when hypoglycemic (Also lightheaded, dizzy, and fluorescent lights bother her.); Headache when hypoglycemic; Shakey when hypoglycemic (Starts to get jittery as first sx.); Sx: dizzy, h/a and shaky.Notes:MEDICATION INTOLERANCE:INTOLERANT TO: Metformin, sitagliptin, trulicity, jardiance, invokana, acarbose Only tried on 0.75 trulicity- not clear why stopped. Also statins. Not clear if tried Zetia.Feels she can't take meds for pain because of reactions. Meter download:B= 160-240 (mostly 190-240 in past 2-3 weeks); was 120-160 (12/27); was 110-150 (04/27); 12/27: one value in 60s overnight. Jun valuesAM= 83-116;HS= 103-173 HYPERLIPIDEMIA:07/28: 143/93/46/788: 116/: 139-75-07-876: 803-04-48-8606/28: 155/: 170/63/58/99 NAFLD:Told of RAMEY with fibrosis (tesfaye Carvajal). 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 LFTs:AST/ALT= 28/88 (07/28); was 28/21 (03/28); was 26/21 (10/26); was 29/25 (06/28); was 34//28 (12/25); was 59/50 (09/24); was 52/46 (02/23); was 89/88 (07/24); was 95/93 (07/23); was 45/38 (ULN = 32/33). OLDER LABS:A1C= was 8.4 (02/23); was 7.1 (07/24); was 7.9 (02/22); was 7.8 (07/23); was 7.9 (12/22)- was 7.1 (06/24)_ was 6.9 (01/21)_ was 8.0% (09/20)_ was 6.6 (01/20)_ LDL= was 99 (02/23); 101 (07/24); was 111 (02/22); was at goal (2016)- PCP is Edison ([facility])GI is Damaris.BREAST: Vik was surgeon.CARDS: STACIA. Follow-Up: hyperlipidemiaFollow-Up: type II diabetes mellitus uncontrolledFollow-Up: hypothyroidismFollow-Up: Type 2 diabetes mellitus without complicationHypothyroidismDiabetes Type IILV on 12/27Last labs on 07/28 A1C-8.5Labs in place until 12/28PT on Oxygen since . PT had open heart surgery a year ago and just having problems since.Checks blood sugars daily right now. PT uses meter will add to chart, still has trouble with getting strips with the insurance co.PT had laser on right eye a few weeks ago(08/28) and tomorrow has to have left eye done 08/16/22Pt had a cardioversion done last 12/27 and having again this 08/28PT hospitalized a few weeks ago (07/28) for irregular heart rate was there about 6 daysPT would like to talk about blood sugars Open heart surgery three valves done 08/19/21, Mini stroke after that 09/24/21PT now has A-Fib DX PMHx: (reverse chronology- most recent -> backwards)08/28: On O2 since Xmas 04/28. Valve surgery x 3 (MV replace, Tricuspid ring and cleaned aortic) at [facility] (08/27)OD Laser (08/28) and due for OS tomorrow. For pressure.Cardioversion- 12/27 and planned for later in 08/28PT hospitalized a few weeks ago (07/28) for irregular heart rate was there about 6 days 12/27: s/p mitral valve (pig), ring in tricuspid and cleaned up aortic. [facility].Post- surgery, had small CVA with no permanent damage. Told of AFib- intermittent but has persisted and planning on cardioversion.04/27: Evaluated by cardiology/surgery at [facility]. Told was borderline for surgery.Cardiology has doubled daily lasix dose. Waiting to hear about day-stay for updating cath. 10/26: GI sx (since summer 2019). rectal pain/bleeding (Damaris). No clear foods- likley veggies.Walks- while in stores (maybe 3x/day). Works from home still- hard time breathing in shop. vertigo lately. Uses can sometimes. Fell summer 2019- hurt ribs. yard not flat- fell and rolled. hearing aids soon.10/26: Was recommended for surgery for mitral valve > aortic valve. Increasing SOB.Echo done 07/22- moderately dilated left atrium with mild concentric LVH. EF= 65%.10/26: Told of hearing loss.10/25: Home since 07/18/19. Pulmonary told her to stay home. Hx CHF, HTN,Most recent is GI issues.Over a week- pain with BM Hx of diarrhea and colitis . Saw PCP. on stool softener/fiber (pre-biotic supplement) for fissure. 06/28: has been having vertigo, stomach issues, constipation, tear or fissure in rectum ,stomach cramping MEDICAL CONDITIONS:- T2DM without significant complications on glimepiride. Intolerant to meds- Fatty Liver. 2020: Told of cirrhosis (Damaris).- Intolerance to multiple medications (no statins, etc.)- Fibromyalgia- Benign Hypertension- Hypothyroidism on replacement dose- Sleep apnea on CPAP ([facility] at [facility]). Also sleeps poorly because of pain- back/fibromyalgia/abdominal (left side worse)/night sweats.- AFib (post-cardiac surgery in 2021) 03/28Had seen pharmacist Lance ([facility]) as tobacco educator (monthly). [facility] on [address] HYPOTHYROID:Hx of hypothyroid- on generic 25mcgTSH= 8.33 (07/28) was 2.83 (03/28); was 3.4 (09/25); was 2.81 (06/28); was 3.9 (02/23); was 3.53 (02/22); was 2.98 (07/23); was 3.46 (10/22); was 3.01 (07/22)- was 3.56 (06/24). Had been up to 3.39 (before was 3.26). Takes T4 (25mcg) in AM with water. Has coffee 15 minutes later. Has bkst 2 hours later.Weight: At home= 214 (08/28);- Feels metoprolol contributes. Fluctuates with heart failure and AFib and diuretic tx.Temperature intolerance.Has Afib.Insomnia- sleeping OK (metoprolol). Worse if thinks too much. Still on CPAP (new one).Energy low.Tremors- none unless low BG. GASTROINTESTINAL:Hx of U/C with chronic bowel issues.Told of fistula but can't address until heart issues addressed.Some bleeding from fistula- none in few weeks. 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 On pepcid.Balsalazide with bouts of colitis.Knows of fatty liver. Told in past ofanemia(10.7/34.5);Got infusion and only had small improvement. Long hx of pain and fibromyalgia. Generally energy mirrors fibromyalgia.Neck/back/hip. Lots of pain - may be GI but may be fibro.Lots of joint pain. Worse when has flares . Has had flare in winter - affects stomach and lungs too.Still on gabapentin (increased dose 4 pills TID).Tried Lyrica- recalls feeling stoned on 75 mg. - also comments on cost of $90.Tried Cymbalta- less stressed but no change in pain. Only on 4 days.Can sometimes take mind off it by going out. Harder during pandemic. Had said she had compression fx (thoracic) with lower arthritis.Had BMD couple of years ago- Thinks done at [facility] and believes it said no change. Recalls osteopenia in past.Never got BMD- Hession is leaving to [place]. Not sure who will take over.08/28: update BMD ([facility]) Ongoing problems with activity due to other symptoms (asthma, GI, fibromyalgia problems).Also m/s sx: Knees and general aches/pains. Neuro - Has fibromyalgia- Had seen [facility] [employer] (but saw AUBREY once and then saw Aurelio). 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 Other ROS:SOB with making bed. Ward Wyman MD [address] [place] [address], [phone] , [facility] 08/15/2022 15:07:08 024 text/ht ml DiabetesReported bypatient.Labs:last Hemoglobin A1C: 7-8 (8.1 (04/29); was 8.5 (07/28). was 5.6 (12/27); was 7.8 (06/29) was 7.6 (03/28); was 6.5 (09/25); was 7.1 (06/28); was 6.9 (12/25); was 9.3 (09/24); ); microalbumin/creatinine ratio: (none recent; was 78.7 (07/28); was BLD (03/28)); serum creatinine: (0.8 (04/29); was 1.1 (07/28); was 0.9 (03/28); LDL (78 (07/28); was 61 (12/27); was 87 (03/28); was 86 (09/25); was 80 (06/28); ); Triglycerides at goal; HDL at goal Diabetes Medications:glimepiride (4 mg bid; was 8 mg.); repaglinide (OFF- Not good about remembering.); Tried trulicity- too much nausea. Renal/HTN Medications:lisinopril (OFF (2021);); metoprolol (200mg/day.); Torsemide. Lipid Medications:Not on any lipid meds. Trouble with all usual meds. Panel OK in 04/29. Other Medications:ASA (baby ASA.); Eliquis since AFib. On torsemide (off lasix). Digoxin (?for Afib?) On Colazar (balsalazide) for colitis. No recent prednisone. In past, has been on short courses of steroids (2018). Not recently on prednisone for SOB. In past for bronchitis- not in 2020. GI: Damaris. Review blood sugar:monitoring glucose daily; See below. Associated Symptoms:no increased urinary frequency; no polyuria (On torsemide); no nocturia; no burning or discomfort with urination; no foul odor or discharge; no polydypsia (drinks a fair amount- meds give dry mouth. (aslo on CPAP).); no blurred vision ([facility] ([facility])- due this week (07/01). Told of cataracts OU.); no weight gain; no weight loss; WEIGHT: 185 (07/01@home); was 214 (08/28); was 207 (12/27 but was 203 yesterday); was 213- 215; Cardiac / Eye / Podiatric / Renal / Vascular Symptomscoronary artery disease(Episode of heart failure post- breast surgery 11/23). Told of EF of 60-65%. Had valve surgery (MV replaced, TR repaired and AV repair (2021) with post-op AFib. Clinically hasn't gotten back to baseline. On O2.); no retinopathy (per [facility];); no numbness of feet (but some other sx. ); no kidney disease; no neuropathy; Lot of foot pain- worse at rehab- made it worse. spurs and plantar fasciitis. Hypoglycemia Symptomsfrequency of hypoglycemic episodesinfrequently; Dizziness when hypoglycemic (Also lightheaded, dizzy, and fluorescent lights bother her.); Headache when hypoglycemic; Shakey when hypoglycemic (Starts to get jittery as first sx.); Sx: dizzy, h/a and shaky.Notes:MEDICATION INTOLERANCE:INTOLERANT TO: Metformin, sitagliptin, trulicity, jardiance, invokana, acarbose. Tried 0.75 trulicity- had nausea but also other reasons at the time.- might consider re-trying (07/01). Meter download:07/01: date/time off. Meter review during visit:Mostly 200-400 until recently but working on more low-CHO lately and values have come down to < 200 (still higher in PM).B= 160-240 (mostly 190-240 in past 2-3 weeks); was 120-160 (12/27); was 110-150 (04/27);12/27: one value in 60s overnight. Jun valuesAM= 83-116;HS= 103-173 03/28: Had seen pharmacist Lance ([facility]) as tobacco educator (monthly). [facility] on [address] INTOLERANT to statins. Not clear if tried Zetia.Lipid panel at goal on no meds.Feels she can't take meds for pain because of reactions. HYPERLIPIDEMIA:04/29: 144/113/44/773/: 143/93/46/788/22: 116//: 455-77-11-876/: 109-46-78-8606/28: 155//19: 170/63/58/99 NAFLD:Told of RAMEY with fibrosis (tesfaye Carvajal). 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 LFTs:AST/ALT= 50/36 (04/29); was 28/88 (07/28); was 28/21 (03/28); was 26/21 (10/26); was 29/25 (06/28); was 34//28 (12/25); was 59/50 (09/24); was 52/46 (02/23); was 89/88 (07/24); was 95/93 (07/23); was 45/38 (ULN = 32/33). OLDER LABS:A1C= was 8.4 (02/23); was 7.1 (07/24); was 7.9 (02/22); was 7.8 (07/23); was 7.9 (12/22)- was 7.1 (06/24)_ was 6.9 (01/21)_ was 8.0% (09/20)_ was 6.6 (01/20)_ LDL= was 99 (02/23); 101 (07/24); was 111 (02/22); was at goal (2016)- PCP is Edison ([facility])GI is Damaris. colitisBREAST: Vik was surgeon.CARDS: STACIA. MEDICAL CONDITIONS:- T2DM without significant complications on glimepiride. Intolerant to meds. Uncontrolled- Fatty Liver. 2020: Told of cirrhosis (Damaris).- Intolerance to multiple medications (no statins, etc.)- Fibromyalgia- Benign Hypertension- Hypothyroidism on replacement dose- Sleep apnea on CPAP ([facility] at [facility]). Also sleeps poorly because of pain- back/fibromyalgia/abdominal (left side worse)/night sweats.- AFib (post-cardiac surgery in 2021) Open heart surgery three valves done 08/19/21, Mini stroke after that 09/24/21PT now has A-Fib DX PAST MEDICAL Hx (updated):T2DM Hx of arthritis and fibromyalgia (question of lupus). DJD and back problems- limits her physical activity.04/18- Developed got blood clot after long plane ride ([place])- didn? 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 Planning for surgery (PRICING STRATEGIST is Margaret but has been referred to [facility] as PRICING STRATEGIST onc)10/20- Had surgery (removed area and told of clear margin) and told of CURTIS III but got it all . Told of lichen sclerosis too.Echo done 07/22- moderately dilated left atrium with mild concentric LVH. 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 Surgery was 11/23. Woke up with some trouble breathing- told of CHF. Had trouble with fluid restriction. On metoprolol. Still on lisinopril/HCTZ (). Lasix prn. Cardiology is Alfonzo.10/26: Was recommended for surgery for mitral valve > aortic valve. Increasing SOB.12/27: s/p mitral valve (pig), ring in tricuspid and cleaned up aortic. [facility].Post- surgery, had small CVA with no permanent damage. Told of AFib- intermittent but has persisted and planning on cardioversion.08/28: On O2 since Xmas 04/28. Valve surgery x 3 (MV replace, Tricuspid ring and cleaned aortic) at [facility] (08/27)07/01: Not on O2 as much. Ongoing AFib. turned and fell- broke right hip (08/28)- was pinned ([facility])- in pain in rehab (1 month). To [place] ([facility]) and got total hip (03/30). Still using walker.Right foot drop- tripped and fell again (05/31). No fx then. 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 Left knee and also general aches/pains.08/28: Very limited- SOB easily. not adjusting well (he still works).07/01: not much activity d/t hip issues. had PT at home. Hopes to do some outside. FAMILY Hx (updated):Brother from blood clot- about 66. (+) DM. Hx of autoimmune disease (thymus removed as adult).3 sons- alive and well. one has colitis.8 grandchildren- all healthy. One great-grand.07/01: All OK. HYPOTHYROID:Hx of hypothyroid- on generic 50mcg increased in 2022)TSH= 8.33 (07/28) was 2.83 (03/28); was 3.4 (09/25); was 2.81 (06/28); was 3.9 (02/23); was 3.53 (02/22); was 2.98 (07/23); was 3.46 (10/22); was 3.01 (07/22)- was 3.56 (06/24). Had been up to 3.39 (before was 3.26). Takes T4 (25mcg) in AM with water. Has coffee 15 minutes later. Has bkst 2 hours later.No temperature intolerance.Has Afib.Bowels: colitis flare last week but constipated now. Used fiber in water.Insomnia- sleeping OK (metoprolol). Worse if thinks too much. Still on CPAP (new one).Energy- always tired since heart surgery.Tremors- right hand shakes since last surgery GASTROINTESTINAL:Hx of U/C with chronic bowel issues.Told of fistula but can't address until heart issues addressed.Some bleeding from fistula- none in few weeks. 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 On pepcid.Balsalazide with bouts of colitis.Knows of fatty liver. Told in past ofanemia(10.7/34.5);Got infusion and only had small improvement. FIBROMYALGIA: Long hx of pain. Generally energy mirrors fibromyalgia.Neck/back/hip. Lots of pain - may be GI but may be fibro.Lots of joint pain. Worse when has flares . Has had flare in winter - affects stomach and lungs too.Still on gabapentin (increased dose 4 pills TID).Tried Lyrica- recalls feeling stoned on 75 mg. - also comments on cost of $90.Tried Cymbalta- less stressed but no change in pain. Only on 4 days.Can sometimes take mind off it by going out. Harder during pandemic. BONE HEALTH:Had said she had compression fx (thoracic) with lower arthritis.BMD@[facility]= -1.5 (12/28);Left hip= -2.0 (12/28)No change vs. 03/23. 10/26: GI sx (since summer 2019). rectal pain/bleeding (Damaris). No clear foods- likley veggies.Walks- while in stores (maybe 3x/day). Works from home still- hard time breathing in shop. vertigo lately. Uses can sometimes. Fell summer 2019- hurt ribs. yard not flat- fell and rolled. hearing aids soon.Also told of hearing loss.06/28: has been having vertigo, stomach issues, constipation, tear or fissure in rectum ,stomach cramping ROS:Ongoing problems with activity due to other symptoms (asthma, GI, fibromyalgia problems).Also m/s sx: Knees and general aches/pains. Neuro - Has fibromyalgia- Had seen Tiffanie (but saw AUBREY once and then saw Aurelio). Ward Wyman MD [address] [place] [address], [phone] , [facility] 07/04/2023 18:29:50 024 text/ht ml DiabetesReported bypatient.Labs:last Hemoglobin A1C: 7-8 (10.8 (10/29); was 8.8 (07/29) was 8.1 (04/29); was 8.5 (07/28). was 5.6 (12/27); was 7.8 (06/29) was 7.6 (03/28); was 6.5 (09/25); was 7.1 (06/28); was 6.9 (12/25); was 9.3 (09/24); ); microalbumin/creatinine ratio: (8 (07/29) was 78.7 (07/28); was BLD (03/28)); serum creatinine: (0.9 (07/29); was 0.8 (04/29); was 1.1 (07/28); was 0.9 (03/28) Diabetes Medications:glimepiride (4 mg bid; was 8 mg.); repaglinide (OFF- Not good about remembering.); On Ozempic (0.25); was on trulicity- too much nausea and no benefit. Renal/HTN Medications:lisinopril (OFF (2021);); metoprolol (200mg/day.); Torsemide. Lipid Medications:Not on any lipid meds. Trouble with all usual meds. Panel OK in 04/29. Other Medications:ASA (baby ASA.); Eliquis since AFib. On torsemide (off lasix). Digoxin (?for Afib?) On Colazar (balsalazide) for colitis. No recent prednisone. In past, has been on short courses of steroids (2018). Not recently on prednisone for SOB. In past for bronchitis- not in 2020. GI: Damaris. Associated Symptoms:no increased urinary frequency; no polyuria (On torsemide.); no nocturia; no burning or discomfort with urination; no foul odor or discharge; no polydypsia (Drinks a fair amount- diuretic gives dry mouth. (also on CPAP).); no blurred vision ([facility] ([place])- (07/01). cataracts OU out in spring 2023.); WEIGHT (home): 180 (01/29); was 185 (07/01@home); was 214 (08/28); was 207 (12/27 but was 203 yesterday); was 213- 215; Cardiac / Eye / Podiatric / Renal / Vascular Symptomscoronary artery disease(Episode of heart failure post- breast surgery 11/23). Told of EF of 60-65%. Had valve surgery (MV replaced, TR repaired and AV repair (2021) with post-op AFib. Clinically hasn't gotten back to baseline. On O2.); no retinopathy (per [facility];); no numbness of feet (but some other sx. ); no kidney disease; no neuropathy; Ongoing foot pain- arthritis + fibro + small amount of neuropathy ([place]) Hypoglycemia Symptomsfrequency of hypoglycemic episodesinfrequently; Dizziness when hypoglycemic (Also lightheaded, dizzy, and fluorescent lights bother her.); Headache when hypoglycemic; Shaky when hypoglycemic (Starts to get jittery as first sx.); Sx: dizzy, h/a and shaky.Notes:MEDICATION INTOLERANCE:INTOLERANT TO: Metformin, sitagliptin, trulicity, jardiance, invokana, acarbose. Tried 0.75 trulicity- had nausea but also other reasons at the time.- might consider re-trying (07/01).01/29: Tolerating ozempic at 0.25. Some nausea but not bad. Meter review (not connected):01/29: 120-195 (01/29); higher values AM after Dick salad from friend.Other times: 130-300 (01/29);07/01: date/time off. Meter review during visit:Mostly 200-400 until recently but working on more low-CHO lately and values have come down to < 200 (still higher in PM). INTOLERANT to statins. Not clear if tried Zetia.Lipid panel at goal on no meds.Feels she can't take meds for pain because of reactions. HYPERLIPIDEMIA:07/29: 167/82/51/87651: 144/113/44/773: 143/93/46/788/: 116/: 780-02-75-876: 361-15-86-8606/28: 155//: 170/63/58/99 NAFLD:Told of RAMEY with fibrosis (sees Damaris). 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 LFTs:AST/ALT= 59/41 (07/29); was 50/36 (04/29); was 28/88 (07/28); was 28/21 (03/28); was 26/21 (10/26); was 29/25 (06/28); was 34//28 (12/25); was 59/50 (09/24); was 52/46 (02/23); was 89/88 (07/24); was 95/93 (07/23); was 45/38 (ULN = 32/33). OLDER LABS:A1C= was 8.4 (02/23); was 7.1 (07/24); was 7.9 (02/22); was 7.8 (07/23); was 7.9 (12/22)- was 7.1 (06/24)_ was 6.9 (01/21)_ was 8.0% (09/20)_ was 6.6 (01/20)_ LDL= was 99 (02/23); 101 (07/24); was 111 (02/22); was at goal (2016)- HPCP is Audra ([facility])CARDS: STACIA. Will be seeing EP 04/30. [place] not till 07/30.SLEEP: [facility] in [place].GI is Damaris. colitisBREAST: Vik was surgeon. HypothyroidismDiabetes Type IILV on 07/01Last labs on 10/29 A1C-8.8 [facility] about 3 times daily , PT uses meter will add to chartPT is on Ozempic has been off and on taking 2 doses now, taking 0.25 mg weeklyPt has been seeing cardiology PT states is in Afib all the time very fatigued all the time MEDICAL CONDITIONS:- T2DM without significant complications on glimepiride. Intolerant to meds. Uncontrolled- Fatty Liver. 2020: Told of cirrhosis (Damaris).- Intolerance to multiple medications (no statins, etc.)- Fibromyalgia- Benign Hypertension- Hypothyroidism on replacement dose- Sleep apnea on CPAP ([facility] at [facility]). Also sleeps poorly because of pain- back/fibromyalgia/abdominal (left side worse)/night sweats.- AFib (post-cardiac surgery in 2021) Open heart surgery three valves done 08/19/21, Mini stroke after that 09/24/21PT now has A-Fib DX PAST MEDICAL Hx (updated):T2DM Hx of arthritis and fibromyalgia (question of lupus). DJD and back problems- limits her physical activity.04/18- Developed got blood clot after long plane ride ([place])- didn? 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 Planning for surgery (PRICING STRATEGIST is Margaret but has been referred to [facility] as PRICING STRATEGIST onc)10/20- Had surgery (removed area and told of clear margin) and told of CURTIS III but got it all . Told of lichen sclerosis too.Echo done 07/22- moderately dilated left atrium with mild concentric LVH. 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 Surgery was 11/23. Woke up with some trouble breathing- told of CHF. Had trouble with fluid restriction. On metoprolol. Still on lisinopril/HCTZ (). Lasix prn. Cardiology is Alfonzo.10/26: Was recommended for surgery for mitral valve > aortic valve. Increasing SOB.12/27: s/p mitral valve (pig), ring in tricuspid and cleaned up aortic. [facility].Post- surgery, had small CVA with no permanent damage. Told of AFib- intermittent but has persisted and planning on cardioversion.08/28: On O2 since Xmas 04/28. Valve surgery x 3 (MV replace, Tricuspid ring and cleaned aortic) at [facility] (08/27)07/01: Not on O2 as much. Ongoing AFib. turned and fell- broke right hip (08/28)- was pinned ([facility])- in pain in rehab (1 month). To [facility] ([facility]) and got total hip (03/30). Still using walker.Right foot drop- tripped and fell again (05/31). No fx then. 01/29: Afib. Tried electrical tx but not helping. 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 Left knee and also general aches/pains.08/28: Very limited- SOB easily. not adjusting well (he still works).07/01: not much activity d/t hip issues. had PT at home. Hopes to do some outside.01/29: Very tired with chronic AFib. 12 hours at night and naps during day. FAMILY Hx (updated):Brother from blood clot- about 66. (+) DM. Hx of autoimmune disease (thymus removed as adult).3 sons- alive and well. one has colitis.8 grandchildren- all healthy.1 great-grand. 1 year (2023)01/29: All OK. HYPOTHYROID:Hx of hypothyroid- on generic 50mcg increased in 2022)TSH= 3.25 (07/29); was 8.33 (07/28) was 2.83 (03/28); was 3.4 (09/25); was 2.81 (06/28); was 3.9 (02/23); was 3.53 (02/22); was 2.98 (07/23); was 3.46 (10/22); was 3.01 (07/22)- was 3.56 (06/24). Had been up to 3.39 (before was 3.26). Takes T4 (50mcg) in AM with water.Has coffee 15 minutes later (cream). Has bkst 2 hours later.Feels chilled more.Has Afib.No constipation. On Fe. Recently, more diarrhea.Bowels: colitis flare last week but constipated now. Used fiber in water.Some nausea from ozempic.Sleeping a lot. 12 hours and then naps during day. Ever since heart surgery (valves).On metoprolol. 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 On pepcid.Balsalazide with bouts of colitis.Knows of fatty liver. Told in past ofanemia(10.7/34.5);Got infusion and only had small improvement. FIBROMYALGIA: Long hx of pain. Generally energy mirrors fibromyalgia.Neck/back/hip. Lots of pain - may be GI but may be fibro.Lots of joint pain. Worse when has flares . Has had flare in winter - affects stomach and lungs too.Still on gabapentin (increased dose 4 pills TID).Tried Lyrica- recalls feeling stoned on 75 mg. - also comments on cost of $90.Tried Cymbalta- less stressed but no change in pain. Only on 4 days.Can sometimes take mind off it by going out. Harder during pandemic.01/29: gabapentin helps some. I'd be afraid not to take it . BONE HEALTH:Had said she had compression fx (thoracic) with lower arthritis.BMD@[facility]= -1.5 (12/28);Left hip= -2.0 (12/28)No change vs. 03/23. 10/26: GI sx (since summer 2019). rectal pain/bleeding (Damaris). No clear foods- likley veggies.Walks- while in stores (maybe 3x/day). Works from home still- hard time breathing in shop. vertigo lately. Uses can sometimes. Fell summer 2019- hurt ribs. yard not flat- fell and rolled. hearing aids soon.Also told of hearing loss.06/28: has been having vertigo, stomach issues, constipation, tear or fissure in rectum ,stomach cramping ROS:Ongoing problems with activity due to other symptoms (asthma, GI, fibromyalgia problems).Also m/s sx: Knees and general aches/pains. Neuro - Has fibromyalgia- Had seen Tiffanie (but saw AUBREY once and then saw Aurelio). Ward Wyman MD [address] [place] [address], [phone] , [facility] [place]/29/2024 18:45:15 024 text/ht ml Seen By Dr Wyman 01/2024 - on Ozempic 0.25 mg - try to increase dose and follow up with ENDO RN 2 monthsPt concerns for visit with nursing today are -Here for Glucometer interpretation by Dr Wyman med adjustment. Last HgbA1c - ( was )07/22/2022 8.5 % 8.8 %---(most recent)-------01/30/2024 8.1 % Diabetic medications and current doses:1.)- Ozempic 0.5 mg weekly - nausea, h/a, slow motility -will try Miralax daily - s/e are lessening as weeks go by2.)- Glimepiride 4 mg BID - before breakfast and before dinner. Barriers to taking any meds? Forgets Glimeperide 4 times weekly Meal times/ typical meal includes: no special dietWakes 10- 11Am - coffee w/cream non dairy and SteviaBreakfast : 12- 1PM - scrambled egg and martiniquais muffin or toast - sometimes all fruit all jam, coffeeSnack : mid afternoon - 3 hrs after breakfast - 3 PM - fruit- bowl of grapes and yogurt, zero sugar sodaSnack: couple hrs sometimes before dinner - pretzels or nutsDinner: 7 PM - 8 PM - protein, starch and veggie, waterSnack: on occasionally - SF Fudgicles or SF jello or reg 3 Ang eliazar chocolatesHS : 11Pm - 12 MDN- no awakening for snack Exercise routine : none - starting PT for falls and has HX of FX hip - 1 year ago - ? osteoporosis - ? needs treatmentRecent illness: Mitral valve, tricuspid valve and aorta cleaned up replaced 2021 seen by cardiology for A- Fib - had cardioversion that worked in the office but it failed that night and went back into A- FIB Glucometer reveals :Has meter to check blood sugars - checks almost every AMFasting reveals -167 -(had chocolates),178,157,142,187,155,294,1 54,136,147,162,140,178,214,179,335,17 9,172,193,214,120 New insulin dosing : Increase to Ozempic 1 mg - Rtc May 2024 RN /MD appt and lab in April 2024 Reviewed S/S hypoglycemia - handout given, reviewed how/when to treat ? discussed NV with MD - 08/05/24 2:00 PM - [facility] [place] NV with Nursing -RTC May with RN for repeat Blood sugar review - bring diary of Blood sugars and put pill box in with [employer] utensils. RX's sent to pharmacy - If none - refills needed on any meds ? Ozempic 1 mg Lab orders - standing orders in place until 01/2025 DME forms completed? n/a Nurse : Artis Lange, ESMER Lange RN [facility] 03/26/2024 15:28:55 OBGyn Episode No OBEpisode recorded.
== END 2024-07-15 13:38 | disposition home or self-care (01) ==
PROVIDERS: PCP Internal Medicine; Visit Provider Hospitalist
DX: J44.9 Chronic obstructive pulmonary disease, unspecified (principal); J98.4 Other disorders of lung; R91.8 Other nonspecific abnormal finding of lung field; I27.20 Pulmonary hypertension, unspecified; I38 Endocarditis, valve unspecified; J40 Bronchitis, not specified as acute or chronic
CPT/HCPCS: 99214; G2211

== ENCOUNTER → 2024-07-15 12:56 | Outpatient (BNVA) | payer MEDICARE, SELFPAY | PROVIDERS: PCP Internal Medicine; Visit Provider Hospitalist | DX: J44.9 Chronic obstructive pulmonary disease, unspecified (principal); J98.4 Other disorders of lung; J40 Bronchitis, not specified as acute or chronic; R91.8 Other nonspecific abnormal finding of lung field; I27.20 Pulmonary hypertension, unspecified; I38 Endocarditis, valve unspecified | CPT/HCPCS: 99212 ==

== ENCOUNTER 2024-11-05 12:43 | Outpatient (AMB) | payer MEDICARE, SELFPAY ==
--- OUTSIDE RECORDS SUMMARY | 2024-10-31 23:59 | XMS_ITS | Continuity of Care Document ---
Author Organization [facility] Address [address] [place] [address]- Care Team Providers Care Agitator Operator Name Role Phone Not on Staff, PCP Primary Care Physician Unavail able [facility]counter [facility] [id number] Date(s): 10/01/24 - 10/31/[address] [id number] [[email or web address] Encounter Type: Triage Allergies, Adverse Reactions, Alerts No Known Allergies Immunizations Given and Recorded Vaccine Date Status Refusal Reason SARS-CoV-2 (COVID-19) mRNA-1273 vaccine 03/11/21 R ecorded SARS-CoV-2 (COVID-19) mRNA-1273 vaccine 06/20/20 R ecorded Medications acetaminophen 325 mg oral tablet 975 mg, By Mouth, Every 6 hours, Refills 0, Maintenance, 09/02/22 9:42:00 AM EDT, Partial fill upon patient request if the prescription is for a schedule II opioid drug. Start Date: 09/02/22 Status: Ordered Repeat number: 1 albuterol CFC free 90 mcg/inh inhalation aerosol 1 puffs, Inhalation, 4 times a day, PRN for wheezing, # 18 Gm, 0 Refills, Maintenance, 09/02/13 3:31:23 PM EDT, Aerosol Start Date: 09/02/13 Status: Ordered Quantity: 18.0 Unit: g Repeat number: 1 apixaban 5 mg oral tablet = 5 mg, By Mouth, 2 times a day, # 180 tablet, 3 Refills, Maintenance, 09/18/24 9:49:00 AM EDT, Tablet, [facility], Partial fill upon patient request if the prescription is for a schedule II opioid drug., 173, cm, 08/29/24 14:09:00 EDT, Height, 88.3, kg, 01/18/24 8:37:00 EDT, Dry Weight Start Date: 09/18/24 Status: Ordered Quantity: 180.0 Unit: tablet Repeat number: 4 Aspirin Low Dose 81 mg oral tablet 1 tablet = 81 mg, By Mouth, Daily, 0 Refills, Maintenance, 09/02/13 3:27:22 PM EDT Start Date: 09/02/13 Status: Ordered Repeat number: 1 cetirizine 10 mg oral tablet 1 tablet = 10 mg, By Mouth, Daily, # 30 tablet, 0 Refills, Maintenance, 10/08/24 3:06:00 PM EDT, [id number], Partial fill upon patient request if the prescription is for a schedule II opioid drug., 173, cm, 10/08/24 14:35:00 EDT, Height, 88.3, kg, 01/18/24 8:37:00 EDT, Dry Weight Start Date: 10/08/24 Status: Ordered Quantity: 30.0 Unit: tablet Repeat number: 1 clobetasol topical 0.05% ointment See Instructions, 1 application Topically 2 times a week, # 45 Gm, 5 Refills, Maintenance, 03/06/1512:05:18 PM EDT, Ointment, [facility], 1 application Topically 2 times a week Start Date: 03/06/15 Status: Ordered Quantity: 45.0 Unit: g Repeat number: 6 Colazal 750 mg oral capsule 3 capsule = 2,250 mg, By Mouth, 3 times a day, pt ususally takes it once a day unless diarrhea and pain takes it up to 3 times a day, # 504 capsule, 0 Refills, Maintenance, 11/18/18 9:30:20 PM EDT, Capsule Start Date: 11/18/18 Status: Ordered Quantity: 504.0 Unit: capsule Repeat number: 1 digoxin 0.125 mg oral tablet 125 mcg, 1, tablet, By Mouth, Daily, # 90 tablet, Refills 3, Tot. Refills 3, Maintenance, 05/13/24 10:31:00 AM EST, Route to Pharmacy Electronically, [facility], Partial fill upon patient request if the prescription is for a schedule II opioid drug., 173, cm, 04/08/24 11:16:00 EST, Height, 88.3, kg, 01/18/24 8:37:00 EDT, Dry Weight Start Date: 05/13/24 Status: Ordered Quantity: 90.0 Unit: tablet Repeat number: 4 Indications: Unspecified diastolic (congestive) heart failure; ferrous sulfate 325 mg oral enteric coated tablet 325 mg, 1, tablet, By Mouth, 2 times a day, may take with food to minimize abdominal discomfort, # 180 tablet, Refills 3, Tot. Refills 3, Maintenance, 09/27/22 1:12:00 PM EDT, Route to Pharmacy Electronically, [facility], Partial fill upon patient request if the prescription is for a schedule II opioid drug., 170, cm, 09/27/22 12:53:00 EDT, Height, 97.7, kg, 09/04/22 13:05:00 EDT, Dry Weight Start Date: 09/27/22 Stop Date: 09/22/23 Status: Ordered Quantity: 180.0 Unit: tablet Repeat number: 4 gabapentin 100 mg oral capsule 300 mg, 3, capsule, By Mouth, 3 times a day, # 90 capsule, Refills 0, Maintenance, 08/22/17 9:28:37 AM EDT Start Date: 08/22/17 Status: Ordered Quantity: 90.0 Unit: capsule Repeat number: 1 glimepiride 4 mg oral tablet 1 tablet = 4 mg, By Mouth, 2 times a day, # 30 tablet, 0 Refills, Maintenance, 08/22/17 9:25:17 AM EDT, Tablet Start Date: 08/22/17 Status: Ordered Quantity: 30.0 Unit: tablet Repeat number: 1 levothyroxine 0.025 mg oral tablet 1 tablet = 0.025 mg, By Mouth, Daily, # 90 tablet, 1 Refills, Maintenance, 06/24/11 2:31:23 PM EST, Tablet Start Date: 06/24/11 Status: Ordered Quantity: 90.0 Unit: tablet Repeat number: 2 Lexapro 10 mg oral tablet 1 tablet = 10 mg, By Mouth, Daily, # 30 tablet, 0 Refills, Maintenance, 08/09/21 12:59:00 PM EDT, Tablet, Partial fill upon patient request if the prescription is for a schedule II opioid drug. Start Date: 08/09/21 Status: Ordered Quantity: 30.0 Unit: tablet Repeat number: 1 metoprolol 100 mg oral tablet 100 mg, 1, tablet, By Mouth, 2 times a day, # 180 tablet, Refills 3, Tot. Refills 3, Maintenance, 09/25/24 3:35:00 PM EDT, Route to Pharmacy Electronically, [facility], Partial fill upon patient request if the prescription is for a schedule II opioid drug., 173, cm, 08/29/24 14:09:00 EDT, Height, 88.3, kg, 01/18/24 8:37:00 EDT, Dry Weight Start Date: 09/25/24 Status: Ordered Quantity: 180.0 Unit: tablet Repeat number: 4 Ozempic = 0.5 mg, Subcutaneous Infusion, Every week, 0 Refills, Maintenance, 12/11/23 1:31:00 PM EDT, Partialfill upon patient request if the prescription is for a schedule II opioid drug. Start Date: 12/11/23 Status: Ordered Repeat number: 1 Pepcid 20 mg oral tablet 1 tablet = 20 mg, By Mouth, 2 times a day, 0 Refills, Maintenance, 01/21/20 4:10:00 PM EDT Start Date: 01/21/20 Status: Ordered Repeat number: 1 Potassium Chloride (Eqv-K-Tab) 20 mEq oral tablet, extended release 1 tablet = 20 mEq, By Mouth, 2 times a day, # 180 tablet, 1 Refills, Maintenance, 06/19/24 9:10:00 AM EST, ER Tablet, [facility], Partial fill upon patient request if the prescription is for a schedule II opioid drug., 173, cm, 06/18/24 16:23:00 EST, Height, 88.3, kg, 248:37:00 EDT, Dry Weight Start Date: 06/19/24 Status: Ordered Quantity: 180.0 Unit: tablet Repeat number: 2 torsemide 20 mg oral tablet See Instructions, 40 mg, 2 tablets, in AM 20 mg, 1 tablet, in PM, # 270 tablet, 3 Refills, Maintenance, 09/10/24 12:49:00 PM EDT, Tablet, [facility], Partial fill upon patient request if the prescription is for a schedule II opioid drug., 173, cm, 08/29/24 14:09:00 EDT, Height,88.3, kg, 01/18/24 8:37:00 EDT, Dry Weight Start Date: 09/10/24 Status: Ordered Quantity: 270.0 Unit: tablet Repeat number: 4 Vagifem 10 mcg vaginal tablet See Instructions, 1 tablet Vaginally - WED and SAT, 0 Refills, Maintenance, 10/08/18 2:02:48 PM EDT Start Date: 10/08/18 Status: Ordered Repeat number: 1 Vitamin D3 2000 intl units oral capsule 1 capsule = 2,000 International_Units, By Mouth, Daily in AM, 0 Refills, Maintenance, 09/02/13 3:27:06 PM EDT Start Date: 09/02/13 Status: Ordered Repeat number: 1 Problem List Condition Confirmation Course Effective Dates Status H ealth Status Informant PAF Confirmed Active Benign hypertension Confirmed 1992 Active Phyllodes tumor, benign Confirmed Active Degenerative disc disease, lumbar (L5-S1) Confirmed Active Fibromyalgia Confirmed 1992 Active H/O ulcerative colitis Confirmed Active (HFpEF) heart failure with preserved ejection fraction Confirmed Active S/P MVR (mitral valve replacement) Confirmed Active Hypothyroidism Confirmed Active DOMENICO on CPAP (sleep study-2006) Confirmed Active Pulmonary hypertension Confirmed Active Superficial thrombophlebitis of right leg, S/P anticoagulation treatment. 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 Social History Social History Type Response Smoking Status Never smoker entered on: 09/02/13 Sex Sex Representation Female (finding) Patient Care team information Care Team Personnel Name: Allison Devlin RN Position: [facility] AMB Nurse Member Role: Primary Care Nurse Name: Brie Abel RN Position: [facility] RN Member Role: Primary Care Nurse Name: Not on Staff, PCP Position: [facility] Physician (General Medicine) Member Role: PCP Care Team Related Persons Name: DONIS CANO Name: SHILPI CANO Insurance Providers Guarantor name: ARCADIO THOMASELLY Health Plan Information #: 1 Payer: MEDICARE B Payer Identifier: NA Member Number: [id number] Group Number: [id number] Subscriber Identifier: [id number] Relationship to Subscriber: self Coverage Type: NA Coverage Verification Date: NA Telecom: NA Address: [facility] Plan Information #: 2 Payer: MEDEX SECONDARY ONLY Payer Identifier: NAYA Member Number: [id number] Group Number: [id number] Subscriber Identifier: [id number] Relationship to Subscriber: self Coverage Type: Medicare Other Coverage Verification Date: NAYA Telecom: NA Address:
--- NOTE | 2024-11-05 13:00 | MHC.OFFVIS ---
Vital Signs 11/05/24 13:01 Height 5 ft 8 in Weight 187 lb 8 oz BMI 28.5 BP 118/62 Blood Pressure Location Rt brachial Position Sitting Pulse 91 Pulse Source Pulse Oximeter Pulse Oximetry (%) 95 Oxygen Delivery Method Room Air Intake Visit Reasons: Cough prod, fever Allergies No Known Allergies Allergy (Verified 11/05/24 13:05) HPI HPI Cough prod, fever: Details: My is a pleasant 79 year old female, never smoker, with underlying asthma, COPD, atrial fibrillation on Eliquis, and DOMENICO on CPAP. At baseline is moderately controlled on albuterol MDI/neb. She is under the care of Dr. Ahumada and presents for an acute visit today. She reports worsening symptoms suggestive of pneumonia. The symptoms began in early October and have progressively worsened, with the patient experiencing high fevers reaching almost 102?F, productive cough with yellow-green sputum, and body aches. The patient denies chest tightness and wheezing, and she has not been using albuterol or any other respiratory medications, as her current prescription is . The patient has a history of anemia, for which she received a blood transfusion approximately three weeks ago due to severe anemia with a hemoglobin level of 6.7 g/dL. She is scheduled to see a career services representative to investigate potential sources of bleeding. The patient was diagnosed with a urinary tract infection during recent lab work and is currently on a course of amoxicillin which she started three days ago. She reports no gastrointestinal upset from the medication. The patient has a history of atrial fibrillation and is scheduled for an ablation however was postponed due to her weakened state through research associate molecular biology in [place]. [facility] Medical History (Updated 11/05/24 @ 13:44 by Rosa Pierce NP) Valvular heart disease Pulmonary hypertension Pulmonary nodules Valvular heart disease Asthma Chronic restrictive lung disease COPD (chronic obstructive pulmonary disease) Social History Patient Tobacco Use Status: Never used Tobacco Review of Systems Const Denies chills, Denies excessive sweating, Denies headache(s) and Denies night sweats Eyes Denies dry eyes, Denies irritation and Denies itchy eyes ENT Reports Normal hearing present, Denies headache(s), Denies nasal congestion, Denies nasal discharge, Denies post nasal drip and Denies sore throat Card Denies chest pain, Denies chest pain at rest, Denies chest pain with activity, Denies claudication, Denies leg edema, Denies orthopnea and Denies paroxysmal nocturnal dyspnea Resp Denies stridor and Denies wheezing Musc Denies myalgias Neuro Reports Normal hearing present and Denies headache(s) Endo Denies excessive sweating Stoney/Lymph Denies lymphadenopathy Aller/Immun Denies itchy eyes, Denies seasonal rhinorrhea and Denies wheezing Physical Exam Vital Signs: Last Vital Signs Pulse 91 11/05/24 13:01 BP 118/62 11/05/24 13:01 Pulse Ox 95 11/05/24 13:01 Oxygen Delivery Method Room Air 11/05/24 13:01 BMI result Body Mass Index 28.5 Const General: cooperative, well developed and alert Orientation/consciousness: patient oriented x3 Limitations: no limitations HEENT Head: Yes normal to inspection, Yes normocephalic and Yes atraumatic Ears: hearing grossly normal bilaterally and external ears normal Eyes General: appearance normal, both eyes and all related structures Eyelids: Yes eyelids normal Sclerae: sclerae normal EOM: EOMs intact bilaterally Neck Neck: Yes normal visual inspection and Yes no lymphadenopathy Lymphatic: no lymphadenopathy noted Chest Chest palpation & inspection: normal inspection of the chest Resp Effort & Inspection: normal respiratory effort, able to speak in complete sentences, no audible wheezes, no stridor, not tachypneic, no tripod positioning and no use of accessory muscles Auscultation: crackles (inspiratory crackles LLL) on the left Cardio Jugular venous distension: no JVD Rate: regular rate Skin Other: warm, dry General skin exam: no rashes or lesions noted Neuro General: patient oriented x3 Cranial nerves: Yes Normal hearing present Cognition (Neuro): normal cognition Gait exam (Neuro): Normal gait present Extrem General: Yes normal to inspection, Yes capillary refill normal, Yes no clubbing, cyanosis or edema and Yes no pedal edema Psych Appearance: grossly normal and well kempt Speech and movement: Normal speech and movement present and Clear speech present Affect: normal affect Attitude: cooperative Thought process: Normal thought process present Thought content: Normal thought content present Insight: Good insight present (Psych) Judgement: Good judgement present (Psych) Assessment & Plan Assessment & Plan (1) Bronchopneumonia: Code(s): J18.0 - Bronchopneumonia, unspecified organism Category: Medical (2) Asthma: Code(s): J45.909 - Unspecified asthma, uncomplicated Category: Medical Qualifiers: Asthma complication type: uncomplicated Asthma persistence: intermittent Asthma severity: mild Qualified Code(s): J45.20 - Mild intermittent asthma, uncomplicated (3) COPD (chronic obstructive pulmonary disease): Code(s): J44.9 - Chronic obstructive pulmonary disease, unspecified Category: Medical Plan Discussed with the patient the diagnosis of bronchopneumonia and the plan to treat it with Augmentin. Emphasized the importance of seeking emergency care if symptoms worsen, particularly due to the risk of systemic infection or anemia-related complications. We reviewed the need for follow-up with a career services representative to address potential sources of bleeding. Advised the patient to continue using Tylenol for fever and to use albuterol as needed as well as tessalon perles. We discussed scheduling a follow-up appointment before the rescheduled ablation procedure to ensure pneumonia resolution. All questions were answered and patient is in agreement of plan. Will follow up in 4-6 weeks or sooner if needed. Medications: New benzonatate 100 mg PO BID-TID PRN 30 caps 0RF cough amoxicillin-pot clavulanate 875-125 mg 1 tab PO Q12H 20 tabs 0RF Refilled albuterol sulfate 90 mcg/actuation 2 inhalations inhalation Q6H PRN 3 ea 3RF shortness of breath or wheezing 90 days J44.9 - Chronic obstructive pulmonary disease, unspecified albuterol sulfate 2.5 mg (3 mL) inhalation Q4H PRN 540 mL 3RF shortness of breath or wheezing 90 days J44.9 - Chronic obstructive pulmonary disease, unspecified Coding Level of Care Code Est Pt Level 4 (78035) Complex EM visit Add On G2211 Diagnoses Bronchopneumonia J18.0 Mild intermittent asthma without complication J45.20 Asthma complication type: uncomplicated Asthma persistence: intermittent Asthma severity: mild COPD (chronic obstructive pulmonary disease) J44.9
[2024-11-05 13:01] VITALS: BP 118/62; PULSE 91; O2SAT 95; BMI 28.5
--- OUTSIDE RECORDS SUMMARY | 2024-11-05 13:37 | XMS_ITS | Data Portability ---
Author Organization 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 GI: Damaris [...] (non-HDL too). 01/29: increase ozempic. update labs. [email or web address] Not available 01/29/2024 18:40:13 08/06/2024 08/06/2024 PCP is Edison Crumpfield); thinks Ynes is supervising MD. GI: Damaris [...] dose ozempic. Increase dose. f/u ENDO RN. 08/30: increase ozempic to 2mg. 2) RAMEY with fibrosis (per Damaris)- 2017. Meds that might RAMEY would be either incretins or TZD (pioglitazone). Couldn't use pioglitazone given hx of CHF. 01/29: Continue with Ozempic- try and increase dose. 08/30: Increase ozempic 2mg. 3) HEART FAILURE: post-op (11/23) but EF reportedly better 2021. Can't tolerate SGLT2i. 4) HYPOTHYROID: On small dose replacement () 08/28: TSH up- can try increasing dose to 50 07/01: update labs on 50mcg. 01/29: update since very fatigued 08/30: stable 5) FIBROMYALGIA- increases complexity Dx (2018): Breast [...] specialists, ER staff. Time spent: 42 (minutes) 08/30 08/28: - Increase T4 25 to 50 [...] (non-HDL too). 01/29: increase ozempic. update labs. 08/30: increase ozempic. [email or web address] Not available 08/08/2024 04:56:20 10/23/2024 10/23/2024 PCP is Ediosn BishopOrofino); thinks Ynes is supervising MD. GI: Damaris [...] dose ozempic. Increase dose. f/u ENDO RN. 08/30: increase ozempic to 2mg. 2) RAMEY with fibrosis (per Damaris)- 2017. Meds that might RAMEY would be either incretins or TZD (pioglitazone). Couldn't use pioglitazone given hx of CHF. 01/29: Continue with Ozempic- try and increase dose. 08/30: Increase ozempic 2mg. 3) HEART FAILURE: post-op (11/23) but EF reportedly better 2021. Can't tolerate SGLT2i. 4) HYPOTHYROID: On small dose replacement () 08/28: TSH up- can try increasing dose to 50 07/01: update labs on 50mcg. 01/29: update since very fatigued 08/30: stable 5) FIBROMYALGIA- increases complexity Dx (2018): Breast [...] specialists, ER staff. Time spent: 42 (minutes) 08/30 08/28: - Increase T4 25 to 50 [...] (non-HDL too). 01/29: increase ozempic. update labs. 08/30: increase ozempic. 10/30: try mounjaro 5mg instead of ozempic to see if any less constipating. [email or web address] Not available 10/23/2024 12:06:36 Plan of Treatment Reminders Order Date Submit Date Provider Last Modified By Organization Details Last Modified Time Details Appointments Follow Up, 40 2024 01:30P M Ward Wyman MD Not available Not available Not available Lab HbA1c (hemog lobin A1c), blood 2024 025 [facility], [address] [place], [address], 10/11/2024 13:44:45 CMP, serum or plasma 2024 025 [facility], [address] [place], [address], 10/09/2024 14:06:16 microa lbumin /creat inine, ratio panel, urine 2024 025 [facility], [address] [place], [address], 10/09/2024 15:37:14 CMP, serum or plasma 2024 025 [facility], [address] [place], [address], 10/09/2024 14:06:16 microa lbumin /creat inine, ratio panel, urine 2024 025 [facility], [address] [place], [address], 10/09/2024 15:37:14 HbA1c (hemog lobin A1c), blood 2024 025 [facility], [address] [place], [address], 10/11/2024 13:44:45 lipid panel, serum 2024 025 [facility], [address] [place], [address], 10/09/2024 14:06:17 lipid panel, serum 2024 025 [facility], [address] [place], [address], 10/09/2024 14:06:17 TSH, serum or plasma 2024 025 [facility], [address] [place], [address], 10/09/2024 15:37:13 T4, free, serum 2024 025 [facility], [address] [place], [address], 10/09/2024 15:37:13 TSH, serum or plasma 2024 025 [facility], [address] [place], [address], 10/09/2024 15:37:13 T4, free, serum 2024 025 [facility], [address] [place], [address], 10/09/2024 15:37:13 HbA1c (hemog lobin A1c), blood 2023 024 [facility], [address], [place], [address], 02/09/2024 21:27:01 CMP, serum or plasma 2023 024 [facility], [address], [place], [address], 02/09/2024 21:26:59 microa lbumin /creat inine, ratio panel, urine 2023 [facility], [address] [place], [id number], 01/30/2024 09:04:26 CMP, serum or plasma 2023 025 [facility], [address] [place], [id number], 02/09/2024 21:26:58 HbA1c (hemog lobin A1c), blood 2023 024 [facility], [address] [place], [id number], 07/05/2024 06:07:42 HbA1c (hemog lobin A1c), blood 2024 025 [facility], [address] [facility], [id number], 07/05/2024 06:07:42 lipid panel, serum 2023 024 [facility], [address] [place], [id number], 02/09/2024 21:26:59 lipid panel, serum 2023 025 [facility], [address] [facility], [id number], 02/09/2024 21:26:59 TSH, serum or plasma 2023 024 [facility], [address] [place], [id number], 01/30/2024 09:04:25 T4, free, serum 2023 024 [facility], [address] [facility], [id number], 01/30/2024 09:04:25 HbA1c (hemog lobin A1c), blood 2023 024 [facility], [address] [place], [address], 08/01/2024 14:48:04 CMP, serum or plasma 2023 024 [facility], [address] [place], [address], 08/02/2023 14:06:54 lipid panel, serum 2023 024 [facility], [address] [place], [address], 08/01/2024 14:47:45 T4, free, serum 2023 024 [facility], [address] [place], [address], 08/02/2023 14:07:05 Referral None record ed. Procedures None record ed. Surgeries None record ed. Imaging None record ed. Medication Orders Mounja ro 5 mg/0.5 mL subcut aneous pen inject or 2024 025 ATHENAFAX [facility] [place], [address], 10/23/2024 12:25:25 Ozempi c 2 mg/dos e (8 mg/3 mL) subcut aneous pen inject or 2024 025 [facility] [place], [address], 10/23/2024 11:16:16 Ozempi c 1 mg/dos e (4 mg/3 mL) subcut aneous pen inject or 2023 024 [email or web address] n [facility] [place], [address], 03/26/2024 13:34:15 Ozempi c 0.25 mg or 0.5 mg (2 mg/1.5 mL) subcut aneous pen inject or 2023 024 [facility], [facility], [place], [address], 08/06/2024 11:24:13 OneTou ch Verio test strips 2023 024 [id number], [address] , [place], [place], [id number], 07/04/2023 15:29:22 levoth yroxin e 50 mcg tablet 2023 [facility], [facility], [place], [address], 07/04/2023 15:29:18 Patient TargetsNo targets recorded. Patient Instructions Encounter Date Encounter Id Patient Instructions Last Modified By Organization Details Last Modified Time 07/04/2023 [id number] - Get labs done as ordered every [...] months. [email or web address] Not available 07/04/2023 18:28:35 01/29/2024 [id number] - Get labs done as ordered every [...] 6-8 weeks. [email or web address] Not available 01/29/2024 16:07:08 08/06/2024 [id number] - Get labs done as ordered every [...] frequency of moving bowels, tremors, or insomnia) Not available 08/01/2024 08:50:20 6 months/ 40 min ENDO RN in 6-8 weeks. Not available 08/01/2024 08:50:20 10/23/2024 [id number] - Get labs done as ordered every [...] frequency of moving bowels, tremors, or insomnia) Not available 10/22/2024 16:15:00 6 months/ 40 min ENDO RN in 6-8 weeks. Not available 10/22/2024 16:14:59 Reason for Referral None Reported. Results Created Date Observation Date Name Description Value Unit Range Abnormal Flag Note LastModifiedBy Organization Detail LastModifiedTime 08/01/19 24 08/02/2023 COMP. METAB OLIC PANEL (14) glucose 245 mg/dL 70-99 above high normal Not Available [facility] ([facility] [place] [facility] [address] [place], [address], 08/02/2023 14:06:54 08/01/19 24 08/02/2023 COMP. METAB OLIC PANEL (14) BUN 11 mg/dL 8-27 normal Not Available [facility] ([facility] [place] [facility] [address] [place], [address], 08/02/2023 14:06:54 08/01/19 24 08/02/2023 COMP. METAB OLIC PANEL (14) creatinine 0.94 mg/dL 0.57-1 .00 normal Not Available [facility] ([facility] [address] [place], [address], 08/02/2023 14:06:54 08/01/19 24 08/02/2023 COMP. METAB OLIC PANEL (14) eGFR 63 mL/mi n/1.7 3 >59 Not Available [facility] ([facility] [place] [facility] [address] [place], [address], 08/02/2023 14:06:54 08/01/19 24 08/02/2023 COMP. METAB OLIC PANEL (14) BUN/creatini ne ratio 12 12-28 normal Not Available [facility] ([facility] [place] [facility] [address] [facility] [place], [address], 08/02/2023 14:06:54 08/01/19 24 08/02/2023 COMP. METAB OLIC PANEL (14) sodium 139 mmol/ L 134-14 4 normal Not Available [facility] ([facility] [place] [facility] [address] [place], [address], 08/02/2023 14:06:54 08/01/19 24 08/02/2023 COMP. METAB OLIC PANEL (14) potassium 4.3 mmol/ L 3.5-5. 2 normal Not Available [facility] ([facility] [place] [place] [facility] [address] [facility] [place], [address], 08/02/2023 14:06:54 08/01/19 24 08/02/2023 COMP. METAB OLIC PANEL (14) chloride 98 mmol/ L 96-106 normal Not Available [facility] ([facility] [place] [facility] [address] [facility] [place], [address], 08/02/2023 14:06:54 08/01/19 24 08/02/2023 COMP. METAB OLIC PANEL (14) carbon dioxide, total 25 mmol/ L 20-29 normal Not Available [facility] ([facility] [place] [place] [facility] [address] [facility] [place], [address], 08/02/2023 14:06:54 08/01/19 24 08/02/2023 COMP. METAB OLIC PANEL (14) calcium 9.3 mg/dL 8.7-10 .3 normal Not Available [facility] ([facility] [place] [place] [facility] [address] [facility] [place], [address], 08/02/2023 14:06:54 08/01/19 24 08/02/2023 COMP. METAB OLIC PANEL (14) protein, total 6.7 g/dL 6.0-8. 5 normal Not Available [facility] ([facility] [place] [facility] [address] [facility], [place], [address], 08/02/2023 14:06:54 08/01/19 24 08/02/2023 COMP. METAB OLIC PANEL (14) albumin 3.8 g/dL 3.8-4. 8 normal Not Available [facility] ([facility] [place] [facility] [address] [place], [address], 08/02/2023 14:06:54 08/01/19 24 08/02/2023 COMP. METAB OLIC PANEL (14) globulin, total 2.9 g/dL 1.5-4. 5 Not Available [facility] ([facility] [place] [facility] [address] [place], [address], 08/02/2023 14:06:54 08/01/19 24 08/02/2023 COMP. METAB OLIC PANEL (14) A/G ratio 1.3 1.2-2. 2 Not Available [facility] ([facility] [place] [facility] [address] [facility] [place], [address], 08/02/2023 14:06:54 08/01/19 24 08/02/2023 COMP. METAB OLIC PANEL (14) bilirubin, total 0.3 mg/dL 0.0-1. 2 normal Not Available [facility] ([facility] [place] [facility] [address] [facility] [place], [address], 08/02/2023 14:06:54 08/01/19 24 08/02/2023 COMP. METAB OLIC PANEL (14) alkaline phosphatase 93 IU/L 44-121 normal Not Available [facility] ([facility] [place] [facility] [address] [facility] [place], [address], 08/02/2023 14:06:54 08/01/19 24 08/02/2023 COMP. METAB OLIC PANEL (14) AST (SGOT) 59 IU/L 0-40 above high normal Not Available [facility] ([facility] [place] [facility] [address] [facility] [place], [address], 08/02/2023 14:06:54 08/01/19 24 08/02/2023 COMP. METAB OLIC PANEL (14) ALT (SGPT) 41 IU/L 0-32 above high normal Not Available [facility] ([facility] [place] [facility] [address] [facility], [place], [address], 08/02/2023 14:06:54 08/01/19 24 08/02/2023 LIPID PANEL cholesterol, total 167 mg/dL 100-19 9 normal Not Available [facility] ([facility] [place] [facility] [address] [facility] [place], [address], 08/02/2023 14:06:59 08/01/19 24 08/02/2023 LIPID PANEL triglyceride s 82 mg/dL 0-149 normal Not Available [facility] ([facility] [place] [facility] [address] [place], [address], 08/02/2023 14:06:59 08/01/19 24 08/02/2023 LIPID PANEL HDL cholesterol 51 mg/dL >39 normal Not Available [facility] ([facility] [place] [place] [facility] [address] [place], [address], 08/02/2023 14:06:59 08/01/19 24 08/02/2023 LIPID PANEL VLDL cholesterol sandeep 15 mg/dL 5-40 Not Available [facility] ([facility] [place] [place] [facility] [address] [place], [address], 08/02/2023 14:06:59 08/01/19 24 08/02/2023 LIPID PANEL LDL chol calc ([facility] [place]) 101 mg/dL 0-99 above high normal Not Available [facility] (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 [place] [place] [facility] [address] [place], [address], 08/02/2023 14:06:59 08/01/19 24 08/02/2023 ALBUM IN/CR EATIN INE RATIO ,URIN E creatinine, urine 138.3 mg/dL not estab. normal Not Available [facility] ([facility] [place] [facility] [address] [place], [address], 08/02/2023 14:07:01 08/01/19 24 08/02/2023 ALBUM IN/CR EATIN INE RATIO ,URIN E albumin, urine 10.6 ug/mL not estab. Not Available [facility] ([facility] [place] [facility] [address] [place], [address], 08/02/2023 14:07:01 08/01/19 24 08/02/2023 ALBUM IN/CR EATIN INE RATIO ,URIN E alb/creat ratio 8 mg/g_ creat 0-29 Tami l: 0 - 29 Moder ately incre ased: 30 - 300 Sever vj incre ased: >300 Not Available [facility] ([facility] [place] [place] [facility] [address] [place], [address], 08/02/2023 14:07:01 08/01/19 24 08/02/2023 HEMOG LOBIN A1C hemoglobin A1C 8.8 % 4.8-5. 6 above high normal Predi abete s: 5.7 - 6.4 Diabe azar: >6.4 Glyce halina contr ol for adult s with diabe azar: <7.0 Not Available [facility] ([facility] [place] [facility] [address] [place], [address], 08/02/2023 14:07:03 08/01/19 24 08/02/2023 THYRO XINE (T4) FREE, DIREC T T4,free(dire ct) 1.35 NG/dL 0.82-1 .77 normal Not Available [facility] ([facility] [place] [place] [facility] [address] [place], [address], 08/02/2023 14:07:05 08/01/19 24 08/02/2023 TSH TSH 3.250 uIU/m L 0.450- 4.500 normal Not Available [facility] ([facility] [place] [facility] [address] [place], [address], 08/02/2023 14:07:07 01/30/20 24 01/31/2024 COMP. METAB OLIC PANEL (14) glucose 284 mg/dL 70-99 above high normal Not Available [facility] ([facility] [place] [place] [facility] [address] [place], [address], 02/09/2024 21:26:58 01/30/20 24 01/31/2024 COMP. METAB OLIC PANEL (14) BUN 8 mg/dL 8-27 normal Not Available [facility] ([facility] [place] [place] [facility] [address] [place], [address], 02/09/2024 21:26:58 01/30/20 24 01/31/2024 COMP. METAB OLIC PANEL (14) creatinine 0.93 mg/dL 0.57-1 .00 normal Not Available [facility] ([facility] [place] [place] [facility] [address] [place], [address], 02/09/2024 21:26:58 01/30/20 24 01/31/2024 COMP. METAB OLIC PANEL (14) eGFR 64 mL/mi n/1.7 3 >59 normal Not Available [facility] ([facility] [place] [place] [facility] [address] [place], [address], 02/09/2024 21:26:58 01/30/20 24 01/31/2024 COMP. METAB OLIC PANEL (14) BUN/creatini ne ratio 9 12-28 below low normal Not Available [facility] ([facility] [place] [place] [facility] [address] [place], [address], 02/09/2024 21:26:58 01/30/20 24 01/31/2024 COMP. METAB OLIC PANEL (14) sodium 139 mmol/ L 134-14 4 normal Not Available [facility] ([facility] [place] [place] [facility] [address] [facility] [place], [address], 02/09/2024 21:26:58 01/30/20 24 01/31/2024 COMP. METAB OLIC PANEL (14) potassium 3.3 mmol/ L 3.5-5. 2 below low normal Not Available [facility] ([facility] [place] [place] [facility] [address] [facility] [place], [address], 02/09/2024 21:26:58 01/30/20 24 01/31/2024 COMP. METAB OLIC PANEL (14) chloride 94 mmol/ L 96-106 below low normal Not Available [facility] ([facility] [place] [place] [facility] [address] [facility] [place], [address], 02/09/2024 21:26:58 01/30/20 24 01/31/2024 COMP. METAB OLIC PANEL (14) carbon dioxide, total 28 mmol/ L 20-29 normal Not Available [facility] ([facility] [place] [place] [facility] [address] [facility] [place], [address], 02/09/2024 21:26:58 01/30/20 24 01/31/2024 COMP. METAB OLIC PANEL (14) calcium 10.0 mg/dL 8.7-10 .3 normal Not Available [facility] ([facility] [place] [place] [facility] [address] [facility] [place], [address], 02/09/2024 21:26:58 01/30/20 24 01/31/2024 COMP. METAB OLIC PANEL (14) protein, total 7.0 g/dL 6.0-8. 5 normal Not Available [facility] ([facility] [place] [place] [facility] [address] [facility] [place], [address], 02/09/2024 21:26:58 01/30/20 24 01/31/2024 COMP. METAB OLIC PANEL (14) albumin 3.9 g/dL 3.8-4. 8 normal Not Available [facility] ([facility] [place] [place] [facility] [address] [place], [address], 02/09/2024 21:26:58 01/30/20 24 01/31/2024 COMP. METAB OLIC PANEL (14) globulin, total 3.1 g/dL 1.5-4. 5 Not Available [facility] ([facility] [place] [place] [facility] [address] [facility] [place], [address], 02/09/2024 21:26:58 01/30/20 24 01/31/2024 COMP. METAB OLIC PANEL (14) bilirubin, total 0.3 mg/dL 0.0-1. 2 normal Not Available [facility] ([facility] [place] [place] [facility] [address] [facility] [place], [address], 02/09/2024 21:26:58 01/30/20 24 01/31/2024 COMP. METAB OLIC PANEL (14) alkaline phosphatase 73 IU/L 44-121 normal Not Available [facility] ([facility] [place] [place] [facility] [address] [facility] [place], [address], 02/09/2024 21:26:58 01/30/20 24 01/31/2024 COMP. METAB OLIC PANEL (14) AST (SGOT) 64 IU/L 0-40 above high normal Not Available [facility] ([facility] [place] [place] [facility] [address] [facility] [place], [address], 02/09/2024 21:26:58 01/30/20 24 01/31/2024 COMP. METAB OLIC PANEL (14) ALT (SGPT) 37 IU/L 0-32 above high normal Not Available [facility] ([facility] [place] [place] [facility] [address] [facility] [place], [address], 02/09/2024 21:26:58 01/30/20 24 01/31/2024 LIPID PANEL cholesterol, total 164 mg/dL 100-19 9 normal Not Available [facility] ([facility] [place] [place] [facility] [address] [facility], [place], [address], 02/09/2024 21:26:59 01/30/20 24 01/31/2024 LIPID PANEL triglyceride s 105 mg/dL 0-149 normal Not Available [facility] ([facility] [place] [place] [facility] [address] [facility], [place], [address], 02/09/2024 21:26:59 01/30/20 24 01/31/2024 LIPID PANEL HDL cholesterol 49 mg/dL >39 normal Not Available [facility] ([facility] [place] [place] [facility] [address] [facility], [place], [address], 02/09/2024 21:26:59 01/30/20 24 01/31/2024 LIPID PANEL VLDL cholesterol sandeep 19 mg/dL 5-40 Not Available [facility] ([facility] [place] [place] [facility] [address] [facility], [place], [address], 02/09/2024 21:26:59 01/30/20 24 01/31/2024 LIPID PANEL LDL chol calc ([facility] [place]) 96 mg/dL 0-99 Not Available [facility] (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 [place] [place] [facility] [address] [facility], [place], [address], 02/09/2024 21:26:59 01/30/20 24 01/31/2024 ALBUM IN/CR EATIN INE RATIO ,URIN E creatinine, urine 24.1 mg/dL not estab. normal Not Available [facility] ([facility] [place] [place] [facility] [address] [facility], [place], [address], 02/09/2024 21:27:00 01/30/20 24 01/31/2024 ALBUM IN/CR EATIN INE RATIO ,URIN E albumin, urine 10.7 ug/mL not estab. Not Available [facility] ([facility] [place] [place] [facility] [address] [facility], [place], [address], 02/09/2024 21:27:00 01/30/2001/31/2024 ALBUM IN/CR EATIN INE RATIO ,URIN E alb/creat ratio 44 mg/g_ creat 0-29 above high normal Tami l: 0 - 29 Moder ately incre ased: 30 - 300 Sever vj incre ased: >300 Not Available [facility] ([facility] [place] [place] [facility] [address] [facility], [place], [address], 02/09/2024 21:27:00 01/30/2002/07/2024 TSH+F REE T4 TSH-icma 3.3 uu/mL Refer ence Range : Non-P regna nt Adult 0.450 -4.50 0 Pregn dhaval First Trime ster 0.100 -4.00 0 Secon d Trime ster 0.200 -4.00 0 Third Trime ster 0.300 -4.50 0 Not Available [facility] [address] [place], [address], 02/09/2024 21:27:00 01/30/2002/09/2024 TSH+F REE T4 free T4 by dialysis/mas [...] 1.7 Not Available [facility] [address] [facility], [place], [address], 02/09/2024 21:27:00 01/30/20 24 01/31/2024 HEMOG LOBIN A1C hemoglobin A1C 8.1 % 4.8-5. 6 above high normal Predi abete s: 5.7 - 6.4 Diabe azar: >6.4 Glyce halina contr ol for adult s with diabe azar: <7.0 Not Available [facility] ([facility] [place] [place] [facility] [address] [place], [address], 02/09/2024 21:27:01 07/04/19 25 07/05/2024 HEMOG LOBIN A1C hemoglobin A1C 9.2 % 4.8-5. 6 above high normal Predi abete s: 5.7 - 6.4 Diabe azar: >6.4 Glyce halina contr ol for adult s with diabe azar: <7.0 Not Available [facility] ([facility] [place] [place] [facility] [address] [place], [address], 07/05/2024 06:07:42 10/09/19 25 10/09/2024 TSH+F REE T4 TSH 3.320 uIU/m L 0.450- 4.500 normal Not Available [facility] ([facility] [place] [place] [facility] [address] [place], [address], 10/09/2024 14:06:15 10/09/19 25 10/09/2024 TSH+F REE T4 T4,free(dire ct) 1.45 NG/dL 0.82-1 .77 normal Not Available [facility] ([facility] [place] [place] [facility] [address] [place], [address], 10/09/2024 14:06:15 10/09/19 25 10/09/2024 COMP. METAB OLIC PANEL (14) glucose 195 mg/dL 70-99 above high normal Not Available [facility] ([facility] [place] [place] [facility] [address] [place], [address], 10/09/2024 14:06:16 10/09/19 25 10/09/2024 COMP. METAB OLIC PANEL (14) BUN 15 mg/dL 8-27 normal Not Available [facility] ([facility] [place] [place] [facility] [address] [place], [address], 10/09/2024 14:06:16 10/09/19 25 10/09/2024 COMP. METAB OLIC PANEL (14) creatinine 1.12 mg/dL 0.57-1 .00 above high normal Not Available [facility] ([facility] [place] [place] [facility] [address] [place], [address], 10/09/2024 14:06:16 10/09/19 25 10/09/2024 COMP. METAB OLIC PANEL (14) eGFR 51 mL/mi n/1.7 3 >59 below low normal Not Available [facility] ([facility] [place] [place] [facility] [address] [facility], [place], [address], 10/09/2024 14:06:16 10/09/19 25 10/09/2024 COMP. METAB OLIC PANEL (14) BUN/creatini ne ratio 13 12-28 normal Not Available [facility] ([facility] [place] [place] [facility] [address] [place], [address], 10/09/2024 14:06:16 10/09/19 25 10/09/2024 COMP. METAB OLIC PANEL (14) sodium 139 mmol/ L 134-14 4 normal Not Available [facility] ([facility] [place] [place] [facility] [address] [place], [address], 10/09/2024 14:06:16 10/09/19 25 10/09/2024 COMP. METAB OLIC PANEL (14) potassium 3.4 mmol/ L 3.5-5. 2 below low normal Not Available [facility] ([facility] [place] [place] [facility] [address] [place], [address], 10/09/2024 14:06:16 10/09/19 25 10/09/2024 COMP. METAB OLIC PANEL (14) chloride 97 mmol/ L 96-106 normal Not Available [facility] ([facility] [place] [place] [facility] [address] [place], [address], 10/09/2024 14:06:16 10/09/19 25 10/09/2024 COMP. METAB OLIC PANEL (14) carbon dioxide, total 27 mmol/ L 20-29 normal Not Available [facility] ([facility] [place] [place] [facility] [address] [facility] [place], [address], 10/09/2024 14:06:16 10/09/19 25 10/09/2024 COMP. METAB OLIC PANEL (14) calcium 9.4 mg/dL 8.7-10 .3 normal Not Available [facility] ([facility] [place] [place] [facility] [address] [facility], [place], [address], 10/09/2024 14:06:16 10/09/19 25 10/09/2024 COMP. METAB OLIC PANEL (14) protein, total 7.1 g/dL 6.0-8. 5 normal Not Available [facility] ([facility] [place] [place] [facility] [address] [facility], [place], [address], 10/09/2024 14:06:16 10/09/19 25 10/09/2024 COMP. METAB OLIC PANEL (14) albumin 4.0 g/dL 3.8-4. 8 normal Not Available [facility] ([facility] [place] [place] [facility] [address] [place], [address], 10/09/2024 14:06:16 10/09/19 25 10/09/2024 COMP. METAB OLIC PANEL (14) globulin, total 3.1 g/dL 1.5-4. 5 Not Available [facility] ([facility] [place] [place] [facility] [address] [place], [address], 10/09/2024 14:06:16 10/09/19 25 10/09/2024 COMP. METAB OLIC PANEL (14) bilirubin, total 0.5 mg/dL 0.0-1. 2 normal Not Available [facility] ([facility] [place] [place] [facility] [address] [place], [address], 10/09/2024 14:06:16 10/09/19 25 10/09/2024 COMP. METAB OLIC PANEL (14) alkaline phosphatase 89 IU/L 44-121 normal Not Available [facility] ([facility] [place] [place] [facility] [address] [facility] [place], [address], 10/09/2024 14:06:16 10/09/19 25 10/09/2024 COMP. METAB OLIC PANEL (14) AST (SGOT) 37 IU/L 0-40 normal Not Available [facility] ([facility] [place] [place] [facility] [address] [facility] [place], [address], 10/09/2024 14:06:16 10/09/19 25 10/09/2024 COMP. METAB OLIC PANEL (14) ALT (SGPT) 20 IU/L 0-32 normal Not Available [facility] ([facility] [place] [place] [facility] [address] [place], [address], 10/09/2024 14:06:16 10/09/19 25 10/09/2024 LIPID PANEL cholesterol, total 109 mg/dL 100-19 9 normal Not Available [facility] ([facility] [place] [place] [facility] [address] [place], [address], 10/09/2024 14:06:17 10/09/19 25 10/09/2024 LIPID PANEL triglyceride s 73 mg/dL 0-149 normal Not Available [facility] ([facility] [place] [place] [facility] [address] [place], [address], 10/09/2024 14:06:17 10/09/19 25 10/09/2024 LIPID PANEL HDL cholesterol 37 mg/dL >39 below low normal Not Available [facility] ([facility] [place] [place] [facility] [address] [place], [address], 10/09/2024 14:06:17 10/09/19 25 10/09/2024 LIPID PANEL VLDL cholesterol sandeep 15 mg/dL 5-40 Not Available [facility] ([facility] [place] [place] [facility] [address] [place], [address], 10/09/2024 14:06:17 10/09/19 25 10/09/2024 LIPID PANEL LDL chol calc ([facility] [place]) 57 mg/dL 0-99 Not Available [facility] (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 [place] [place] [facility] [address] [place], [address], 10/09/2024 14:06:17 10/09/19 25 10/09/2024 ALBUM IN/CR EATIN INE RATIO ,URIN E creatinine, urine 60.6 mg/dL not estab. normal Not Available [facility] ([facility] [place] [place] [facility] [address] [facility], [place], [address], 10/09/2024 14:06:19 10/09/19 25 10/09/2024 ALBUM IN/CR EATIN INE RATIO ,URIN E albumin, urine 46.2 ug/mL not estab. Not Available [facility] ([facility] [place] [place] [facility] [address] [facility], [place], [address], 10/09/2024 14:06:19 10/09/19 25 10/09/2024 ALBUM IN/CR EATIN INE RATIO ,URIN E alb/creat ratio 76 mg/g_ creat 0-29 above high normal Tami l: 0 - 29 Moder ately incre ased: 30 - 300 Sever vj incre ased: >300 Not Available [facility] ([facility] [place] [place] [facility] [address] [facility], [place], [address], 10/09/2024 14:06:19 10/09/19 25 10/11/2024 HEMOG LOBIN A1C hemoglobin A1C 8.0 %Hb above high normal Refer ence Range : Ameri can Diabe azar Assoc iatio n (ADA) Guide lines : <5.7: Decre ased risk for diabe azar 5.7 - 6.4: Incre ased risk for diabe azar >6.4: Ongoi ng Hyper glyce bowen of any cause <7.0: Glyce halina contr ol for adult s with diabe azar Not Available [facility] [address] [facility], [place], [address], 10/11/2024 13:44:45 10/09/1910/11/2024 HEMOG LOBIN A1C estimated average glucose 183 mg/dL Not Available [facility] [address] [place], [address], 10/11/2024 13:44:45 Result Notes None recorded. Problems Name Problem SNOMED Code Status Onset Date Resolution Date Notes Provider Name and Address Organization Details Recorded Time Headache 68896327 Active Not Available [facility] 3 03:15:34 On examinatio n - a rash Completed 03/27/2013 Not Available [facility] 3 02:00:50 Diarrhea 81216235 Completed 03/27/2013 Not Available [facility] 3 02:02:16 Type 2 diabetes mellitus without complicati on 639723763 Active Ward Wyman MD [address] [place] [address], [phone] , [facility] 6 18:08:43 Aortic valve disorder 2677179 Active Not Available [facility] 3 03:15:34 Uncontroll ed type 2 diabetes mellitus 222904590 Active ELENA Olivia, [facility] 6 17:29:59 Hypoglycem ia 123263805 Active Not Available [facility] 3 03:15:34 Hypothyroi dism 54107448 Active Ward Wyman MD [address] [place] [address], [phone] , [facility] 6 18:08:43 Pure hyperchole sterolemia 383173495 Active Ward Wyman MD [address] [place] [address], [phone] , [facility] 3 12:02:41 Hyperlipid emia 00213866 Active ELENA Olivia, [facility] 5 16:59:54 Aching pain 16650163 Active Ward yWman MD [address] [place], [address] , [facility] 4 18:15:56 Problem Notes None recorded. Procedures Surgical History Date Name Laterality Status Provider Name and Address Organization Details Recorded Time 0 Medicare Visit Tracking DM completed Shahnaz Chacko RN, BSN, [facility] [address] [place], [address], [facility] 10/22/2019 12:00:37 8 Knee arthroscopy/krystin maia completed Carolina Hoffmann LPN [facility] 08/30/2017 10:26:05 5 Medicare Visit Tracking DM completed BRENTON Childers, RN, CPT, CDE [address] [place] [address], [phone], [facility] 01/07/2015 13:58:01 lumpectomy of left breast completed Karen Hines [facility] 03/27/2019 11:08:04 Imaging Results None recorded. Procedure Notes None recorded. Medical Equipment None Reported. Allergies Allergen ID Allergen Name Allergen Category Reaction Reaction Severity Criticality Documentation Date Start Date Code Code System Note Provider Name and Address Organization Details Recorded Time 54641 Substance with sulfonami de structure and antibacte rial mechanism of action (substanc e) medicatio n Not available Not available Not available 05/18/2011 33576 [id number] SNOMED rash Shahnaz Cosme RN [email or web address], [facility] 3 11:01:18 Medications Name Sig Start Date [...] DAY active Prescibe d by Surgeon; Dr. Sina montalvo Not Available Not Available Not Available warfarin [...] torsemide 40 mg twice daily active PT states but often varies depandin g on wgt Not Available Not Available Not Available Prandin 1 mg - po with meals (TID) 02/22 completed Not Available Not Available Not Available metoprolo l succinate 50 mg take 1 and 1/2 tab twice daily (total dose 75mg. )daily active PT taking 200mg 1 tab daily Not Available Not Available Not Available Vagifem [...] 0.5 mg every week by subcutan eous route. 08/06 completed taking 0.25 mg weekly now 01/29/24 to increase 0.5 mg weekly Not Available Not Available Not Available Ozempic 1 mg/dose (4 mg/3 mL) subcutane ous pen injector Inject 1 mg by subcutan eous route every week 2024 active Not Available Not Available Not Avai lable Ozempic 2 mg/dose (8 mg/3 mL) subcutane ous pen injector Inject 2 mg every week by subcutan eous route for 90 days. 2024 active not started 10/23/24 Not Available Not Available Not Available Mounjaro 5 mg/0.5 mL subcutane ous pen injector Inject 5 mg every week by subcutan eous route for 90 days, for diabetes . 2024 active Not Available Not Available Not Avai lable Ozempic 0.25 mg or 0.5 mg (2 mg/3 mL) subcutane ous pen injector INJECT 0.5MG SUBCUTAN EOUSLY EVERY WEEK. 08/06 completed Not Available Not Available Not Available Vitals Date Recorded Body height Body mass index (BMI) Body weight Heart rate Systolic blood pressure Diastolic blood pressure Provider Name and Address Organization Details Last Updated DateTime 4 172.47 cm 28.8 kg/m2 77003.9 6 g 70 /min 128 mm[Hg] 62 mm[Hg] Taty Briggs [facility] 4 14:33:39 Date Recorded Body height Body mass index (BMI) Body weight Heart rate Systolic blood pressure Diastolic blood pressure Provider Name and Address Organization Details Last Updated DateTime 5 172.21 cm 28.3 kg/m2 69345.8 7 g 70 /min 122 mm[Hg] 63 mm[Hg] Litzy Almanza [facility] 5 11:29:04 Date Recorded Body height Body mass index (BMI) Body weight Provider Name and Address Organization Details Last Updated DateTime 10/23/2024 172.21 cm 27.7 kg/m2 72571.94 g Litzy Almanza [facility] 10/23/2024 11:14:20 Date Recorded Body height Body mass index (BMI) Body weight Heart rate Systolic blood pressure Diastolic blood pressure Provider Name and Address Organization Details Last Updated DateTime 4 172.21 cm 28.1 kg/m2 06968.8 4 g 69 /min 112 mm[Hg] 57.99 mm[Hg] Litzy Almanza LPN [facility] 4 15:16:20 Date Recorded Body height Body mass index (BMI) Body weight Heart rate Systolic blood pressure Diastolic blood pressure Provider Name and Address Organization Details Last Updated DateTime 4 172.21 cm 29.4 kg/m2 35499.7 4 g 61 /min 132 mm[Hg] 57 mm[Hg] Noel Lange RN [facility] 4 11:59:17 Social History Question Answer Notes LastModified by Organizat ion Details LastModified Time Tobacco Smoking Status Never Smoker ELENA Romero [facility] 05/18/2011 11:03:16 Which Illicit Or Recreational Drugs Have You Used? Denies Denies [email or web address] Information not available 02/05/2015 Live Alone Or With Others? With Others [email or web address] Information not available 02/08/2013 DM Disease Process [...] not available 11/20/2014 CCM Consent Discussion 08/30/2017 [email or web address] Information not available 06/12/2020 Marital Status Informati on not available 02/08/2013 What Was The Date Of Your Most Recent Tobacco Screening? 02/14/2018 Information not available 11/28/2018 How Many Children Do You Have? 3 Information not available 02/08/2013 Sex: Female Functional Status Question Answer Note LastModified by Organizat ion Details LastModified Time Do you use any illicit or recreational drugs? No Information not available 04/16/2021 Do you or have you ever used any other forms of tobacco or nicotine? No Information not available 04/16/2021 What is your level of alcohol consumption? 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 Family History Relationship Description Onset Age of this Age Resolved Age Notes LastModified by Organization Details LastModified Time Father Heart disease [email or web address] n Not available 10/07/2015 17:24:40 Brother Type 2 diabetes mellitus jose n Not available 10/07/2015 17:24:40 Brother Myasthenia gravis jose n Not available 10/07/2015 17:24:40 Notes:Dad about [...] (geovany randall, subha) Medical History Condition Response Diabetes Type II Y Thyroid Disease Y Sleep Apnea Y Gynecological HistoryNo gynecological history recorded. Obstetrics History GPAL:G 0 P 0 0 0 0 Immunizations Vaccine Type Date Status Note Provider Nam e and Address Organization Details Recorded Time Influenza, high-dose, trivalent, PF 0 completed ELENA Dodge, [facility] 06/15/2020 13:13:18 COVID-19, mRNA, LNP-S, PF, 100 mcg/0.5mL dose or 50 mcg/0.25mL dose 1 completed ELENA Lira, [facility] 10/14/2020 12:07:23 COVID-19, mRNA, LNP-S, PF, 100 mcg/0.5mL dose or 50 mcg/0.25mL dose 1 completed ELENA Lira, [facility] 10/14/2020 12:07:43 COVID-19, mRNA, LNP-S, PF, 100 mcg/0.5mL dose or 50 mcg/0.25mL dose 1 completed ESMER Borja, [facility] 04/16/2021 09:26:47 Influenza, split virus, quadrivalent, preservative 1 completed ESMER Borja, [facility] 04/16/2021 09:27:11 Past Encounters Encounter ID Performer Location Encounter Start Date Encounter Closed Date Diagnosis/Indication Diagnosis SNOMED-CT Code Diagnosis ICD10 Code Diagnosis Note [id number] Ward Wyman MD [facility] [address] [address] 05/18/2011 10:44:00 05/18/2011 13:19:41 [id number] Ward Wyman MD [facility], [address] [address] 08/05/2011 13:32:45 09/01/2011 15:39:19 [id number] Ward Wyman MD [facility], [address] [address] 10/28/2011 09:59:34 10/28/2011 11:49:27 [id number] Ward Wyman MD [facility], [address] [address] 04/18/2012 09:57:28 04/18/2012 11:33:14 [id number] Ward Wyman MD [facility], [address] [address] 10/12/2012 10:46:32 10/12/2012 12:26:39 [id number] Jahaira Santiago PA-C [facility], [address] [address] 02/08/2013 11:01:19 02/08/2013 12:29:17 Uncontrolled type 2 diabetes mellitus 106731870 Pt declined flu shot. Wants to have it done at her place of employment . Pt decided against [employer] after discussion with PCP, Cardiologi st and reading informatio n. Pt indicated that in past has not done well with metformin (but has not been on ER), januvia, actos. Denies having been on any sulfonyure a. [...] Will send in rx to local pharmacy [facility] [address]. Send pt lab slip to monitor LFT in a month and to get labs in preparatio n for Apr visit with Dr. Wyman. Hypothyroidism 79691334 TFT to goal cont on 25 mcg generic. [id number] Ward Wyman MD [facility], [address] [address] 04/19/2013 10:52:55 04/19/2013 12:06:25 Uncontrolled type 2 diabetes mellitus 809759443 a1c a bit better with limited trial of glipiide- now 7.4 and was up to 7.6% Has had reactions to all meds tried or she has felt that meds didn't work. log book shows BG better during time on glipizide. Other providers suggested not trying any new medication and insurance didn't want to pay for it. So didn't try SGLT2 inhibitor to try (canaglifo Erasmo na). If works, can file for prior auth with insurance since other meds not working. Will try glipizide but avoid ER to see if that works. STart off with glipizide taking 1/2 of 5 mg pill and see if can tolerate. Hypothyroidism 69477170 On 25 mcg generic. Last TSH at goal. Follow labs and adjust if TSH goes up over 4.5. Pure hypercholesterolemia 713507368 LDL now at 105 but has been [...] welchol (above) but told insurance wouldn't cover. [id number] Ward Wyman MD [facility], [address] [address] 07/17/2013 10:28:16 07/17/2013 11:49:29 Type 2 diabetes mellitus without complication 368116779 Better a1c now at 6.8. C/O lows during night with values in low 70's. Suggest cut glipizide in half so take 2.5 at HS and 2.5 in AM (OK to take after bkfst if under 100). Hypothyroidism 85949853 Doing well on 25 mcg generic. TSH at goal- doing well. Hyperlipidemia 66450756 LDL not at goal but intolerant of all meds. Watch for now. May try and see if she could take Welchol. [id number] Ward Wyman MD [facility], [address] [address] 11/22/2013 13:45:23 11/22/2013 15:21:52 Hypothyroidism 65123611 Doing well on 25 mcg generic. TSH at goal- doing well. Hyperlipidemia 98657086 LDL not at goal but intolerant of all meds. Watch for now. May try and see if she could take Welchol. But want to try and get diabetes under control first. Uncontroll ed type 2 diabetes mellitus 580715807 a1c up to 7.7%. Now off glipizide [...] when she's out doing errands). Aching pain 24723137 Mos tly in back. worse lying on left side. Feels it is different from fibromyalg ia. Seems to have been precipitan t for recent worsening control of sugars. [id number] Ward Wyman MD [facility], [address] [address] 01/15/2014 11:25:29 01/15/2014 12:28:11 Uncontrolled type 2 diabetes mellitus 276575449 Started on Prandin 1 mg and taking [...] most meds (often c/o side effects). Hypothyroidism 14583679 Doing well on 25 mcg generic. TSH at goal- doing well. [id number] Ward Wyman MD [facility], [address] [address] 04/10/2014 09:32:30 04/10/2014 10:49:37 Type 2 diabetes mellitus without complication 796688424 Better a1c now at 6.9%. C/o lows during night with values less than 80. Given a1c, continue on Prandin. Suggest that she eat regular meal the night before surgery and take prandin. If sugar is under 80 by 10PM, OK to have a small snack (without med). Don't take meds day of surgery. Hypothyroidism 38532727 Doing well clinically on 25 mcg generic. TSH is slightly up at 3.26. Patient willing to try higher dose. [id number] Ward Wyman MD [facility], [address] [address] 10/16/2014 09:53:55 10/16/2014 11:15:27 Type 2 diabetes mellitus without complication 130989213 Poor control with a1c of 8.5%. Had [...] to 2 pills with all meals. Hypothyroidism 06463517 Doing well clinically on 25 mcg generic. TSH is slightly up at 3.26. Not sure if increase dose will have any clinical impact. For now, monitor labs. Emphasis on getting a1c back towards goal. 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 (also can't exercise much given SOB and [...] to 2 pills with all meals. Hypothyroidism 59002617 E03.9 Doing well clinically on 25 mcg generic. TSH is slightly up just over 3. Not sure if increase dose will have any clinical impact and she doesn't want to take more. For now, monitor labs. [id number] Ward Wyman MD [facility], [address] [address] 10/07/2015 16:50:23 10/09/2015 12:34:57 Hypothyroidism 51092151 E03.9 Doing well clinically on 25 mcg generic. TSH is slightly up just over 3. Not sure if increase dose will have any clinical impact and she doesn't want to take more. For now, monitor labs. Type 2 diamante betes mellitus without complication 310250020 E11.9 Much worse control now (8.0%) vs. 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 (also can't exercise much given SOB and question of LVH or other cardiac issues) 2) Incretin- which would help with weight loss but has GI s/e. Willing to try Byetta (doesn't need prior approval) 3) Re-try GROVER [...] glimepirid e) with low-dose (5 mcg) Hernanetta. [id number] Ward Wyman MD [facility], [address] [address] 02/18/2016 14:26:52 02/18/2016 16:23:11 Type 2 diabetes mellitus without complication 309036083 E11.9 Much better control now (6.9% vs [...] she may have troubles staying on this m[facility]p. (also can't exercise much given SOB and question of LVH or other cardiac issues)2) Incretin- which would help with weight loss but has GI s/e. She has Edna (Rx from last time) but hasn't used.3) [...] glimepirid e) with low-dose (5 mcg) Edna. But a1c has come down so will keep this strategy in reserve if/when sugars go up. Hypothyroidism 11805908 E03.9 Doing well clinically on 25 mcg generic. TSH is at target.[facility] ito labs. 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 (also can't exercise much given SOB and question of LVH or other cardiac issues)2) Incretin- which would help with weight loss but has GI s/e. She has Edna (Rx from last time) but hasn't used.3) [...] glimepirid e) with low-dose (5 mcg) Edna. But a1c has come down so will keep this strategy in reserve if/when sugars go up. Hypothyroidism 05762908 E03.9 Doing well clinically on 25 mcg generic. TSH is at target (3.01 on labs from [facility] in 07/22)Monit or labs. Anemia 980599447 D64.9 Can affect accuracy of A1c.H/H= 10.7/34.5; Getting GI w/u (small bowel camera pending). Encourage her to f/u with PCP for next steps. [id number] Ward Wyman MD [facility], [address] [address] 02/22/2017 15:05:19 02/22/2017 16:38:05 Type 2 diabetes mellitus without complication 206952813 E11.9 Control at 7.9% (02/21)- not really taking prandin. Too much trouble rememberin g.Had been 7.1% (06/24)- was 6.9% and had been 8.0% - had 6.6 in 02/2015. Has Glimepirid e but hasn't tried.Didn 't try Byetta (was concerned it had frozen)- told that Trulicity covered with prior auth. Suggest she start glimepirid e at 4 mg per day. And also send Rx for Trulicity (generate prior auth) to use that at [...] 0.5 and both have other s/e. Hypothyroidism 50634082 E03.9 Doing well clinically on 25 mcg generic. TSH is slightly up at 3.46 (10/22); Monitor labs. If further increase, can go up to 50 mcg. [id number] Ward Wyman MD [facility], [address] [address] 08/30/2017 09:59:20 08/30/2017 12:03:07 Type 2 diabetes mellitus without complication 355026857 E11.9 Control at 7.8% (07/23- was 7.9% [...] long-actin g insulin as best option. Hypothyroidism 42637581 E03.9 Doing well clinically on 25 mcg generic. TSH is 2.98 (07/23); was slightly up at 3.46 (10/22); Monitor labs. If further increase, can go up to 50 mcg. [id number] Ward Wyman MD [facility], [address] [address] 02/14/2018 10:41:31 02/14/2018 12:17:33 Hypothyroidism 68807683 E03.9 Doing well clinically on 25 mcg generic. TSH is 3.53 ((02/22); was 2.98 (07/23); was slightly up at 3.46 (10/22); Monitor labs. If further increase, can go up to 50 mcg. Type 2 diamante betes mellitus without complication 006528386 E11.9 Not controlled .A1c 7.9% in 02/22 - was 7.8% (07/23); was 7.9% in 02/21)-Thi s visit says she is on Prandin and not on glimepirid e (but before had reported reverse)On Trulicity (0.75mg). A1c stable but generally up since last year- had been 7.1% (2)- was 6.9% and [...] should be taking before each meal. Hyperlipidemia 53010982 E78.5 TG and HDL OK but LDL at 111. She has not wanted to take statin because of concern for s/e but hasn't actually tried it. Discussed that studies have shown benefit with statin even when LDL is around 116.Recomm end she try low dose of statin. She is willing to try. Suggest pravastati n 10 mg. Metabolic dysfunction-associate d steatohepatitis 787028777 K75.81 Dx in 2018. Sees Shraddha. Improving a1c might help. Old study with pioglitazo ne had shown some potential for improvemen t. Newer studies with GLP-1 agonists may indicate benefit but short term and small sample sizes. [id number] Ward Wyman MD Endocrino logy, [address] [address] 08/22/2018 10:38:14 08/22/2018 11:45:33 Hypothyroidism 08108537 E03.9 Doing well clinically on 25 mcg generic. TSH is 3.53 ((02/22); was 2.98 (07/23); was slightly up at 3.46 (10/22); Monitor labs. If further increase, can go up to 50 mcg. Uncontroll ed type 2 diabetes mellitus [id number] E11.65 Better control in 2019 A1c- 7.1% [...] 0.5 and both have other s/e. Hyperlipidemia 62137926 E78.5 TG and HDL OK - LDL down to 101 (07/24); had been 111 .Tried pravastati n even with coQ10 but had s/e (m/s) Might consider ezetimibe as an option (not absorbed so minimal risk for systemic s/e) Metabolic dysfunction-associate d steatohepatitis 694524230 K75.81 Dx in 2018. told of stage II-III (based on bx). Sees [place]ak.Imp roving a1c would help. LFTs about the same over past few times. Old study with pioglitazo ne had shown some potential for improvemen t. Newer studies with GLP-1 agonists may indicate benefit but short term and small sample sizes. Unfortunat vj, she didn't tolerate Trulicity and not sure she will tolerate other incretins. [id number] Ward Wyman MD Endocrino logy, [address] [address] 03/27/2019 10:35:17 03/27/2019 12:21:07 Uncontrolled type 2 diabetes mellitus [id number] E11.65 Worse control in fall 2018 with a1c up to 8.4 (02/23).Noemi doe on from admission and heart failure. Will [...] concentric LVH. EF= 65%.More recent echo in 2019 still shows intact [...] she needs). Standing orders placed 03/26 Hypothyroidism 45535526 E03.9 TFT to goal - continue on 25 mcg generic. tsh= 3.90 (02/23); was 3.53; Hyperlipidemia 85503313 E78.5 TG and HDL OK -LDL down to 101 (07/24); had been 111 .Given new heart failure, would like it to be lower but she has been unable to tolerate.T rikonstantin gupta n even with coQ10 but had s/e (m/s) Might consider ezetimibe as an option (not absorbed so minimal risk for systemic s/e)Anothe r option is Welchol. Metabolic dysfunction-associate d steatohepatitis 456174435 K75.81 Dx in 2018. told of stage II-III (based on bx). Sees Shraddha. Improving a1c would help. LFTs about the same over past few times. Newer studies with GLP-1 agonists may indicate benefit but short term and small sample sizes. Unfortunat vj, she didn't tolerate Trulicity and not sure she will tolerate other incretins. [id number] Ward Wyman MD Endocrino logy, [address] [address] 10/15/2019 13:24:17 10/17/2019 10:03:11 Uncontrolled type 2 diabetes mellitus 252561088 E11.65 Worse control in spring 2019 (a1c up to 9.3 (09/24) vs 8.4 (02/23)) On glimepirid e 4mg bidCouldn' t tolerate other meds: metformin (h/a), prandin (trouble rememberin g), Trulicity, Byetta (nausea). Also problems with arbose, invokana and Pavithra mcdaniel considered pioglitazo ne for benefit of glucoses [...] need to get every 3 months. Hypothyroidism 62976285 E03.9 TSH= 3.90 (02/23); was 3.53;Lindy nue on 25 mcg generic. Monitor labs and adjust dose prn. Hyperlipidemia 78293940 E78.5 Not on meds- can't tolerateLa st profile was 07/24.TG and HDL OK -LDL down to 101 (3/19); had been 111 . Given new heart failure, would like it to be lower but she has been unable to tolerate.T amador prafelipetapatrick n even with coQ10 but had s/e (m/s) Might be worth trying Welchol- especially if helps her GI sx. Alternmax zabala, try ezetimibe (not absorbed so minimal risk for systemic s/e) Metabolic dysfunction-associate d steatohepatitis 870387170 K75.81 Dx in 2018. told of stage II-III (based on bx). Sees Damaris. Improving a1c would help. LFTs about the same over past few times. Newer studies with GLP-1 agonists may indicate benefit. Unfortunat vj, she didn't tolerate Trulicity and not sure she will tolerate other incretins. [id number] Shahnaz Chacko RN, BSN, [facility] , [address] [address] 10/22/2019 10:30:55 10/24/2019 08:48:58 Uncontrolled type 2 diabetes mellitus 470377758 E11.65 Spoke with My arzola for diabetes [...] with a high A1c, pt is still omega stanley the Tresiba. She is also omega stanley getting a Freestyle Eryn CGM, will call if she wants [...] week- Tresiba recommenda tions, care, storage, injection. [id number] Ward Wyman MD Endocrino logy, [address] [address] 06/15/2020 12:58:38 08/10/2020 06:47:05 Type 2 diabetes mellitus without complication 934201816 E11.9 Much better control with a1c of 7.1 (06/28); was 6.9 (12/25) but had been 9.3 (09/24) Didn't start insulin and only on glimepirid e. Can't tolerate other meds. A1c 7.9% in 02/22 - was 7.8% (07/23); was 7.9% in 02/21)- A1c stable but generally up since last year- had been 7.1% (06/24)- was 6.9% and had been 8.0% - had 6.6 in 02/2015. Other options: - Bromocript ine or Welchol but these won't get a1c down more than 0.5 and both have other s/e. Hypothyroidism 26401885 E03.9 TSH= 2.81 (06/28); was 3.90 (02/23); was 3.53; Continue on 25 mcg generic. Monitor labs and adjust dose prn. Uncontroll ed type 2 diabetes mellitus 192922362 E11.65 Better control in early 2020 (7.1 in 06/28; was 6.9 in 12/25); Much worse in spring 2019 (a1c up to 9.3 (09/24) vs 8.4 (02/23)) Still on glimepirid e 4mg bid Never went on insulin. Couldn't tolerate other meds: metformin (h/a), prandin (trouble rememberin g), Trmick Byetta (nausea). Also problems with arbose, invokana [...] 8.0% - had 6.6 in 02/2015. Seeing clinical staff educator pharmacist Belén Zambrano. 2020: Told by [...] need to get every 3 months. Hyperlipidemia 51211103 E78.5 Not on meds- can't tolerate Last [...] absorbed so minimal risk for systemic s/e) Metabolic dysfunction-associate d steatohepatitis 508189594 K75.81 Dx in 2017. told of stage II-III (based on bx). Sees Damaris. Improving a1c would help. LFTs about the same over past few times. Newer studies with GLP-1 agonists may indicate benefit. Unfortunat vj, she didn't tolerate Trulicity and not sure she will tolerate other incretins. [id number] Ward Wyman MD Endocrino logy, [address] [address] 10/14/2020 11:55:53 10/15/2020 19:43:47 Type 2 diabetes mellitus without complication 232998406 E11.9 Much better control with a1c of [...] 0.5 and both have other s/e. Hypothyroidism 09704410 E03.9 TSH= 3.4 (09/25); was 2.81 (06/28); was 3.90 (02/23); was 3.53; Continue on 25 mcg generic. Monitor labs and adjust dose prn. Uncontroll ed type 2 diabetes mellitus 689537400 E11.65 Better control in early 2020 a1c= [...] Also problems with acarbose, invokana (yeast) and damionbrenda Have considered pioglitazo ne (for BG and also potentiall y to help fatty live) but no longer appropriat e given episode of heart failure. Previous echo had some abnormalit ies. Invokana would be hepful given hx of heart failure but she got yeast on it. Seeing clinical staff educator pharmacist Belén Zambrano. 2020: Told by [facility] that should see surgeon. She wants 2nd opinion ([place]) 2017: Moderately dilated left atrium with mild [...] need to get every 3 months. Hyperlipidemia 73966387 E78.5 Not on meds- can't tolerate Last [...] Welchol- especially if helps her GI sx. Metabolic dysfunction-associate d steatohepatitis 627467614 K75.81 Dx in 2017. told of stage II-III (based on bx). Tesfaye Carvajal. Improving a1c would help. LFTs about the same over past few times. Newer studies with GLP-1 agonists may indicate benefit. Unfortunat vj, she didn't tolerate Trulicity and not sure she will tolerate other incretins. [id number] Ward Wyman MD Endocrino logy, [address] [address] 04/16/2021 09:16:16 04/19/2021 14:57:40 Type 2 diabetes mellitus without complication 489949970 E11.9 a1c= 7.6 (03/28); was 6.5% (5); was 7.1 (06/28); was 6.9 (12/25) but [...] 0.5 and both have other s/e. Hyperlipidemia 23211710 E78.5 Not on meds- can't tolerate. Last [...] especially if helps her GI sx. Hypothyroidism 00006052 E03.9 TSH= 2.83 (03/28); 3.4 (09/25); was 2.81 (06/28); was 3.90 (02/23); was 3.53; Continue on 25 mcg generic. Monitor labs and adjust dose prn. Uncontroll ed type 2 diabetes mellitus 399641529 E11.65 Worse control in early 2020. a1c= [...] Also problems with acarbose, invokana (yeast) and Alvarez ling to re-try invokana since might help heart. Seeing clinical staff educator pharmacist Belén Zambrano. Seeing cardiology /surgery in [place] but hoping to feel better about options. [...] every 3 months. cardiologi doug amaya ([facility]) Metabolic dysfunction-associate d steatohepatitis 113211246 K75.81 Dx in 2018. told of stage II-III (based on bx). Sees Damaris.Kevan e fibrosis noted in past. Improving a1c would help. LFTs about the same over past few times. Newer studies with GLP-1 agonists may indicate benefit. Unfortunat vj, she didn't tolerate Trulicity and not sure she will tolerate other incretins. [id number] Ward Wyman MD Endocrino logy, [address] [address] 12/29/2021 15:34:57 12/31/2021 09:08:42 Type 2 diabetes mellitus without complication 078309421 E11.9 a1c= 5.6 (12/27); was 7.8 (06/29); [...] 0.5 and both have other s/e. Hyperlipidemia 54283723 E78.5 Not on meds- can't tolerate. Last profile was12/27: 116/64/42/ 61/: 159-79-57- 86 06/28: 155/84/54/ 80 TG and HDL OK. LDL under 100; was 101 (07/24); had been 111. Have suggested ezetimibe (not absorbed so minimal risk for systemic s/e) 04/27: Suggested again. Avoiding in part for her GI dx ([facility]). Might be worth trying Welchol- especially if helps her GI sx.12/27: Given LDL of 61, will monitor for now. Hypothyroidism 19124596 E03.9 TSH= 2.83 (03/28); 3.4 (09/25); was 2.81 (06/28); was 3.90 (02/23); was 3.53; Continue on 25 mcg generic. Monitor labs and adjust dose prn. Metabolic dysfunction-associate d steatohepatitis 375404156 K75.81 Dx in 2018. told of stage [...] be able to use pioglitazo ne (actos) [id number] Ward Wyman MD Endocrino logy, [address] [address] 08/15/2022 13:34:49 08/18/2022 11:32:11 Type 2 diabetes mellitus without complication 854991375 E11.9 UNCONTROLL ED a1c= 8.5 (07/28) was [...] 0.5 and both have other s/e. Hyperlipidemia 70527891 E78.5 Not on meds- can't tolerate. Last profile was07/28: 143/93/46/ 78/: 116/64/42/ 61/: 159-79-57- 86 06/28: 155/84/54/ 80 TG and [...] LDL at 78. monitor for now. Hypothyroidism 46486402 E03.9 TSH= 8.33 (07/28) was 2.83 (03/28); 3.4 (09/25); was 2.81 (06/28); was 3.90 (02/23); was 3.53; Increase to 50 from 25 mcg generic. Monitor labs and adjust dose prn. Metabolic dysfunction-associate d steatohepatitis 709708498 K75.81 Dx in 2017. told of stage [...] BG. Uncontroll ed type 2 diabetes mellitus 630166839 E11.65 a1c over 8% (2022) Screening for osteoporosis 537480799 Z13.820 thinks had BMD done in past at [place]. Try and update. [id number] Ward Wyman MD Endocrino logy, [address] [address] 07/04/2023 14:24:25 07/05/2023 09:06:42 Type 2 diabetes mellitus without complication 332337946 E11.9 UNCONTROLL EDhas evidence of neuropathy a1c= 8.1 (04/29) was 8.5 (07/28) was 5.6 (8/22); was 7.8 (06/29); was 7.6 (03/28); was [...] 0.5 and both have other s/e. Hyperlipidemia 11384465 E78.5 Not on meds- can't tolerate. Last [...] LDL at 78. monitor for now. Hypothyroidism 29008865 E03.9 TSH= 8.33 (07/28) was 2.83 (03/28); 3.4 (09/25); was 2.81 (06/28); was 3.90 (02/23); was 3.53; Increase to 50 from 25 mcg generic last visit.- update labs. Monitor labs and adjust dose prn. Metabolic dysfunction-associate d steatohepatitis 083308146 K75.81 Dx in 2018. told of stage [...] stopped because low dose didn't affect BG. Uncontrol ed type 2 diabetes mellitus 151483290 E11.65 has evidence of neuropathy a1c over [...] 07/01: On glimepirid e only.- Re-try trulicity. [id number] Ward Wyman MD Endocrino logy, [address] [address] 01/29/2024 14:51:32 01/30/2024 10:43:31 Uncontrolled type 2 diabetes mellitus 541709748 E11.65 [facility] evidence of neuropathy (not controlled ) a1c [...] dose ozempic. Try increase in dose. Hyperlipidemia 50476834 E78.5 Not on meds- can't tolerate.N ot [...] tolerate statins.- Discussed option of PCSK9i. Hypothyroidism 98537401 E03.9 TSH= 3.25 (07/29); was 8.33 (07/28) was 2.83 (03/28); 3.4 (09/25); was 2.81 (06/28); was 3.90 (02/23); was 3.53; Increased to 50 from 25 mcg generic last visit.- Update labs (especiall y given severe fatigue). Monitor labs and adjust dose prn.01/29: extremely fatigued. Update labs and monitor. Adjust dose prn Metabolic dysfunction-associate d steatohepatitis 670890129 K75.81 Dx in 2018. told of stage [...] affect BG.01/29: Tolerating ozempic 0.25. try increase. [id number] Ward Wyman MD Endocrino logy, [address] [address] 03/26/2024 10:34:29 03/28/2024 09:51:30 Uncontrolled type 2 diabetes mellitus 253902573 E11.65 [id number] Ward Wyman MD Endocrino logy, [address] [address] 08/06/2024 11:08:35 08/08/2024 13:53:33 Uncontrolled type 2 diabetes mellitus 619367652 E11.65 GOALS:- Maxmize control of diabetes- Minimize risks for complicati ons of diabetes (Renal/Eye /Nerve)- Minimize risk for hypoglycem iA- Minimize risk for CVD (blood pressure and lipids) Has evidence of neuropathy (not controlled ) a1c= 9.2 (07/02) was 8.1 (01/29) was 10.8 (10/29); was 8.8 (07/29) was 8.1 [...] tolerating low dose ozempic. Try increase in dose.08/30: Increase ozempic to 2mg. Hyperlipidemia 75234263 E78.5 Not controlled Not on meds- can't tolerate.1 : 164/105/49 /9607/29: 167/82/51/ 101;07/28: 143/93/46/ 7812/27: 116/64/42/ 61/: 159-79-57- 86 06/28: 155/84/54/ 80 TG and HDL OK. LDL has generally (but not always) been under 100; Hasn't been below 70. Have suggested ezetimibe (not absorbed so minimal risk for systemic s/e) 04/27: Suggested again. Avoiding in part for her GI dx (). Might be worth trying Welchol- especially if helps her GI sx.12/27: Given LDL of 61, will monitor for now.08/28: OK LDL at 78. monitor for now.01/29: LDL high. Increases risk for CVD. Hasn't been able to tolerate statins.- Discussed option of PCSK9i.08/07 5: Will come back to option of zetia, welchol or PCSK9i Hypothyroidism 00325447 E03.9 TSH= 3.3 (02/28) was 3.25 (07/29); was 8.33 (07/28) was 2.83 (03/28); 3.4 (09/25); was 2.81 (06/28); was 3.90 (02/23); was 3.53; Increased to 50 from 25 mcg generic last visit.- Update labs (especiall y given severe fatigue). Monitor labs and adjust dose prn.01/29: extremely fatigued. Update labs and monitor. Adjust dose prn4/25: TSH stable on synthroid 50 Metabolic dysfunction-associate d steatohepatitis 864343554 K75.81 NOT CONTROLLED (based on LFTs) Dx in 2018. told of stage II-III (based on bx). Sees Damaris.Kevan e fibrosis noted in past. Improving a1c would help. LFTs about the same over past few times. Newer studies with GLP-1 agonists may indicate benefit. Unfortunat vj, she didn't tolerate Trulicity and not sure she will tolerate other incretins. ast/alt= 64/37 (02/28) was 59/41 (07/29); was 28/20 (07/28) 07/01: Willing to try Trulicity again. she thinks nausea improved over time and stopped because low dose didn't affect BG.01/29: Tolerating ozempic 0.25. try increase.: Has been tolerating ozempic 1mg. Try increasing to 2mg. Renal diso rder due to type 2 diabetes mellitus 185035964 E11.65 ACR= 44 (02/28); was 8 (07/29) was 78.7 (07/28);a1c = 9.2 (07/02) was 8.1 (01/29) was 10.8 (10/29); was 8.8 (07/29) was 8.1 (04/29) was 8.5 (07/28) was 5.6 (12/27); was 7.8 (06/29); was 7.6 (03/28); was 6.5% (09/25); was 7.1 (06/28); was 6.9 (12/25) but had been 9.3 (09/24)In past, was 7.9% in 02/22 - was 7.8% (07/23); was 7.9% in 02/21)- had been 7.1% (06/24)- was 6.9% and had been 8.0% - had 6.6 in 02/2015. Also has evidence of neuropathy (not controlled ) 07/01: On glimepirid e only.01/29: tolerating low dose ozempic. Try increase in dose.08/30: Increase ozempic to 2mg. If ACR remains over 30, will want to discuss other options. has been tried on farxiga and jardiance in past. [id number] Ward Wyman MD Endocrino logy, [address] [address] 10/23/2024 11:07:10 10/24/2024 08:21:44 Uncontrolled type 2 diabetes mellitus 811986641 E11.65 GOALS:- Maxmize control of diabetes- Minimize risks for complicati ons of diabetes (Renal/Eye /Nerve)- Minimize risk for hypoglycem iA- Minimize risk for CVD (blood pressure and lipids) Has evidence of neuropathy (not controlled ) a1c= 8.0 (10/30) was 9.2 (07/02) was 8.1 (01/29) was 10.8 (10/29); was 8.8 (07/29) was 8.1 [...] tolerating low dose ozempic. Try increase in dose.08/30: Increase ozempic to 2mg.10/30: Constipati on severe on ozempic 1 mg. PCP suggests switch to Mounjaro. OK to sara but not sure will see much difference Renal diso rder due to type 2 diabetes mellitus 274940103 E11.65 ACR= 76 (10/30) was 44 (02/28); was 8 (07/29) was 78.7 (07/28);a1c = 8.0 (10/30) was 9.2 (07/02) was 8.1 (01/29) was 10.8 (10/29); was 8.8 (07/29) was 8.1 (04/29) was 8.5 (07/28) was 5.6 (12/27); was 7.8 (06/29); was 7.6 (03/28); was 6.5% (09/25); was 7.1 (06/28); was 6.9 (12/25) but had been 9.3 (09/24)In past, was 7.9% in 02/22 - was 7.8% (3); was 7.9% in 02/21)- had been 7.1% (06/24)- was 6.9% and had been 8.0% - had 6.6 in 02/2015. Also has evidence of neuropathy (not controlled ) 07/01: On glimepirid e only.01/29: tolerating low dose ozempic. Try increase in dose.08/30: Increase ozempic to 2mg. If ACR remains over 30, will want to discuss other options. has been tried on farxiga and jardiance in past.10/30: try change to mounjaro 5mg. Hyperlipidemia 74709816 E78.5 Not controlled Not on meds- can't tolerate.: 109/73/37/ 57;02/28: 164/105/49 /9607/29: 167/82/51/ 101;07/28: 143/93/46/ 7812/27: 116/64/42/ 6109/25: 159-79-57- 86 06/28: 155/84/54/ 80 TG and HDL OK. LDL has generally (but not always) been under 100; Hasn't been below 70. Have suggested ezetimibe (not absorbed so minimal risk for systemic s/e) 04/27: Suggested again. Avoiding in part for her GI dx ([facility]). Might be worth trying Welchol- especially if helps her GI sx.12/27: Given LDL of 61, will monitor for now.08/28: OK LDL at 78. monitor for now.01/29: LDL high. Increases risk for CVD. Hasn't been able to tolerate statins.- Discussed option of PCSK9i.08/07 5: Will come back to option of zetia, welchol or OBAE3c9/25 : come back to this after gets other issues addressed (anemia, high a1c, AFib, etc.) Metabolic dysfunction-associate d steatohepatitis 108942969 K75.81 NOT CONTROLLED (based on LFTs) Dx in 2018. told of stage II-III (based on bx). Was seeing Damaris.Kevan e fibrosis noted in past.Impro ving a1c would help. LFTs about the same over past few times. existing studies with GLP-1 agonists strongly suggest benefit. Unfortunat vj, she didn't tolerate Trulicity and not sure she will tolerate other incretins. ast/alt= 37/20 (10/30) was 64/37 (02/28) was 59/41 (07/29); was 28/20 (07/28) 07/01: Willing to try Trulicity again. she thinks nausea improved over time and stopped because low dose didn't affect BG.01/29: Tolerating ozempic 0.25. try increase.: Has been tolerating ozempic 1mg. Try increasing to 2mg.10/30: Didn't increase ozempic. Became severely constipate d. PCP suggesting try Mounjaro.N ot sure this will be different but will try 5mg. Hypothyroidism 71266913 E03.9 TSH= 3.32 (10/30) was 3.3 (02/28) was 3.25 (07/29); was 8.33 (07/28) was 2.83 (03/28); 3.4 (09/25); was 2.81 (06/28); was 3.90 (02/23); was 3.53; Increased to 50 from 25 mcg generic last visit.- Update labs (especiall y given severe fatigue). Monitor labs and adjust dose prn.01/29: extremely fatigued. Update labs and monitor. Adjust dose pr: TSH stable on synthroid 50 (dose increased 08/2022) Anemia 702576772 D64.9 Can affect accuracy of A1c.Hgb= 6.7 (10/30); received xfusion.Re ports was 11/36.6 (10/29); was 10.7/34.5; Not clear where bleeding is coming from.*Blair sfusion will likely make a1c look better than it really is. Increases complexity * Health Concerns Section Related Observation LastModified by Organization Detai ls LastModified Time None Recorded Concern Status LastModified by Organization Details LastModified Time None Recorded Advance Directives Directive None Recorded Payers Insurance Date Sequence Insurance Name Policy Number Policy [place] Covered Member ID [place] Member ID Guarantor Name 10/22/2024 1 [place]: [employer] My Pappas [id number] My Pappas 03/22/2024 1 [facility] [facility] [id number] My Pappas [id number] My Pappas 10/22/2024 2 [place] [id number] My Pappas [id number] My Pappas Notes Date Note Type Note Provider Name and Address Organization Details Recorded Time 024 text/ht ml DiabetesReported bypatient.Labs:last Hemoglobin A1C: [...] no blurred vision ([facility] ([place])- due this week (07/01). Told of cataracts [...] 110-150 (04/27);12/27: one value in 60s overnight. Fe valuesAM= 83-116;HS= 103-173 03/28: Had seen pharmacist Lance ([facility]) as clinical staff educator (monthly). [facility] [address] INTOLERANT to statins. Not clear if tried Zetia.Lipid panel at goal on no meds.Feels she can't take meds for pain because of reactions. HYPERLIPIDEMIA:04/29: 144/113/44/7707/28: 143/93/46/7812/27: 116/: 781-58-12-876: 715-09-58-8606/28: 155/: 170/63/58/99 NAFLD:Told of RAMEY with fibrosis (tesfaye Carvajal). 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 LFTs:AST/ALT= [...] was at goal (2016)- PCP is Edison ([facility])GI is Damaris. colitisBREAST: Vik was surgeon.CARDS: STACIA. MEDICAL CONDITIONS:- T2DM without significant complications on glimepiride. Intolerant to meds. Uncontrolled- Fatty Liver. 2020: Told of cirrhosis (Damaris).- Intolerance to multiple medications (no statins, etc.)- Fibromyalgia- Benign Hypertension- Hypothyroidism on replacement dose- Sleep apnea on CPAP (Brandyn at [facility]). Also sleeps poorly because of pain- back/fibromyalgia/abdominal (left side worse)/night sweats.- AFib (post-cardiac surgery in 2021) Open heart surgery three valves done 08/19/21, Mini stroke after that 09/24/21PT now has A-Fib DX PAST MEDICAL Hx (updated):T2DM Hx of arthritis and fibromyalgia (question of lupus). 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 Planning for surgery (REAL ESTATE REPRESENTATIVE is Margaret but has been referred to [facility] as REAL ESTATE REPRESENTATIVE onc)10/20- Had surgery (removed area and told [...] fell- broke right hip (08/28)- was pinned ([facility])- in pain in rehab (1 month). To [place] ([facility]) and got total hip (03/30). Still using walker.Right foot drop- tripped and fell again (05/31). No fx then. SOCIAL Hx (updated):In past: Helped out at [employer]. Also at [employer] ([employer]).04/27: Can't walk much. Left knee and also [...] she had compression fx (thoracic) with lower arthritis.BMD@[facility]= -1.5 (12/28);Left hip= -2.0 (12/28)No change [...] aches/pains. Neuro - Has fibromyalgia- Had seen [place] (but saw AUBREY once and then saw Aurelio). Ward Wyman MD [address] [place] [address], [phone] , [place] [facility] 07/04/2023 18:29:50 024 text/ht ml DiabetesReported bypatient.Labs:last [...] no blurred vision ([facility] ([place])- (07/01). cataracts OU out in spring 2023.); [...] connected):01/29: 120-195 (01/29); higher values AM after [place] salad from friend.Other times: 130-300 (01/29);07/01: date/time off. Meter review during visit:Mostly 200-400 until recently but working on more low-CHO lately and values have come down to < 200 (still higher in PM). INTOLERANT to statins. Not clear if tried Zetia.Lipid panel at goal on no meds.Feels she can't take meds for pain because of reactions. HYPERLIPIDEMIA:07/29: 167/82/51/57643/: 144/113/44/773/: 143/93/46/788/22: 116//: 411-64-05-87/: 771-45-53-8606/28: 155//19: 170/63/58/99 NAFLD:Told of RAMEY with fibrosis (tesfaye Carvajal). 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 LFTs:AST/ALT= [...] was 111 (02/22); was at goal (2016)- [facility]CARDS: STACIA. Will be seeing EP 04/30. [place] not till 07/30.SLEEP: Brandyn in [place].GI is Damaris. colitisBREAST: Vik was surgeon. HypothyroidismDiabetes Type IILV on 07/01Last labs on 10/29 A1C-8.8 up [facility] blood sugars about 3 times daily , [...] dose- Sleep apnea on CPAP (Brandyn at [facility]). Also sleeps poorly because of pain- back/fibromyalgia/abdominal (left side worse)/night sweats.- AFib (post-cardiac surgery in 2021) Open heart surgery three valves done 08/19/21, Mini stroke after that 09/24/21PT now has A-Fib DX PAST MEDICAL Hx (updated):T2DM Hx of arthritis and fibromyalgia (question of lupus). 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 Planning for surgery (REAL ESTATE REPRESENTATIVE is Margaret but has been referred to [facility] as REAL ESTATE REPRESENTATIVE onc)10/20- Had surgery (removed area and told [...] fell- broke right hip (08/28)- was pinned ([facility])- in pain in rehab (1 month). To [facility] ([facility]) and got total hip (03/30). Still using walker.Right foot drop- tripped and fell again (05/31). No fx then. 01/29: Afib. Tried electrical tx but not helping. SOCIAL Hx (updated):In past: Helped out at [employer]- [employer]. Also at [employer] ([employer]).04/27: Can't walk much. Left knee and also [...] she had compression fx (thoracic) with lower arthritis.BMD@[facility] [place]= -1.5 (12/28);Left hip= -2.0 (12/28)No change vs. [...] and then saw Aurelio). Ward Wyman MD [address] [place] [address], [place], [phone] , [facility] 01/29/2024 18:45:15 024 text/ht ml Seen By [...] : 12- 1PM - scrambled egg and yoruba muffin or toast - sometimes all fruit [...] with MD - 08/05/24 2:00 PM - [facility] with Nursing -RTC Aj with RN for repeat Blood sugar review - bring diary of Blood sugars and put pill box in with [employer] utensils. RX's sent to pharmacy - If none - refills needed on any meds ? Ozempic 1 mg Lab orders - standing orders in place until 01/2025 DME forms completed? n/a Nurse : ESMER Torres RN [facility] 03/26/2024 15:28:55 025 text/ht ml DiabetesReported bypatient.Labs:last Hemoglobin A1C: 7-8 (9.2 (07/02) was 8.1 (01/29) was 10.8 (10/29); was 8.8 (07/29) was 8.1 (04/29); was 8.5 (07/28). was 5.6 (12/27); was 7.8 (06/29) was 7.6 (03/28); was 6.5 (09/25); was 7.1 (06/28); was 6.9 (12/25); was 9.3 (09/24); ); microalbumin/creatinine ratio: (44 (02/28); was 8 (07/29) was 78.7 (07/28); was BDL (03/28)); serum creatinine: (0.86 (07/02); was 0.9 (07/29); was 0.8 (04/29); was 1.1 (07/28); was 0.9 (03/28) Diabetes Medications:GLP1-RA: Semaglutide (Ozempic) (1mg. Has some constipation and nausea.); Secretagogues: Glimepiride (4 mg bid; was 8 mg.); Was on trulicity- too much nausea and no benefit. Renal/Hypertension (HTN) MedsTorsemide. metoprolol Lipid Medications:Not on any lipid meds. Trouble with all usual meds. Other Medications:ASA (baby ASA.); Eliquis since AFib. On torsemide (off lasix). Digoxin (for Afib for rate control) Eliquis; On Colazar (balsalazide) for colitis. No recent prednisone. In past, has been on short courses of steroids (2018). Not recently on prednisone for SOB. In past for bronchitis- not in 2020. GI: Damaris. Associated Symptoms:no increased urinary frequency; no polyuria (On torsemide.); no nocturia; no burning or discomfort with urination; no foul odor or discharge; no polydypsia ( Drinks a fair amount- diuretic gives dry mouth. (also on CPAP).); no blurred vision ([facility])- (07/01). cataracts OU out spring 2023. Has appt scheduled 10/30.); WEIGHT (home): 183 (08/30); was 180 (01/29); was 185 (07/01@home); was 214 [...] numbness of feet (but some other sx. );kidney disease microalbuminuria; no neuropathy; Ongoing foot pain- arthritis + fibro + small amount of neuropathy ([place]) Hypoglycemia Symptomsfrequency of hypoglycemic episodesinfrequently; Dizziness when hypoglycemic (Also lightheaded, dizzy, and fluorescent lights bother her.); Headache when hypoglycemic; Shaky when hypoglycemic (Starts to get jittery as first sx.); Sx: dizzy, h/a and shaky.Notes:MEDICATION INTOLERANCE:INTOLERANT TO: Metformin, sitagliptin, trulicity, jardiance, invokana, acarbose.Also cholesterol meds Tried 0.75 trulicity- had nausea but also other reasons at the time.- might consider re-trying (07/01).01/29: Tolerating ozempic at 0.25. Some nausea but not bad.08/30: No increase in s/e going up to 1 mg. Meter review (not connected):08/30: 120-199 (08/30 in AM);01/29: 120-195 (01/29); higher values AM after [place] salad from friend.Other times: 130-300 (01/29);07/01: date/time off. Meter review during visit:Mostly 200-400 until recently but working on more low-CHO lately and values have come down to < 200 (still higher in PM). INTOLERANT to statins. Not clear if tried Zetia.Lipid panel at goal on no meds.Feels she can't take meds for pain because of reactions. HYPERLIPIDEMIA:02/28: 164/105/49/9607/29: 167/82/51/25692: 144/113/44/773: 143/93/46/788/: 116//: 462-17-86-876/: 291-06-32-8606/28: 155//: 170/63/58/99 NAFLD:Told of RAMEY with fibrosis (sees Damaris). 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 LFTs:AST/ALT= 64/37 (02/28) was 59/41 (07/29); was 50/36 (04/29); was 28/88 (07/28); was 28/21 (03/28); was 26/21 (10/26); was 29/25 (06/28); was 34//28 (12/25); was 59/50 (09/24); was 52/46 (02/23); was 89/88 (07/24); was 95/93 (07/23); was 45/38 (ULN = 32/33). [facility] is Audra ([facility])CARDS: STACIA. Will be seeing 04/30. [facility] not till 07/30.08/30: went to [place] for possible ablation- [facility] thought worth trying.SLEEP: Brandyn in [place].GI is Damaris. colitisBREAST: Vik was surgeon. Follow-Up: hyperlipidemiaFollow-Up: uncontrolled type 2 diabetes mellitusFollow-Up: hypothyroidismFollow-Up: Type 2 diabetes mellitus without complicationHypothyroidismDiabetes Type IILV on 01/29LAst nurse visit 03/31Last labs on 07/02 A1C-9.2-up and a bmp addedLabs cuedChecks blood sugars daily in the am , PT uses meter and will write the numbersno new concernsPT taking ozempic 1 mg weekly having constipation, some nausea but does not change and is tolerablePT states keeps falling and uses a cane but that is not new but going to physical therapy MEDICAL CONDITIONS:- T2DM without significant complications on glimepiride. Intolerant to meds. Uncontrolled- Fatty Liver. 2020: Told of cirrhosis (Damaris).- Intolerance to multiple medications (no statins, etc.)- Fibromyalgia- Benign Hypertension- Hypothyroidism on replacement dose- Sleep apnea on CPAP (Brandyn at [facility]). Also sleeps poorly because of pain- back/fibromyalgia/abdominal (left side worse)/night sweats.- AFib (post-cardiac surgery in 2021) Open heart surgery three valves done 08/19/21, Mini stroke after that 09/24/21PT now has A-Fib DX PAST MEDICAL Hx (updated):T2DM Hx of arthritis and fibromyalgia (question of lupus). 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 Planning for surgery (REAL ESTATE REPRESENTATIVE is Margaret but has been referred to [facility] as REAL ESTATE REPRESENTATIVE onc)10/20- Had surgery (removed area and told [...] fell- broke right hip (08/28)- was pinned ([facility])- in pain in rehab (1 month). To [facility] ([facility]) and got total hip (03/30). Still using walker.Right foot drop- tripped and fell again (05/31). No fx then. 01/29: Afib. Tried electrical tx but not helping.08/30: Referred for ablation but told risk>benefit. To [facility] for other opinion who promised everything . No other changes. 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 Also at [employer] ([employer]).04/27: Can't walk much. Left knee and also general aches/pains.08/28: Very limited- SOB easily. not adjusting well (he still works).07/01: not much activity d/t hip issues. had PT at home. Hopes to do some outside.01/29: Very tired with chronic AFib. 12 hours at night and naps during day.08/30: Doing some PT. mostly focused on balance. Sways with eyes closed. FAMILY Hx (updated):Brother from blood clot- about 66. (+) DM. Hx of autoimmune disease (thymus removed as adult).3 sons- alive and well. one has colitis.8 grandchildren- all healthy.1 great-grand. 1 year (2023)01/29: All OK.08/30: all OK HYPOTHYROID:Hx of hypothyroid- on generic 50mcg since 2022)TSH= 3.3 (02/28) was 3.25 (07/29) was 3.25 (07/29); was 8.33 (07/28) was 2.83 (03/28); was 3.4 (09/25); was 2.81 (06/28); was 3.9 (02/23); was 3.53 (02/22); was 2.98 (07/23); was 3.46 (10/22); was 3.01 (07/22)- was 3.56 (06/24). Had been up to 3.39 (before was 3.26). fT4 (dialysis; 0.8 - 1.7)=1.7 (02/28) Takes T4 (50mcg) in AM with water.Has coffee 15 minutes later (cream). Has bkst 2 hours later. TEMP: ongoing cold- felt winter was worse. Temp in house is 70 and still wears sweatshirts and blanket.Has Afib. No CP/pressure.Some constipation. On Fe sometimes.Bowels: colitis OK lately (08/30).Some nausea from ozempic. Sleeping a lot. wakes 11AM and can take naps too. Ever since heart surgery (valves).Attributes to metoprolol.Still on CPAP.Energy- always tired since heart surgery.Tremors- both hands shake sometimes (since last surgery) GASTROINTESTINAL:Hx of U/C with chronic bowel issues.Told of fistula but has improved lately.No recent bleeding BOWELS: Combination of UC and IBS and fissure. On pepcid.Balsalazide with bouts of colitis.Knows of fatty liver. Told in past ofanemia(10.7/34.5);36.6 (10/29) FIBROMYALGIA: Long hx of pain. Generally energy [...] I'd be afraid not to take it .07/30: takes gabapentin- hard to tell if helps. BONE HEALTH:Had said she had compression fx (thoracic) with lower arthritis.BMD@[facility] [place]= -1.5 (12/28);Left hip= -2.0 (12/28)No change vs. 03/23. 08/30: falling a lot. Using cane when out of home. 10/26: GI sx (since summer 2019). rectal [...] and then saw Aurelio). Ward Wyman MD [address] [place] [address], [phone] , [facility] 08/08/2024 04:57:58 025 text/ht ml DiabetesReported bypatient.Labs:last Hemoglobin A1C: 7-8 (8.0 (10/30) was 9.2 (07/02) was 8.1 (01/29) was 10.8 (10/29); was 8.8 (07/29) was 8.1 (04/29); was 8.5 (07/28). was 5.6 (12/27); was 7.8 (06/29) was 7.6 (03/28); was 6.5 (09/25); was 7.1 (06/28); was 6.9 (12/25); was 9.3 (09/24); ); microalbumin/creatinine ratio: (76 (10/30) was 44 (02/28); was 8 (07/29) was 78.7 (07/28); was BDL (03/28)); serum creatinine: (1.12 (10/30) was 0.86 (07/02); was 0.9 (07/29); was 0.8 (04/29); was 1.1 (07/28); was 0.9 (03/28); Low K in 10/2024. Diabetes Medications:GLP1-RA: Semaglutide (Ozempic) (1mg. More severe constipation/impaction.); Secretagogues: Glimepiride (4 mg bid; was 8 mg.); Was on trulicity- too much nausea and no benefit. 10/30: Could try mounjaro 5mg. (mail away). Renal/Hypertension (HTN) MedsTorsemide. metoprolol Lipid Medications:Not on any lipid meds. Trouble with all usual meds. Other Medications:ASA (baby ASA.); Eliquis since AFib. On torsemide (off lasix). Digoxin (for Afib for rate control) On Colazar (balsalazide) for colitis. No recent [...] no blurred vision ([facility] ([facility])- (07/01). cataracts OU out spring 2023. Had to cancel appt 10/30.); WEIGHT (home): 181.2 (10/30); was 183 (08/30); was 180 (01/29); was 185 (07/01@home); was 214 [...] numbness of feet (but some other sx. );kidney disease microalbuminuria; no neuropathy; Ongoing foot pain- arthritis + fibro + small amount of neuropathy ([place]) Hypoglycemia Symptomsfrequency of hypoglycemic episodesinfrequently; Dizziness when hypoglycemic (Also lightheaded, dizzy, and fluorescent lights bother her.); Headache when hypoglycemic; Shaky when hypoglycemic (Starts to get jittery as first sx.); Sx: dizzy, h/a and shaky.Notes:MEDICATION INTOLERANCE:INTOLERANT TO: Metformin, sitagliptin, trulicity, jardiance, invokana, acarbose.Also cholesterol meds Tried 0.75 trulicity- had nausea but also other reasons at the time.- might consider re-trying (07/01).01/29: Tolerating ozempic at 0.25. Some nausea but not bad.08/30: No increase in s/e going up to 1 mg.10/30: having severe impaction on ozempic. PCP suggesting to switch to mounjaro.OK to try 5mg. Meter review (not 10/30):10/30: BG higher while sick recently. had been 120-140s08/30: 120-199 (08/30 in AM);01/29: 120-195 (01/29); higher values AM after [place] salad from friend.Other times: 130-300 (01/29);07/01: date/time off. Meter review during visit:Mostly 200-400 until recently but working on more low-CHO lately and values have come down to < 200 (still higher in PM). INTOLERANT to statins. Not clear if tried Zetia.Lipid panel at goal on no meds.Feels she can't take meds for pain because of reactions. HYPERLIPIDEMIA:10/30: 109/73/37/57;02/28: 164/105/49/963: 167/82/51/11073: 144/113/44/773: 143/93/46/788/: 116//: 336-49-97-876: 717-24-75-8606/28: 155//: 170/63/58/99 NAFLD:Told of RAMEY with fibrosis (sees [facility]aris). 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 LFTs:AST/ALT= 64/37 (02/28) was 59/41 (07/29); was 50/36 (04/29); was 28/88 (07/28); was 28/21 (03/28); was 26/21 (10/26); was 29/25 (06/28); was 34//28 (12/25); was 59/50 (09/24); was 52/46 (02/23); was 89/88 (07/24); was 95/93 (07/23); was 45/38 (ULN = 32/33). [facility]CARDS: STACIA. Will be seeing EP 04/30. [facility] not till 07/30.08/30: went to [place] for possible ablation- [facility] thought worth trying.SLEEP: Brandyn in [place].GI is Damaris. colitis (retired)BREAST: Vik was surgeon. Follow-Up: hyperlipidemiaFollow-Up: uncontrolled type 2 diabetes mellitusFollow-Up: hypothyroidismFollow-Up: Type 2 diabetes mellitus without complicationHypothyroidismDiabetes Type IIPlace of ServicePatient at home or other non-healthcare setting (POS - 10)Patient at a facility (POS - 02)LV on 08/30LAst nurse visit 03/31Last labs on 10/30 A1C-8 down from 9.2Labs in place until 08/31Checks blood sugars daily in the am , PT uses meter and will write the numbers, This am 158, PT states not checking for a few weeks as has not been feeling well ,PT taking the Ozempic 1 mg weekly and then was going to increase but was scheduled [place] heart [place] in December 19.2024. Then developed cough and xray was negative and then had a bowel impaction but then this resolved, PCP suggested to take the mounjaro as this is easier on the stomach, PT stopped taking the ozempic this past week. PT stated has been giving constipation taking the ozempicPT doing a video visit to discuss the above.PT seeing PT for history of falling and was using cane, PT was doing PT but stopped due to illness Hx of falling and uses a cane but that is not new but going to physical therapy MEDICAL CONDITIONS:- T2DM without significant complications on glimepiride. Intolerant to meds. Uncontrolled- Fatty Liver. 2020: Told of cirrhosis (Damaris).- Intolerance to multiple medications (no statins, etc.)- Fibromyalgia- Benign Hypertension- Hypothyroidism on replacement dose- Sleep apnea on CPAP (Brandyn at [facility]). Also sleeps poorly because of pain- back/fibromyalgia/abdominal (left side worse)/night sweats.- AFib (post-cardiac surgery in 2021)- GI bleed (2024) with low Hgb needing xfusion. Open heart surgery three valves done 08/19/21, Mini stroke after that 09/24/21PT now has A-Fib DX PAST MEDICAL Hx (updated):T2DM Hx of arthritis and fibromyalgia (question of lupus). 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 Planning for surgery (REAL ESTATE REPRESENTATIVE is Margaret but has been referred to [facility] as REAL ESTATE REPRESENTATIVE onc)10/20- Had surgery (removed area and told [...] fell- broke right hip (08/28)- was pinned ([facility])- in pain in rehab (1 month). To [place] ([facility]) and got total hip (03/30). Still using walker.Right foot drop- tripped and fell again (05/31). No fx then. 01/29: Afib. Tried electrical tx but not helping.08/30: Referred for ablation but told risk>benefit. To [facility] for other opinion who promised everything . No other changes.10/30: sick recently (reason for virtual visit).SOCIAL Hx (updated):In past: Helped out at [employer]- [employer]. Also at [employer] ([employer]).04/27: Can't walk much. Left knee and also general aches/pains.08/28: Very limited- SOB easily. not adjusting well (he still works).07/01: not much activity d/t hip issues. had PT at home. Hopes to do some outside.01/29: Very tired with chronic AFib. 12 hours at night and naps during day.08/30: Doing some PT. mostly focused on balance. Sways with eyes closed. FAMILY Hx (updated):Brother from blood clot- about 66. (+) DM. Hx of autoimmune disease (thymus removed as adult).3 sons- alive and well. one has colitis.8 grandchildren- all healthy.1 great-grand. 1 year (2023)01/29: All OK.08/30: all OK 10/30: retaining fluid. Also impacted. Had to cancel procedure in [place]PA at PCP wanted to change GLP1-RA from ozempic to Mounjaro.Last dose of 1mg ozempic was 4 days ago.For impaction- some self-disimpaction. AlsoHad good BM today (soft). Using miralax daily and faithfully.Has increased water intake too. Previously had increased diuretic in response to distal edema.HYPOKALEMIA:K= 3.4 (10/30); Hasn't been taking K pills. Takes torsemide- Encourage her to re-start K supplements. HYPOTHYROID:Hx of hypothyroid- on generic 50mcg since 2022)TSH= 3.32 (10/30) was 3.3 (02/28) was 3.25 (07/29) was 3.25 (07/29); was 8.33 (07/28) was 2.83 (03/28); was 3.4 (09/25); was 2.81 (06/28); was 3.9 (02/23); was 3.53 (02/22); was 2.98 (07/23); was 3.46 (10/22); was 3.01 (07/22)- was 3.56 (06/24). Had been up to 3.39 (before was 3.26). fT4= 1.45 (10/30) wasfT4 (dialysis; 0.8 - 1.7)= 1.7 (02/28) Takes T4 (50mcg) in AM with water.Has coffee 15 minutes later (cream). Has bkst 2 hours later. TEMP: Some chills (/625)- wearing sweatshirt and blanket and thermostat at 72.Ongoing for a while (08/30 also)Chills worse since she had xfusion (1-2 weeks ago in early 10/30). Done because of Hgb= 6.7.- thought to be from internal bleeding.Damaris retired. Has Afib. No CP/pressure.10/30: Severe constipation. On Fe in past but stopped in 2023 (after ER visit).Some nausea from ozempic. Energy: poor. Sleeping a lot.wakes 11AM and can take naps too. Ever since heart surgery (valves).Attributes to metoprolol.Also attributes to heart surgery Still on CPAP.Tremors- (R >L) intermittent. GASTROINTESTINAL:Hx of U/C with chronic bowel issues.Told of fistula but has improved lately.No recent bleeding BOWELS: Combination of UC and IBS and fissure. On pepcid.Balsalazide with bouts of colitis.Knows of fatty liver.10/30: big issue has been constipation. Told in past ofanemia(10.7/34.5);6.7 (10/30); given xfusion. Previously was .6 (10/29) FIBROMYALGIA: Long hx of pain. Generally energy [...] I'd be afraid not to take it .07/30: takes gabapentin- hard to tell if helps. BONE HEALTH:Had said she had compression fx (thoracic) with lower arthritis.Hip fx in 2023.BMD@[facility]= -1.5 (12/28);Left hip= -2.0 (12/28)No change vs. 03/23. 10/30: uses cane prn. To PT because falling a lot. Encouraged her to use cane when out of home. 10/26: GI sx (since summer 2019). rectal [...] and then saw Aurelio). Ward Wyman MD [address] [place] [address], [phone] , [facility] 10/23/2024 12:18:21 OBGyn Episode No OBEpisode recorded.
--- OUTSIDE RECORDS SUMMARY | 2024-11-05 13:37 | XMS_ITS | Patient Health Record ---
Author Organization [facility] Address [address] [place] [address] Care Team Providers Care Manager Pipeline Name Role Phone Terence Quick Primary Care Provider FATOU Murphy Unavailable [phone] Allergies Allergen (clinical drug ingredient) Drug/Non Drug Allergy documented on EMR Reaction Allergy Type Onset Date Status oxycodone Oxycodone headache Drug Allergy Active tramadol Tramadol headache Drug Allergy Active Reason For Referral No Information Medications Medication SIG (Take, Route, Frequency, Duration) Notes Start Date End Date Status Torsemide 20 MG as directed Orally 40MG in AM an d 20MG in the afternoon Active Acetaminophen 325 MG 1 tablet as needed Orally every 4 hrs PRN Active Pepcid 40 MG 1 tablet at bedtime Orally Once a day Active Ferrous Sulfate 325 (65 Fe) MG 1 tablet Orally Once a day Active Glimepiride 4 MG 1 tablet with breakfast or the first main meal of the day Orally Twice a day Active Estradiol 10 MCG 1 tablet Vaginal Two times a Week Active Aspirin 81 MG 1 tablet Orally Once a day Active Ozempic (1 MG/DOSE) 4 MG/3ML as directed Subcutaneous Active Digoxin 125 MCG 1 tablet Orally Active Escitalopram Oxalate 10 MG 1 tablet Orally Once a day Active Clobetasol Propionate 0.05 % 1 application Externally Twice a day Active Diclofenac Sodium 1 % as directed Externally twice daily PRN pain for 90 days Not-Taking Lidocaine 5 % 1 patch remove after 12 hours Externally Once a day PRN Active Menthol (Topical Analgesic) 4 % as directed Externally two times daily for 90 days 11/22/2023 Not-Taking Gabapentin 400 MG 1 capsule Orally Once a day Active Diclofenac Sodium 1 % as directed Externally twice daily for pain for 90 days Active Biotin 10 MG 1 tablet Orally Once a day Active Multi Adult Gummies - as directed Orally Active Probiotic Active Capsaicin-Menthol 0.025-10 % as directed Externally twice daily as needed for pain for 90 days 08/11/2023 Not-Taking Lidocaine-Prilocaine 2.5-2.5 % as directed Externally twice daily for pain for 90 days Active Calcium Active Metoprolol Succinate ER 200 MG 1 tablet Orally Once a day Active Eliquis 5 MG 1 tablet Orally Twice a day Active Levothyroxine Sodium 50 MCG 1 tablet in the morning on an empty stomach Orally Once a day Active Vitamin D 50 MCG (1999 UT) 1 capsule Orally Once a day Active Colazal 750 MG 2 capsules Orally Twice a day Active Potassium Chloride ER 10 MEQ 1 tablet with food Orally Twice a day Active Stool Softener 100 MG 1 capsule as needed Orally Once a day Active Problems Problem Type SNOMED Code ICD Code Onset Dates Problem Status W/U Status Risk Notes Problem 440627309 Type 2 diabetes mellitus with diabetic polyneuropathy (E11.42) Active confirmed Problem 130641056 group home (curre nt) use of insulin (Z79.4) Active confirmed Problem 944871278 Arthritis of leda nt of toe (M19.079) Active confirmed Problem 86321052 Venous insufficiency (I87.2) Active confirmed Vital Signs Heart Rate 85 /min 08/28/2024 Temperature 96.3 degrees Fahrenheit 08/28/2024 Respiratory Rate 16 /min 08/28/2024 Height 5ft 8in in 08/28/2024 Weight 184.0 lbs 08/28/2024 BMI 27.97 kg/m2 08/28/2024 Encounters Encounter Location Date Provider Diagnosis [facility] [address] 11/15/2023 FATOU DICKSON Type 2 diabetes mellitus with diabetic polyneuropathy E11.42 ; Venous insufficiency I87.2 ; Arthritis of joint of toe M19.079 ; Dystrophic nail L60.3 ; Pain in right foot M79.671 and Pain in left foot M79.672 [facility] [address] [address] 02/21/2024 FATOU DICKSON Type 2 diabetes mellitus with diabetic polyneuropathy E11.42 ; Venous insufficiency I87.2 ; Arthritis of joint of toe M19.079 ; Dystrophic nail L60.3 ; Pain in right foot M79.671 and Pain in left foot M79.672 [facility] [address] [address] 05/24/2024 FATOU DICKSON Type 2 diabetes mellitus with diabetic polyneuropathy E11.42 ; Venous insufficiency I87.2 ; Arthritis of joint of toe M19.079 ; Dystrophic nail L60.3 ; Pain in right foot M79.671 and Pain in left foot M79.672 [facility] [address] [address] 08/28/2024 FATOU DICKSON Type 2 diabetes mellitus with diabetic polyneuropathy E11.42 ; Venous insufficiency I87.2 ; Arthritis of joint of toe M19.079 ; Dystrophic nail L60.3 ; Pain in right foot M79.671 and Pain in left foot M79.672 [facility] [address] [address] 11/21/2023 FATOU DICKSON [facility] [address] [address] 05/16/2024 FATOU DICKSON Assessments Encounter Date Diagnosis (ICD Code) Assessment Notes Treatment Notes Treatment Clinical Notes Section Notes 11/15/2023 Type 2 diabetes mellitus with diabetic [...] no cure for neuropathy, only symptom management. 08/28/2024 Type 2 diabetes mellitus with diabetic polyneuropathy [...] due to her varicose veins and vasculitis. 08/28/2024 Venous insufficiency (ICD-10 - I87.2) We discussed [...] She is in agreement with this plan. 08/28/2024 Arthritis of joint of toe (ICD-10 - M19.079) We discussed her x-ray findings. I explained she does have osteopenia in her feet, likely from the disuse when she was in rehab. We also discussed she does have arthritis in her toes. We discussed she cannot take oral NSAIDs due to her anticoagulation therapy. Her insruance will not cover the diclofenac gel. 05/24/2024 Arthritis of joint of toe (ICD-10 [...] Aseptic trimming of toenails x 10 with leather novelty parts cutter, pt tolerated well. Discussed with the patient that routine nail care services are only covered by insurance every 60 days. Pt understands that if they would like to return prior to this time frame, they may have to pay out of pocket. Pt to return for another evaluation in 3 months. 08/28/2024 Dystrophic nail (ICD-10 - L60.3) Aseptic trimming of toenails x 10 with leather novelty parts cutter, pt tolerated well. Discussed with the [...] Aseptic trimming of toenails x 10 with leather novelty parts cutter, pt tolerated well. Discussed with the [...] Aseptic trimming of toenails x 10 with leather novelty parts cutter, pt tolerated well. Discussed with the patient that routine nail care services are only covered by insurance every 60 days. Pt understands that if they would like to return prior to this time frame, they may have to pay out of pocket. Pt to return for another evaluation in 3 months. 11/15/2023 Pain in right foot (ICD-10 - [...] will usually fall off on its own. 08/28/2024 Pain in right foot (ICD-10 - M79.671) [...] Pain in left foot (ICD-10 - M79.672) 08/28/2024 Pain in left foot (ICD-10 - M79.672) 02/21/2024 Pain in left foot (ICD-10 - M79.672) 11/15/2023 Pain in left foot (ICD-10 - M79.672) Plan Of Treatment Pending Test Test Name Order Date X ray : Foot, left 3v 08/08/2023 X ray : Foot, right 3v 08/08/2023 Next Appt Details Provider Name:FATOU DICKSON, 11/27/2024 02:45:00 PM, [address], [address], Insurance Providers Payer Name Payer Address Payer Phone Subscriber Number Group Number Insured Name Patient Relationship to Insured Coverage Start Date Coverage End Date [employer] of [place] [address] [place] [phone] [id number] Vedopalmer My villalba Self - patient is the insured [employer] [address] [place] [address] [phone] [id number] Daryadoainsleyl My villalba Self - patient is the insured Medical (General) History Medical History History ICD Code inflammatory arthritis fibromyalgia vasculitis, leukocytoclastic degenerative disease lumbosacral spine SUE + >1:1600 H 2000 allergies IBS esophageal reflux hypertension type II diabetes osteopenia does BMD with Dr. Robles ([employer] ) obstructive sleep apnea on CPAP asthma [...] mitral, tricuspid and atrial valv es 08/18/2021 [facility]- fall at home- right hip fx [facility] 4 nights Afib 06/2022 vertebrobasilar TIA 09/22/2021- [facility]- difficulty breathing 11/18/2018-11/19/2018
--- OUTSIDE RECORDS SUMMARY | 2024-11-05 13:37 | XMS_ITS | Clinical Summary ---
Author Organization [facility] [address] [facility] Address [address] [place] [address] Phone Care Team Providers Care Mechanical Engineering Director Name Role Phone Lizette Hutton Primary Care Provider [phone] Allergies No known active allergies Medications acetaminophen (TYLENOL) 325 mg tablet Take 3 tablets (975 mg total) by mouth. 09/03/19 23 Active Eliquis 5 mg tablet Take 1 tablet (5 mg total) by mouth 2 (two) times a day. Active aspirin 81 mg tablet Take 81 mg by mouth. Active budesonide-formo teroL (SYMBICORT) 160-4.5 mcg/actuation inhaler Inhale 2 puffs by mouth. 07/04/19 19 Active clobetasoL (TEMOVATE) 0.05 % ointment APPLY 1 APPLICATION EXTERNALLY TWICE DAILY FOR UP TO 2 WEEKS 07/03/19 25 Active cholecalciferol (VITAMIN D-3) 50 mcg (2,000 unit) capsule Take 1 capsule (2,000 Units total) by mouth 1 (one) time each day. Active glimepiride (AMARYL) 4 mg tablet Take 1 tablet (4 mg total) by mouth 2 (two) times a day. Active Ozempic 2 mg/dose (8 mg/3 mL) injection pen INJECT 2MG SUBCUTANEOUSLY ONCE WEEKLY (EVERY 7 DAYS) 08/07/19 25 Active potassium chloride 20 mEq tablet extended release 07/13/19 25 Active neomycin-polymyx in-dexamethameth asone (POLYDEX) 3.5 mg/g-10,000 unit/g-0.1 % ointment 11/28/19 24 Active metoprolol tartrate (LOPRESSOR) 100 mg tablet Take 1 tablet (100 mg total) by mouth. 08/31/19 25 Active lidocaine (LIDODERM) 5 % patch 12/25/19 24 Active Synthroid 50 mcg tablet Take 1 tablet (50 mcg total) by mouth 1 (one) time each day. 08/06/19 25 Active gabapentin (NEURONTIN) 400 mg capsule Take 1 capsule (400 mg total) by mouth. 07/27/19 25 Active Vagifem 10 mcg tablet vaginal tablet See Instructions, 1 tablet Vaginally - WED and SAT, 0 Refills, Maintenance, 10/08/18 2:02:48 PM EDT 10/09/19 Active escitalopram (LEXAPRO) 10 mg tablet Take 1 tablet (10 mg total) by mouth 1 (one) time each day. Active digoxin (LANOXIN) 125 mcg (0.125 mg) tablet Take 1 tablet (125 mcg total) by mouth 1 (one) time each day. Active Farxiga 10 mg tablet 12/20/19 24 Active sucralfate (CARAFATE) 1 gram tablet TAKE 1 TABLET TWICE A DAY. START 2 DAYS PRE-PROCEDURE AND FINISH A 6 WEEK COURSE. 07/25/19 25 Active torsemide (DEMADEX) 20 mg tablet TAKE 2 TABLETS IN THE MORNING, TAKE 1 TABLET IN THE EVENING Active famotidine (PEPCID) 40 mg tablet Take 1 tablet (40 mg total) by mouth 2 (two) times a day. 180 tablet 3 09/19/19 25 Active polyethylene glycol (MIRALAX) 17 gram packetIndication s:Constipation, unspecified constipation type Take 17 g by mouth 1 (one) time each day. 510 g 2 10/11/19 25 025 Active Active Problems Problem Noted Date Diagnosed Date Fatty liver 09/18/2024 Ulcerative colitis (CMS/HCC V24, CMS/HCC V28) Other constipation 09/18/2024 Gastroesophageal reflux disease without esophagi tis 09/18/2024 Encounters Date Type Department Care Team Description 10/22/2024 Telephone Gastroenterology - [address] [phone] Vero Webster MD Consult Appointment 10/10/2024 Telephone Gastroenterology - [address] [phone] Vero Webster MD Advice Only 09/18/2024 1:30 PM EDT Office Visit Gastroenterology - [address] [phone] Everardo Ocampo MD Fatty liver (Primary Dx); Ulcerative colitis without complications, unspecified location (CMS/HCC V24, CMS/HCC V28); Gastroesophageal reflux disease without esophagitis; Other constipation 08/09/2024 Telephone Gastroenterology - [address] [phone] Everardo Ocampo MD INFORMATION NEEDED from Last 3 Months Medical History Medical History Date Comments Essential hypertension, benign 07/11/2005 D X:Essential hypertension, benign Heartburn 07/11/2005 DX:Heartburn Unspecified asthma(493.90) 07/11/2005 DX:Un specified asthma(493.90) Other specified personal his tory presenting hazards to health(V15.89) DX:Other specifie d personal history presenting hazards to health(V15.89); COMMENT: valshainka ca Family History Medical History Relation Name Comments Breast cancer Neg Hx Social History Tobacco Use Types Packs/Day Years Used Date Smoking Tobacco: Never Smokeless Tobacco: Never Alcohol Use Standard Drinks/Week Comments Yes 0 (1 standard drink = 0.6 oz pur e alcohol) Comments Unknown Sex and Gender Information Value Date Recorded Sex Assigned at Not on file Legal Sex Female 9:04 AM EST Gender Identity Not on file Sexual Orientation Not on file Obstetrics History Last Filed Vital Signs Vital Sign Reading Time Taken Comments Blood Pressure - - Pulse - - Temperature - - Respiratory Rate - - Oxygen Saturation - - Inhaled Oxygen Concentration - - Weight 84.4 kg (186 lb) 09/18/2024 1:13 PM EDT Height 172.7 cm (5' 8 ) 09/18/2024 1:13 PM EDT Body Mass Index 28.28 09/18/2024 1:13 PM EDT Plan of Treatment Upcoming Encounters Date Type Department Care Team (Late st Contact Info) Description 12/02/2024 2:20 PM EDT Office Visit Gastroenterology - [address] [phone] Marine Adamson PA [address] [address] 03/25/2025 1:40 PM EST Office Visit Gastroenterology - 299 [place] [address] [phone] Vero Webster MD [address] [address] Health Maintenance Due Date Last Done Comments Diabetes: Annual GFR (Glomerular Filtration Rate) 1947 Diabetes: Annual Foot Exam 1957 Diabetes: Annual Retina Eye Exam 1957 DTaP,Tdap,and Td Vaccines (1 - Tdap) 1966 Hepatitis A Vaccines (1 of 2 - Risk 2-dose series) 1966 Pneumococcal Vaccine: 50+ Years (1 of 2 - PCV) 1966 Zoster Vaccines (1 of 2) 1966 Hepatitis B Vaccines (1 of 3 - Risk 3-dose series) 2007 RSV Immunization Adult Patients (1 - 1-dose 75+ series) 2022 Cholesterol Screening (Lipid Panel) 04/10/2022 Depression Screening 04/10/2022 Falls Risk Assessment 04/10/2022 Hepatitis C Screening 04/10/2022 Medicare Annual Wellness Visit 04/10/2022 Social Influencers of Health Screening 04/10/2022 Hypertension/CHF/CAD Annual BMP Blood Test 04/20/2022 COVID-19 Vaccine ( season) 2024 03/11/2021, 07/16/2020, 06/20/2020 Diabetes: Annual Urine Albumin-Creatinine Ratio (uACR) 09/18/2024 Diabetes: Blood Sugar Control Test (HGBA1C) 09/18/2024 Osteoporosis Screening (Bone Density Screening) 12/22/2032 12/22/2022 Influenza Vaccine Completed 03/01/2024, , 03/17/2022, Additional history exists HIB Vaccines Aged Out No longer eligi ble based on patient's age to complete this topic HPV Vaccines Aged Out No longer eligi ble based on patient's age to complete this topic IPV Vaccines Aged Out No longer eligi ble based on patient's age to complete this topic MMR Vaccines Aged Out No longer eligi ble based on patient's age to complete this topic Meningococcal ACWY Vaccine Aged Out N o longer eligible based on patient's age to complete this topic Meningococcal B Vaccine Aged Out No l onger eligible based on patient's age to complete this topic RSV Immunization Patients Under 20 months Aged Out No longer eligible based on patient's age to complete this topic Varicella Vaccines Aged Out No longer eligible based on patient's age to complete this topic Procedures Procedure Name Priority Date/Time Associated Diagnosis Comments EXTERNAL CLINICAL LAB 10/17/2024 DXA BONE DENSITY STUDY 1+ SITS AXIAL SKEL Routine 12/22/2022 1:52 PM EDT Encounter for screening for osteoporosis from Last 3 Months or Most Recently Relevant to Health Maintenance Results * External clinical lab (10/17/2024) Provider [facility] BLOOD ORDERABLES Fin al Result * DXA BONE DENSITY STUDY 1+ SITS AXIAL SKEL (12/22/2022 1:52 PM EDT) Anatomical Region Laterality Modality Bone Densitometr y 08/16/2022 9:30 AM EDT Narrative 12/22/2022 6:21 PM EDT BONE DENSITY SCAN (DEXA): FINDINGS: Lumbar Spine T-score is -1.5. (SD relative to 20-29 y/o adult) Z-score is 0.9. (SD relative to age matched peers) This is considered osteopenia by WHO criteria. Left Hip T-score is -2.0. Z-score is 0.2. This is considered osteopenia by WHO criteria. Comparison exam(s): 03/08/2016. No statistically significant change in bone mineral density. IMPRESSION: IMPRESSION: Osteopenia by WHO criteria. The [facility] Department of Internal Medicine recommends using National Osteoporosis Foundation (NOF) guidelines in treatment decisions related to osteoporosis. NOF guidelines suggest considering treatment for postmenopausal women and men aged 50 or older presenting with the following: History of hip or vertebral fracture. T-score = -2.5 (DXA) at the femoral neck, total hip, or spine, after appropriate evaluation to exclude secondary causes. Low bone mass (T-score between -1.0 and -2.5 at the femoral neck or spine) AND a 10-year probability of a hip fracture = 3% OR a 10-year probability of a major osteoporosis-related fracture = 20% based on the [place]-adapted WHO algorithm Please note that all treatment decisions require clinical judgment and consideration of individual patient factors, including patient preferences, co-morbidities, previous drug use, risk factors not captured in the FRAX model (e.g., frailty, falls, vitamin D deficiency, increased bone turnover, interval significant decline in bone density) and possible under- or over-estimation of fracture risk by FRAX. Optional alternative screening schedule based on bessie Burns., [facility] May 26, 2011 for patients with osteopenia (based on hip BMD T-score) is as follows: * advanced osteopenia (T scores -2.00 to -2.49), BMD testing every year * moderate osteopenia (T scores -1.50 to -1.99), BMD testing every 5 years mild osteopenia or normal BMD (T scores -1.50 and higher), BMD testing every 15 years Procedure Note Droys Partida MD - 06/12/2023 BONE DENSITY SCAN (DEXA): FINDINGS: Lumbar Spine T-score is -1.5. (SD relative to 20-29 y/o adult) Z-score is 0.9. (SD relative to age matched peers) This is considered osteopenia by WHO criteria. Left Hip T-score is -2.0. Z-score is 0.2. This is considered osteopenia by WHO criteria. Comparison exam(s): 03/08/2016. No statistically significant change inbone mineral density. IMPRESSION: IMPRESSION: Osteopenia by WHO criteria. The [facility] Department of Internal Medicine recommendsusing National Osteoporosis Foundation (NOF) guidelines in treatment decisions related toosteoporosis. NOF guidelines suggest considering treatment for postmenopausal women and menaged 50 or older presenting with the following: History of hip or vertebral fracture. T-score = -2.5 (DXA) at the femoral neck, total hip, or spine, afterappropriate evaluation to exclude secondary causes. Low bone mass (T-score between -1.0 and -2.5 at the femoral neck or spine)AND a 10-year probability of a hip fracture = 3% OR a 10-year probability of a majorosteoporosis-related fracture = 20% based on the [place]-adapted WHO algorithm Please note that all treatment decisions require clinical judgment andconsideration of individual patient factors, including patient preferences, co- morbidities,previous drug use, risk factors not captured in the FRAX model (e.g., frailty, falls, vitaminD deficiency, increased bone turnover, interval significant decline in bone density) andpossible under- or over-estimation of fracture risk by FRAX. Optional alternative screening schedule based on annmarie Burns al., [place] 2011 for patients with osteopenia (based on hip BMD T-score) is as follows: * advanced osteopenia (T scores -2.00 to -2.49), BMD testing every year * moderate osteopenia (T scores -1.50 to -1.99), BMD testing every 5years mild osteopenia or normal BMD (T scores -1.50 and higher), BMD testingevery 15 years Ward Wyman MD [facility] [place] DXA PROCEDURES Final Resul t from Last 3 Months or Most Recently Relevant to Health Maintenance [place] [address] MEDICARE BLUE CROSS - [place] MED[place]ANTAGE Care Teams Mechanical Engineering Director Relationship Specialty Start Date End Date Lizette Hutton PA [address] [place] [phone] PCP - General Physician Forensics Team Director 10/22/24
== END 2024-11-05 14:02 | disposition home or self-care (01) ==
LOC: HO.HPSW 12:44
PROVIDERS: PCP Internal Medicine; Visit Provider Nurse Practitioner Family
DX: J18.0 Bronchopneumonia, unspecified organism (principal); J45.20 Mild intermittent asthma, uncomplicated; J44.9 Chronic obstructive pulmonary disease, unspecified
CPT/HCPCS: 99214; G2211

== ENCOUNTER → 2024-11-05 12:43 | Outpatient (BNVA) | payer MEDICARE, SELFPAY | PROVIDERS: PCP Internal Medicine; Visit Provider Nurse Practitioner Family | DX: R50.9 Fever, unspecified (principal); R05.9 Cough, unspecified; R09.3 Abnormal sputum; J45.20 Mild intermittent asthma, uncomplicated; J44.9 Chronic obstructive pulmonary disease, unspecified; J18.0 Bronchopneumonia, unspecified organism | CPT/HCPCS: 99212 ==

== ENCOUNTER 2025-04-11 14:15 | Outpatient (AMB) | payer MEDICARE, SELFPAY ==
[2025-04-11 14:26] VITALS: BP 154/60; PULSE 61; O2SAT 97; BMI 27.1
--- NOTE | 2025-04-11 14:26 | A.OFFVIS_ITS ---
Vital Signs 04/11/25 14:26 Height 5 ft 8 in Weight 178 lb 9.191 oz BMI 27.1 BP 154/60 H Blood Pressure Location Lt brachial Position Sitting Pulse 61 Pulse Source Pulse Oximeter Pulse Oximetry (%) 97 Oxygen Delivery Method Room Air Intake Visit Reasons: domenico Paper Feeder Required: No Accompanied by: Self / Same As Patient Allergies No Known Allergies Allergy (Verified 04/11/25 14:34) HPI Comments Details: The Patient is a 80-year-old woman known COPD pulmonary nodules and obstructive sleep apnea. She has been having more shortness of breath lately. She was found to have a nodular finding on her mammogram. Under being a large tumor. She did have surgery November 16 1017 at [facility]. She underwent lumpectomy. Postoperatively she has significant shortness of breath. Chest x-ray demonstrated perihilar congestion and opacities in the diffuse right lung and also right left lung have weight. She was placed on oxygen. After 1 day the patient was discharged. Continued having significant shortness of breath she could not tolerate the symptoms and therefore she went back to the ED at [facility]. There she had a CT scan of the chest demonstrating no evidence of any pulmonary emboli. However, she has small pleural effusions and she has some areas of ground-glass opacities primarily in the mid to upper lung zones. Her brain not her Pap significantly elevated over 1000. She was aggressively diuresed. She was able to be off oxygen CT scan also demonstrated pulmonary nodules. She has had multiple scans in the past primarily abdominal CT scans that have demonstrated stable nodular densities. However, then look at the whole lung field. The patient now is home. Her respiratory status is still an issue. Moderate dyspnea on exertion. She had been on inhalers in the past. However she was having adverse effects with the rec leg cramp. She subsequently is stop the inhalers altogether. She is wondering if she should be on maintenance inhaler. She typically sees the best effect when she is sick. She has not had pulmonary function studies. The patient has been using her CPAP. The CPAP therapy continues to be affecting beneficial. However, she is no longer working appropriately. She does get her supplies through [employer]. It appears the machine has malfunction. And likely needs to be replaced. At this point I will give her placement prescription. She needs to continue using his CPAP due to her increased cardiovascular risk. She does have evidence of pulmonary hypertension. She of also had an echocardiogram demonstrating moderate to severe mitral stenosis. No history rheumatic fever. 07/18/2019 the patient is here for pulmonary follow-up visit. Overall she is feeling better. Monitoring closely her volume status. We did review again her findings from [facility] where she had the elevated brain atretic peptide suggesting heart failure but also had areas of nodular densities and ground- glass opacities on her CT scan. Therefore, repeat CT scan of the chest should be done in November which should be a year from her last 1. We did review her pulmonary function studies demonst rating no evidence of any obstruction although she does have a restrictive ventilatory defect consistent with restrictive lung disease. Partly due to her body habitus. 11/04/2020 the patient is here for pulmonary follow-up visit. Overall the patient has been doing okay from a respiratory status. She continues to have shortness of breath with activity. Ushp-cm-iuaeujth severity. Unfortunately, she was told that her mitral valve is getting worse. She was scheduled to see Cardiology for cardiac catheterization. She is thinking about going elsewhere such as [place] to be further evaluated. In the meantime we did review again her pulmonary function studies demonstrating no evidence of any obstruction although she does have a restrictive component. The patient does not have to use regular inhalers although she should have a rescue inhaler available as needed. She was supposed to have a CT scan of the chest. But, with everything going on with her heart she is open to put aside for now. I explained to her that this is important but we can postpone for 6 months. in the meantime she is using her CPAP. The CPAP therapy has been affecting beneficial. However, her CPAP is no longer working his broke she did call her [employer] company and they recommended that she get a new prescription for new CPAP at this time. Will submit 1 to her [employer] company at this time. The patient needs to continue using her CPAP specially with her cardiovascular risk factors in with worsening valvular disease. 05/11/2021 the patient is here for a pulmonary follow-up visit. The patient continues to have some dyspnea on exertion. In addition to that has been feeling more congested lately. Moderate severity. She is coughing up some mucus for the last several days. Denies any fevers or chills. She did follow up in [place]. She did have a cardiac catheterization although I do not have the results. They are concerned about the elevated pulmonary pressures noted on her echocardiogram although explained to her that we more important to look at the pressure readings from the cardiac catheterization. 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 Although, she also has a history of sleep apnea being treated with PAP therapy and also has a history of a pulmonary emboli in the past and no longer any anticoagulation. Therefore I talked to her about doing additional testing to make sure that we assess for the other etiologies of pulmonary hypertension although most likely her etiologies mainly cardiac. The patient will undergo pulmonary function studies today and hopefully we can get a 6 minute walk test if her DLCO was decreased. I also reviewed her cardiac CT scan that she had in [place] at which demonstrated a small subcentemeter pulmonary nodules. 06/18/2021 the patient is here for pulmonary follow-up visit. She continues to have dyspnea on exertion, moderate severity. The patient understands that she does have abnormal PFTs with a severe diffusion impairment. This is likely multifactorial related to her underlying pulmonary hypertension from her underlying vascular disease and also obstructive sleep apnea. The patient needs to use her CPAP regularly. We talked about the importance of doing so. In the meantime she did undergo a V/Q scan which demonstrated decreased perfusion in the central vessels. This could be explained by a dilated pulmonary arterial trunk. Her [place] CT [place] [facility] [place] Will request copies of the CT to pers onally visualized the pulmonary trunk. If no clear explanation for her abnormal perfusion scan the patient needs to repeat the CT scan of the chest. She also has pulmonary nodules. She understands the CT scan of the chest that she had in [place] does not incorporate the whole lung since is mainly a cardiac CT scan. The patient is waiting to hear back from [place]. She understands that she does need to undergo a surgical correction especially for that mitral stenosis. Subsequently after that she will probably have to undergoes further intervention for the aortic valve. 03/08/2022 the patient is here for pulmonary follow-up visit. Since we last spoke the patient underwent her open heart surgery for her the repair. She did have a porcine valve placed at the mitral valve, a ring around the tricuspid valve in her aortic valve was opened up. The surgery occurred back in August. Although she does not feel any better from a breathing standpoint. She actually sometimes feels that she is worse. She is very short of breath winded with activity. Moderate severity. She has been participating cardiac rehab. She does have a repeat echo pending soon to readdress her cardiac function and also the pulmonary hypertension. Patient is also struggling with her CPAP. She has a mild a CPAP is broken beyond repair. We did request a replacement machine her [employer]. We did submit all the paper for the new Pap therapy. The patient does benefit from her CPAP she does use it more than 4 hours a night. Therefore will reach out to her DME company in order to facilitate the process in order to get her a new APAP. during the visit the patient did go for 6 minutes walk test. She did desaturate down to 80% she was dramatic with that occurred. She was then placed on 2 L pulse she did do about better and a also maintained Around 93%. Therefore, will go ahead and also start her on oxygen with activity. Requesting conserving device at 2 L pulse. 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 07/15/2024 the patient is here for a pulmonary follow-up visit. The patient overall is doing about the same. She still complains of dyspnea on exertion, but better. Mild in severity. No longer using oxygen supplementation. Her APAP is not working any longer. It is broken beyond repeair. She needs to get a replacment APAP LYLE. She has cardiovascular risk factors and she has daytime drowsiness with an EPWORTH 11/24. 04/11/2025 the patient is here for pulmonary follow-up visit. The patient overall is doing well her CPAP machine is not working well. She needs to get a replacement. [facility] she [facility] a new updated machine. For now she is trying to have her machine work asbestos possible. The patient continues use her respiratory therapy with good effect. She was sick over the summer with a viral syndrome but most likely was a transfusion reaction as she had a blood transfusion prior to getting the increased respiratory complaints. Overall she feels better at this time. She is concerned about future vaccines. I did let her know to make sure she let people and all about a potential transfusion reaction and to be premedicated before any transfusions. COUNTS INCLUDE 234 BEDS AT THE [facility] Medical History (Updated 04/12/25 @ 13:14 by Duane Ahumada MD) DOMENICO (obstructive sleep apnea) Valvular heart disease Pulmonary hypertension Pulmonary nodules Valvular heart disease Asthma Chronic restrictive lung disease COPD (chronic obstructive pulmonary disease) Social History Patient Tobacco Use Status: Never used Tobacco Review of Systems Const Reports daytime sleepiness, Reports difficulty sleeping, Reports fatigue and Denies night sweats ENT Denies change in voice, Denies lip swelling, Denies mouth pain, Reports nasal congestion, Reports nasal discharge and Denies tongue swelling Card Denies chest pain, Reports dyspnea and Reports dyspnea on exertion Resp Reports cough, Reports dyspnea and Reports dyspnea on exertion GI Denies abdominal pain Musc Denies no additional complaints Neuro Denies Neuro-related abnormal movements Psych Denies no additional complaints Endo Reports fatigue Stoney/Lymph Denies easy bleeding and Denies lymphadenopathy Aller/Immun Denies lip swelling and Denies tongue swelling Physical Exam Vital Signs: Last Vital Signs Pulse 61 04/11/25 14:26 BP 154/60 H 04/11/25 14:26 Pulse Ox 97 04/11/25 14:26 Oxygen Delivery Method Room Air 04/11/25 14:26 BMI result Body Mass Index 27.1 Const General: alert Neck Neck: Yes normal visual inspection, Yes full ROM and Yes no lymphadenopathy Chest Chest palpation & inspection: normal inspection of the chest Resp Effort & Inspection: normal respiratory effort Auscultation: diminished lung sounds Cardio Rate: regular rate Rhythm: regular rhythm Heart sounds: S1 normal heart sound present, S2 normal heart sound present and Murmur heart sound present GI Palpation (GI): Soft to palpation and nontender Auscultation: normal bowel sounds Skin General skin exam: rashes and/or lesions noted Assessment & Plan Assessment & Plan (1) COPD (chronic obstructive pulmonary disease): Code(s): J44.9 - Chronic obstructive pulmonary disease, unspecified Category: Medical Qualifiers: COPD type: chronic bronchitis Chronic bronchitis type: simple Qualified Code(s): J41.0 - Simple chronic bronchitis (2) Chronic restrictive lung disease: Code(s): J98.4 - Other disorders of lung Category: Medical (3) Pulmonary nodules: Code(s): R91.8 - Other nonspecific abnormal finding of lung field Category: Medical (4) Pulmonary hypertension: Code(s): I27.20 - Pulmonary hypertension, unspecified Category: Medical (5) Valvular heart disease: Comment: mitral stenosis and aortic stenosis Code(s): I38 - Endocarditis, valve unspecified Category: Medical (6) DOMENICO (obstructive sleep apnea): Code(s): G47.33 - Obstructive sleep apnea (adult) (pediatric) Category: Medical Plan APAP therapy. Needs a replacement APAP. Her APAP is broken beyond repair-but had to wait. stopped oxygen SID as needed F/U 12 months Coding Level of Care Code Est Pt Level 4 (45236) Diagnoses Simple chronic bronchitis J41.0 COPD type: chronic bronchitis Chronic bronchitis type: simple Chronic restrictive lung disease J98.4 Pulmonary nodules R91.8 Pulmonary hypertension I27.20 Valvular heart disease I38 DOMENICO (obstructive sleep apnea) G47.33 Time Spent (min) 16
--- OUTSIDE RECORDS SUMMARY | 2025-04-11 18:26 | XMS_ITS | Encounter Summary ---
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 Role Phone Unavailable Primary Care Provider Unavailabl e Encounter Details Date Type Department Care Team (Late st Contact Info) Description 04/10/2025 Scanned Document [facility] [place] [facility] [address] [place] [address] Provider, Rita, [address] [place] [address] Social History Tobacco Use Types Packs/Day Years Used Date Smoking Tobacco: Never Assessed Comments Unknown Sex and Gender Information Value Date Recorded Sex Assigned at Not on file Legal Sex Female 11:53 AM EDT Gender Identity Not on file Sexual Orientation Not on file documented as of this encounter Plan of Treatment Not on file documented as of this encounter Visit Diagnoses Not on filedocumented in this encounter
--- OUTSIDE RECORDS SUMMARY | 2025-04-11 18:26 | XMS_ITS ---
[facility] Care Team Organization Name Specialty Phone Email Start Date End [facility] 04/10/2025
--- OUTSIDE RECORDS SUMMARY | 2025-04-11 18:26 | XMS_ITS | Clinical Summary ---
Author Organization [facility] Address [address] [place] [id number] Care Team Providers Care Manager Medical Device Name Role Phone Unavailable Primary Care Provider Unavailabl e Encounters Date Type Department Care Team Description 04/10/2025 Scanned Document [facility] [address] [place] [address] Provider, MD Rita from Last 3 Months Social History Tobacco Use Types Packs/Day Years Used Date Smoking Tobacco: Never Assessed Comments Unknown Sex and Gender Information Value Date Recorded Sex Assigned at Not on file Legal Sex Female 11:53 AM EDT Gender Identity Not on file Sexual Orientation Not on file Plan of Treatment Health Maintenance Due Date Last Done Comments Advance Care Planning 1945 Hepatitis C Virus Screening 1945 DTaP/Tdap/Td Vaccines (1 - Tdap) 1966 Pneumococcal Vaccines 50+ (1 of 1 - PCV) 1997 Zoster (Shingles) Vaccine (1 of 2) 1997 RSV Vaccine 50 years and old er and Patients (1 - 1-dose 75+ series) 2022 COVID-19 Vaccine ( - 2024-2 6 season) 2025 Hepatitis B Vaccines Aged Out No long er eligible based on patient's age to complete this topic
--- OUTSIDE RECORDS SUMMARY | 2025-04-11 18:26 | XMS_ITS | Clinical Summary ---
Author Organization [facility] [address] [facility] Address [address] [place] [address] Phone Care Team Providers Care Puncher And Fastener Name Role Phone Lizette Hutton Primary Care Provider + [phone] Allergies Active Allergy Reactions Criticality Noted Date Comments Oxycodone Headache 12/02/2024 Tramadol Headache 12/02/2024 Medications acetaminophen (TYLENOL) 325 mg tablet Take 3 tablets (975 mg total) by mouth. 09/03/19 23 Active Eliquis 5 mg tablet Take 1 tablet (5 mg total) by mouth 2 (two) times a day. Active aspirin 81 mg tablet Take 81 mg by mouth. Active budesonide-form oteroL (SYMBICORT) 160-4.5 mcg/actuation inhaler Inhale 2 puffs [...] mEq tablet extended release 07/13/19 25 Active neomycin-polymy hossein-dexamethame thasone (POLYDEX) 3.5 mg/g-10,000 unit/g-0.1 % ointment 11/28/19 [...] day. 180 tablet 3 09/19/19 25 Active lactobacillus combination no.4 (Probiotic) 3 billion cell capsule Probiotic Active ferrous sulfate 325 mg (65 mg elemental iron) tablet 1 tablet (325 mg total) 1 (one) time each day at the same time. Active albuterol HFA (PROAIR HFA ; PROVENTIL HFA ; VENTOLIN HFA) 90 mcg/actuation inhaler Inhale 2 puffs by mouth every 6 (six) hours if needed for shortness of breath. 11/06/19 25 Active conjugated estrogens (Premarin) vaginal cream Active balsalazide (COLAZAL) 750 mg capsuleIndicati ons:Inflammator y bowel diseases (IBD) Take 3 capsules (2,250 mg total) by mouth 3 (three) times a day. 810 capsule 3 03/25/20 25 026 Active balsalazide (COLAZAL) 750 mg capsule Take 3 capsules (2,250 mg total) by mouth 3 (three) times a day. 025 Discontin ued(Reord er) Active Problems Problem Noted Date Diagnosed Date Aching pain 11/06/2024 Aortic valve disorder 11/06/2024 Arthritis of joint of toe 11/06/2024 Atrial fibrillation ([facility] V24, [facility] V28) 0 11/06/2024 Degeneration of intervertebral disc of lumbar re gion 11/06/2024 Diarrhea 11/06/2024 Benign hypertension 11/06/2024 Fibromyositis 11/06/2024 Headache 11/06/2024 Heart failure with preserved ejection fraction ([facility] V24, [facility] V28) 11/06/2024 Hyperlipidemia 11/06/2024 Hypoglycemia 11/06/2024 Hypothyroidism 11/06/2024 Obstructive sleep apnea syndrome 11/06/2024 Phyllodes tumor, benign 11/06/2024 Pulmonary hypertension ([facility] V24, [facility] V28 ) 11/06/2024 Superficial thrombophlebitis of lower extremity 11/06/2024 S/P MVR (mitral valve replacement) 11/06/2024 Pure hypercholesterolemia 11/06/2024 Type 2 diabetes mellitus wit hout complications ([facility] V24, [facility] V28) 11/06/2024 Venous insufficiency 11/06/2024 Vulvar intraepithelial neoplasia (CURTIS) grade 2 0 11/06/2024 Fatty liver 09/18/2024 Ulcerative colitis ([facility] V24, [facility] V28) Other constipation 09/18/2024 Gastroesophageal reflux disease without esophagi tis 09/18/2024 CURTIS III (vulvar intraepithelial neoplasia III) 0 01/26/2015 Overview (11/06/2024): Clear margins; Dr Skinner 05/2014 Asthma 07/11/2005 Essential hypertension, benign 07/11/2005 Heartburn 07/11/2005 Encounters Date Type Department Care Team Description 04/10/[address] [facility] - Main Lab [address] [facility] [place] [address] Fabienne Garcia MD Acute vaginitis 03/25/2025 1:40 PM EST Office Visit Gastroenterology - [address] [facility] [address] [place] [phone] Vero Webster MD Inflammatory bowel diseases (IBD) (Primary Dx); Iron deficiency anemia due to chronic blood loss; Slow transit constipation 02/24/2025 12:45 PM EDT - 02/24/2025 11:59 PM EDT Hospital Encounter Ultrasound - [facility] [address] [place] [address] Acute UTI Discharge Disposition: Home or Self Care from Last 3 Months Surgical History Surgery Date Site/Laterality Comments OTHER SURGICAL HISTORY 09/01/2016 Capsule endoscopy: Rapid small bowel transit under 2.5 hours, 2 nonbleeding angioectasias. Otherwise study normal COLONOSCOPY 08/05/2016 ESOPHAGOGASTRODUODENOSCOPY 05/31/2018 ?early GAVE ESOPHAGOGASTRODUODENOSCOPY 08/05/2016 COLONOSCOPY 08/08/2018 LIVER BIOPSY 08/22/2017 Steatohepatitis pattern of injury, grade 2 stage II-III Medical History Medical History Date Comments Essential hypertension, benign 07/11/2005 D X:Essential hypertension, benign Heartburn 07/11/2005 DX:Heartburn Unspecified asthma(493.90) 07/11/2005 DX:Un specified asthma(493.90) Other specified personal his tory presenting hazards to health(V15.89) DX:Other specifie d personal history presenting hazards to health(V15.89); COMMENT: valva ca Metabolic dysfunction-associ ated fatty liver disease (MAFLD) Obesity A-fib (CMS/HCC V24, CMS/HCC V28) Family History Medical History Relation Name Comments Breast cancer Neg Hx Social History Tobacco Use Types Packs/Day Years Used Date Smoking Tobacco: Never Smokeless Tobacco: Never Alcohol Use Standard Drinks/Week Comments Not Currently 0 (1 standard drink = 0.6 oz [...] - Inhaled Oxygen Concentration - - Weight 80.6 kg (177 lb 9.6 oz) 03/25/2025 1:30 P M EST Height 172.7 cm (5' 8 ) 03/25/2025 1:30 PM EST Body Mass Index 27 03/25/2025 1:30 PM EST Plan of Treatment Health Maintenance Due Date [...] series) 2022 Cholesterol Screening (Lipid Panel) 04/10/2022 Falls Risk Assessment 04/10/2022 Hepatitis C Screening 04/10/2022 Medicare Annual Wellness Visit 04/10/2022 Social Influencers of Health Screening 04/10/2022 Hypertension/CHF/CAD Annual BMP Blood Test 04/20/2022 Depression Screening 05/08/2024 Diabetes: Annual Urine Albumin-Creatinine Ratio (uACR) 09/18/2024 Diabetes: Blood Sugar Control Test (HGBA1C) 09/18/2024 COVID-19 Vaccine (2024- season) 2025 03/11/2021, 07/16/2020, 06/20/2020 Influenza Vaccine (#1) 2025 , 01/24/2023, 03/17/2022, Additional history exists Osteoporosis Screening (Bone Density Screening) 12/22/2032 12/22/2022 Colorectal Cancer Screening: Colonoscopy Discontinued 12/11/2024 HIB Vaccines Aged Out No longer eligi [...] Procedure Name Priority Date/Time Associated Diagnosis Comments VAGINITIS PATHOGENS BY PCR Routine 04/10/2025 12:00 AM EST Acute vaginitis US PELVIS NON OB COMPLETE W TRANSVAGINAL Routine 02/24/2025 1:14 PM EDT Acute UTI EXTERNAL COLONOSCOPY REPORT Routine 12/11/2024 11:43 AM EDT DXA BONE DENSITY STUDY 1+ SITS AXIAL SKEL Routine 12/22/2022 1:52 PM EDT Encounter for screening for osteoporosis from Last 3 Months or Most Recently Relevant to Health Maintenance Results * (ABNORMAL) Vaginitis pathogens molecular study (04/10/2025 12:00 AM EST) Trichomonas vaginalis Negative Negative 04/11/2025 11:04 AM EST [facility] Gardnerella vaginalis Positive(A) Negative 04/11/2025 11:04 AM EST [facility] Celena Species Negative Negative 11:04 AM EST [facility] Swab Vaginal structure / Unknown 04/10/2025 04/10/2025 5:44 PM EST us Fabienne Garcia MD LAB MICROBIOLOGY - GENER AL ORDERABLES Final Result [facility] [address] [place] [address], * US Pelvis Non OB Complete w Transvaginal (02/24/2025 1:14 PM EDT) Anatomical Region Laterality Modality Body, Pelvis Ultrasound 02/24/2025 3:29 PM EDT Impressions 02/24/2025 3:34 PM EDT Limited exam. No uterine abnormality identified. Ovaries not visualized. -------- FINAL REPORT -------- Dictated By: Dorys Partida Dictated Date: 02/24/2025 15:29 ET Assigned Physician: Dorys Partida Reviewed and Electronically Signed By: Dorys Partida Signed Date: 02/24/2025 15:34 ET Workstation ID: [id number] Transcribed By: Self Edit Transcribed Date: 02/24/2025 15:29 ET Narrative 02/24/2025 3:34 PM EDT PELVIC ULTRASOUND HISTORY: Acute urinary tract infection. COMPARISON: 02/03/2015 FINDINGS: Both transabdominal and endovaginal pelvic ultrasound were performed. Exam limited by patient body habitus. Uterus: 7.0 x 5.3 x 2.8 cm in size. No focal solid lesion detected. Endometrium: 0.2 cm in thickness which is within normal limits for postmenopausal state. No abnormality identified. Right ovary: Not visualized. Left ovary: Not visualized. Cul-de-sac: No free fluid. Procedure Note Dorys Partida MD - 02/24/2025 PELVIC ULTRASOUND HISTORY: Acute urinary tract infection. COMPARISON: 02/03/2015 FINDINGS: Both transabdominal and endovaginal pelvic ultrasound were performed. Examlimited by patient body habitus. Uterus: 7.0 x 5.3 x 2.8 cm in size. No focal solid lesion detected. Endometrium: 0.2 cm in thickness which is within normal limits forpostmenopausal state. No abnormality identified. Right ovary: Not visualized. Left ovary: Not visualized. Cul-de-sac: No free fluid. IMPRESSION: Limited exam. No uterine abnormality identified. Ovaries not visualized. -------- FINAL REPORT -------- Dictated By: Dorys Partida Dictated Date: 02/24/2025 15:29 ET Assigned Physician: Dorys Partida Reviewed and Electronically Signed By: Dorys Partida Signed Date: 02/24/2025 15:34 ET Workstation ID: [id number] Transcribed By: Self Edit Transcribed Date: 02/24/2025 15:29 ET Maurice Zhu MD IMG US PROCEDURES Final Result * External Colonoscopy Report (12/11/2024 11:43 AM EDT) Anatomical Region Laterality Modality Endoscopy Historical Provider GI~PROCEDURE ORDERABLES F inal Result * DXA BONE DENSITY STUDY 1+ [...] IMPRESSION: IMPRESSION: Osteopenia by WHO criteria. The [facility] Department of Internal Medicine recommends using National [...] alternative screening schedule based on bessie Burns., [facility] May 26, 2011 for patients with osteopenia (based on hip BMD T-score) is as follows: * advanced osteopenia (T scores -2.00 to -2.49), BMD testing every year * moderate osteopenia (T scores -1.50 to -1.99), BMD testing every 5 years mild osteopenia or normal BMD (T scores -1.50 and higher), BMD testing every 15 years Procedure Note Dorys Partida MD - 06/12/2023 BONE DENSITY SCAN [...] IMPRESSION: IMPRESSION: Osteopenia by WHO criteria. The [facility] Department of Internal Medicine recommendsusing National Osteoporosis [...] alternative screening schedule based on bessie Burns., NEJMJanuary 2011 for patients with osteopenia (based on hip BMD T-score) is as follows: * advanced osteopenia (T scores -2.00 to -2.49), BMD testing every year * moderate osteopenia (T scores -1.50 to -1.99), BMD testing every 5years mild osteopenia or normal BMD (T scores -1.50 and higher), BMD testingevery 15 years Ward Wyman MD IM DXA PROCEDURES Final Resul t from Last 3 Months or Most Recently Relevant to Health Maintenance Insurance MEDICARE [facility] Care Teams Puncher And Fastener Relationship Specialty Start Date End Date Lizette Hutton PA [address] [place] [phone] PCP - General Physician Filter Changing Technician 10/22/24
--- OUTSIDE RECORDS SUMMARY | 2025-04-11 18:26 | XMS_ITS | Encounter Summary ---
Author Organization [facility] [place] [address] Care Team Providers Care Production Generalist Name Role Phone Lizette Hutton Primary Care Provider + [phone] Encounter Details Date Type Department Care Team ([facility] st Contact Info) Description 04/10/2025 Lab Requisition [facility] Lab [address] [place] [address] Fabienne Garcia MD [address] [facility] [address] [place] [phone] Acute vaginitis Social History Tobacco Use Types Packs/Day Years [...] on file documented as of this encounter Procedures Procedure Name Priority Date/Time Associated Diagnosis Comments VAGINITIS PATHOGENS BY PCR Routine 04/10/2025 12:00 AM EST Acute vaginitis documented in this encounter Results * (ABNORMAL) Vaginitis pathogens molecular study (04/10/2025 12:00 AM EST) Trichomonas vaginalis Negative Negative 04/11/2025 11:04 AM EST [facility] Gardnerella vaginalis Positive(A) Negative 04/11/2025 11:04 AM EST [facility] Celena Species Negative Negative 11:04 AM EST [facility] Swab Vaginal structure / Unknown 04/10/2025 04/10/2025 5:44 PM EST us Fabienne Garcia MD LAB MICROBIOLOGY - GENER AL ORDERABLES Final Result [facility] [address] [place] [address], documented in this encounter Visit Diagnoses Diagnosis Acute vaginitis Unspecified vaginitis and vulvovaginitis documented in this encounter Care Teams Production Generalist Relationship Specialty Start Date End Date Lizette Hutton PA [address] [place] [phone] PCP - General Physician Hotel Lobby Concierge 10/22/24 documented as of this encounter
== END 2025-04-11 14:58 | disposition home or self-care (01) ==
LOC: HO.HPS 14:15
PROVIDERS: PCP Internal Medicine; Visit Provider Hospitalist
DX: J41.0 Simple chronic bronchitis (principal); J98.4 Other disorders of lung; R91.8 Other nonspecific abnormal finding of lung field; I27.20 Pulmonary hypertension, unspecified; I38 Endocarditis, valve unspecified; G47.33 Obstructive sleep apnea (adult) (pediatric)
CPT/HCPCS: 99214

== ENCOUNTER → 2025-04-11 14:15 | Outpatient (BNVA) | payer MEDICARE, SELFPAY | PROVIDERS: PCP Internal Medicine; Visit Provider Hospitalist | DX: J41.0 Simple chronic bronchitis (principal); J98.4 Other disorders of lung; R91.8 Other nonspecific abnormal finding of lung field; I27.20 Pulmonary hypertension, unspecified; I38 Endocarditis, valve unspecified; G47.33 Obstructive sleep apnea (adult) (pediatric); Z99.89 Dependence on other enabling machines and devices | CPT/HCPCS: 99212 ==